=== PATIENT | female | born 1925 | race Caucasian/White ===

== ENCOUNTER 2017-09-30 12:01 | Emergency (ER) | payer MEDICARE, OTHER ==
[~2017-09-30] VITALS: Ht 162.6 cm; Wt 63.5 kg
[2017-09-30 12:05] VITALS: BP 175/97
--- OUTSIDE RECORDS SUMMARY | 2017-09-30 12:13 | XMS REPORT | CCD ---
Author Author SCHUYLER JHA Unknown Address [address] [address] [place], [place] [id number] Care Team Providers Care Pediatric Acute Care Unit Nurse Name Role Phone [facility] Attphys SARAI CARDENAS MD Prisurg W., EVANGELINA Patrick NASST W., LOS NASST S., GERDA NASST F., ROBER NASST K., LORIN NASST R., VERA Martines NASST Vital Signs Vital Sign Value Unit Date/Time Recent/Initial? Weight Measured 157.06 lbs 02/06/2015 17:45 Initial VS Height 65 in 02/06/2015 17:45 Initial VS BMI (Body Mass Index) 26.14 kg/m^2 02/06/2015 17:45 Initial VS BSA (Body Surface Area) 1.81 m^2 02/06/2015 17:45 Initial VS BP Systolic 141 mmHg 02/06/2015 17:45 Initial VS BP Diastolic 64 mmHg 02/06/2015 17:45 Initial VS Respiratory Rate 20 bpm 02/06/2015 17:45 Initial VS Heart Rate 81 bpm 02/06/2015 17:45 Initial VS O2 % BldC Oximetry 93 % 02/06/2015 17:45 Initial VS Body Temperature 97.5 degrees 02/06/2015 17:45 Initial VS BP Systolic 110 mmHg 02/07/2015 11:44 Most Recent VS BP Diastolic 51 mmHg 02/07/2015 11:44 Most Recent VS Respiratory Rate 18 bpm 02/07/2015 11:44 Most Recent VS Heart Rate 83 bpm 02/07/2015 11:44 Most Recent VS O2 % BldC Oximetry 95 % 02/07/2015 11:44 Most Recent VS Body Temperature 97.8 degrees 02/07/2015 11:44 Most Recent VS Allergies Allergy Code Allergy Type Reaction Status No Known Drug Allergies 0 No known drug allergies Active Procedures Procedure Code Procedure Type Date PT EVALUATION 227068425 SNOMED CT 02/07/2015 CX CHEST [address] 02/06/2015 ^CBC W/ MANUAL DIFF 98011338 SNOMED CT 02/07/[address] 02/07/[address] 02/07/[address] 02/07/[address] 02/07/2015 COMPREHENSIVE METABOLIC PANEL 842373301 SNOMED CT [address] 02/06/[address] 02/06/2015 ^UA WITH MICRO 821304591 SNOMED CT 02/06/2015 CULTURE URINE 625387603 SNOMED [address] 02/06/[address] 02/06/2015 UA ROUTINE C&S IF IND 296015348 SNOMED CT 02/06/2015 CREATININE UR RANDOM 933581742 SNOMED CT 02/06/2015 SODIUM UR RANDOM 022388773 SNOMED CT 02/06/2015 CULTURE BLOOD 64019290 SNOMED [address] 02/06/[address] 02/07/[address] 02/07/2015 CBC W/ AUTO DIFF (RFLX MAN DIFF IF IND) 0933101 SNOMED CT 02/07/2015 ^CBC W/ MANUAL DIFF 28077486 SNOMED CT 02/06/2015 COMPREHENSIVE METABOLIC PANEL 932647831 SNOMED CT 2014 CBC W/ AUTO DIFF (RFLX MAN DIFF IF IND) 6963858 SNOMED CT 02/06/2015 History of Immunizations Unknown or Not Available. Problems Problem Code Start Date Resolved Date Status Acute renal failure 23849721 Active Results COMPREHENSIVE METABOLIC PANEL - Collect Date/Time: 02/07/2015 07:05 Test Name Code Test Result Test Units Test Ref Range GLUCOSE 2345-7 108 MG/DL L=70 H=100 SODIUM 2951-2 137 MEQ/L L=135 H=148 POTASSIUM 2823-3 4.6 MEQ/L L=3.5 H=5.3 CHLORIDE 2075-0 107 MEQ/L L=96 H=110 CO2 2028-9 21 MEQ/L L=22 H=29 BUN 3094-0 41 MG/DL L=8 H=22 CREATININE 2160-0 4.1 MG/DL L=0.6 H=1.6 SGOT/AST 1920-8 190 IU/L L=10 H=40 SGPT/ALT 1742-6 87 IU/L L=8 H=54 ALK PHOS 6768-6 70 IU/L L=35 H=115 TOTAL PROTEIN 2885-2 5.5 G/DL L=5.5 H=8.5 ALBUMIN 1751-7 3.1 G/DL L=3.1 H=5.4 TOTAL BILI 1975-2 0.4 MG/DL L=0.0 H=1.5 CALCIUM 73856-4 7.5 MG/DL L=8.2 H=10.6 AGE 89 yrs GFR NonAA 10 GFR AA 12 eGFR 10 mL/min/1.7 eGFR AA* 12 mL/min/1.7 COMPREHENSIVE METABOLIC PANEL - Collect Date/Time: 02/06/2015 16:35 Test Name Code Test Result Test Units Test Ref Range GLUCOSE 2345-7 102 MG/DL L=70 H=100 SODIUM 2951-2 133 MEQ/L L=135 H=148 POTASSIUM 2823-3 4.2 MEQ/L L=3.5 H=5.3 CHLORIDE 2075-0 97 MEQ/L L=96 H=110 CO2 2028-9 22 MEQ/L L=22 H=29 BUN 3094-0 33 MG/DL L=8 H=22 CREATININE 2160-0 3.6 MG/DL L=0.6 H=1.6 SGOT/AST 1920-8 219 IU/L L=10 H=40 SGPT/ALT 1742-6 97 IU/L L=8 H=54 ALK PHOS 6768-6 89 IU/L L=35 H=115 TOTAL PROTEIN 2885-2 7.3 G/DL L=5.5 H=8.5 ALBUMIN 1751-7 4.2 G/DL L=3.1 H=5.4 TOTAL BILI 1975-2 0.5 MG/DL L=0.0 H=1.5 CALCIUM 80998-6 9.1 MG/DL L=8.2 H=10.6 AGE 89 yrs GFR NonAA 12 GFR AA 15 eGFR 12 mL/min/1.7 eGFR AA* 15 mL/min/1.7 CPK - Collect Date/Time: 02/07/2015 07:05 Test Name Code Test Result Test Units Test Ref Range CPK 2157-6 8031 IU/L L=0 H=235 CPK - Collect Date/Time: 02/06/2015 16:35 Test Name Code Test Result Test Units Test Ref Range CPK 2157-6 89504 IU/L L=0 H=235 CREATININE UR RANDOM - Collect Date/Time: 02/06/2015 20:35 Test Name Code Test Result Test Units Test Ref Range CREAT UR RAND 2161-8 82.3 MG/DL SODIUM UR RANDOM - Collect Date/Time: 02/06/2015 20:35 Test Name Code Test Result Test Units Test Ref Range NA UR RANDOM 2955-3 46 MEQ/L ACETAMINOPHEN - Collect Date/Time: 02/07/2015 02:20 Test Name Code Test Result Test Units Test Ref Range ACETAMINOPHEN 3298-7 <0.60 UG/ML ACETAMINOPHEN - Collect Date/Time: 02/06/2015 22:05 Test Name Code Test Result Test Units Test Ref Range ACETAMINOPHEN 3298-7 1.28 UG/ML CBC W/ AUTO DIFF (RFLX MAN DIFF IF IND) - Collect Date/Time: 02/07/2015 07:05 Test Name Code Test Result Test Units Test Ref Range WBC 93560-8 20.5 TH/CMM L=4.5 H=10.8 RBC 789-8 3.38 ML/CMM L=4.20 H=5.40 HGB 718-7 10.2 G/DL L=12.0 H=16.0 HCT 4544-3 32.6 % L=37.0 H=47.0 MCV 96 FL L=81 H=99 MCH 30.2 PG L=27.0 H=33.0 MCHC 31.3 G/DL L=31.0 H=36.0 RDW SD 52 FL L=36 H=50 RDW CV 14.7 % L=0.0 H=14.8 MPV 11.4 FL L=9.3 H=12.5 PLT 777-3 176 TH/CMM L=130 H=440 NRBC# 0.00 TH/CMM L=0.00 H=0.00 NRBC% 0.0 /100WBC L=0.0 H=2.0 %NEUT 74.3 % %LYMP 8.8 % %MONO 16.8 % %EOS 0.0 % %BASO 0.1 % #NEUT 15.23 TH/CMM L=2.10 H=8.20 #LYMP 1.81 TH/CMM L=0.90 H=5.20 #MONO 3.45 TH/CMM L=0.16 H=1.00 #EOS 0.01 TH/CMM L=0.00 H=0.80 #BASO 0.02 TH/CMM L=0.00 H=0.20 SEGS 81 % BANDS 8 % LYMPHS 11 % MANUAL DIFF SEE BELOW N/A MICRO 1+ N/A MACRO 1+ N/A ANISO 2+ N/A CBC W/ AUTO DIFF (RFLX MAN DIFF IF IND) - Collect Date/Time: 02/06/2015 16:35 Test Name Code Test Result Test Units Test Ref Range WBC 90896-4 16.2 TH/CMM L=4.5 H=10.8 RBC 789-8 3.92 ML/CMM L=4.20 H=5.40 HGB 718-7 12.0 G/DL L=12.0 H=16.0 HCT 4544-3 38.0 % L=37.0 H=47.0 MCV 97 FL L=81 H=99 MCH 30.6 PG L=27.0 H=33.0 MCHC 31.6 G/DL L=31.0 H=36.0 RDW SD 52 FL L=36 H=50 RDW CV 14.7 % L=0.0 H=14.8 MPV 11.7 FL L=9.3 H=12.5 PLT 777-3 196 TH/CMM L=130 H=440 NRBC# 0.00 TH/CMM L=0.00 H=0.00 NRBC% 0.0 /100WBC L=0.0 H=2.0 %NEUT 77.9 % %LYMP 10.0 % %MONO 11.8 % %EOS 0.2 % %BASO 0.1 % #NEUT 12.61 TH/CMM L=2.10 H=8.20 #LYMP 1.62 TH/CMM L=0.90 H=5.20 #MONO 1.91 TH/CMM L=0.16 H=1.00 #EOS 0.03 TH/CMM L=0.00 H=0.80 #BASO 0.01 TH/CMM L=0.00 H=0.20 SEGS 86 % BANDS 3 % LYMPHS 9 % MONOS 2 % MANUAL DIFF SEE BELOW N/A ANISO 1+ N/A PROTIME - Collect Date/Time: 02/07/2015 07:05 Test Name Code Test Result Test Units Test Ref Range PROTIME 75558-1 37.3 SEC L=9.9 H=11.9 INR 3.6 PROTIME - Collect Date/Time: 02/06/2015 16:35 Test Name Code Test Result Test Units Test Ref Range PROTIME 33518-5 28.6 SEC L=9.9 H=11.9 INR 2.8 UA ROUTINE C&S IF IND - Collect Date/Time: 02/06/2015 20:35 Test Name Code Test Result Test Units Test Ref Range COLOR YELLOW N/A NL: YELLOW APPEARANCE CLOUDY N/A NL: CLEAR SPEC GRAV 1.020 N/A NL: 1.002 - 1.022 pH 5.5 N/A NL: 5 - 9 PROTEIN 100 N/A NL: NEGATIVE mg/dl GLUCOSE NEGATIVE N/A NL: NEGATIVE mg/dl KETONE TRACE N/A NL: NEGATIVE mg/dl BILIRUBIN NEGATIVE N/A NL: NEGATIVE BLOOD LARGE N/A NL: NEGATIVE NITRITE NEGATIVE N/A NL: NEGATIVE LEUK SCREEN NEGATIVE N/A NL: NEGATIVE MICRO INDICATED? SEE BELOW N/A WBC/HPF 5-10 N/A NL: NEGATIVE RBC/HPF 5-10 N/A NL: NEGATIVE CASTS/LPF FEW HYALINE N/A NL: NEGATIVE CRYSTALS 1+ AMORPHOUS N/A NL: NEGATIVE MUCOUS THRDS NEGATIVE N/A NL: NEGATIVE BACTERIA 2++ N/A NL: NEGATIVE EPITH CELLS FEW SQUAMOUS N/A NL: NEGATIVE TRICHOMONAS NEGATIVE N/A NL: NEGATIVE YEAST NEGATIVE N/A NL: NEGATIVE CULT SET UP? YES N/A TSH - Collect Date/Time: 02/07/2015 07:05 Test Name Code Test Result Test Units Test Ref Range TSH 30965-0 2.02 mIU/L L=0.35 H=4.94 MAGNESIUM - Collect Date/Time: 02/07/2015 07:05 Test Name Code Test Result Test Units Test Ref Range MAGNESIUM 55356-0 2.2 MG/DL L=1.7 H=2.8 PHOSPHORUS - Collect Date/Time: 02/07/2015 07:05 Test Name Code Test Result Test Units Test Ref Range PHOSPHORUS 2777-1 4.3 MG/DL L=2.5 H=4.5 Active Medications Medication Code Dose Units Frequency Route Modification Start Date/Time NS 1000 ML IV [PREDEFINED] (7983) 999483 CONT IV IV 02/07/2015 02:32 ~~ NACL 0.9% (7983) 1000ML IV BAG 081847 4243 ML LEVOTHYROXINE (SYNTHROID)75 MCG 820682 75 MCG DAILY PO 02/06/2015 21:41 ZITHROMAX 500MG ADV IV [PREDEFINED] 571761 Q24H IVPB 02/06/2015 21:00 ~~ AZITHROMYCIN [ZITHROMAX]ADV VIAL : 500MG 035408 500 MG ~~ NACL 0.9% ADD-VANTAGE: 250 ML BAG 322578 250 ML ROCEPHIN IV [PREDEFINED]: 1GM IV Q 24 HR 021911 Q24H IVPB 02/06/2015 18:00 ~~ cefTRIAXone [ROCEPHIN] 1 GM ADV VIAL 714940 1 GM ~~ NACL 0.9% ADD-VANTAGE: 100 ML BAG 218986 100 ML ONDANSETRON [ZOFRAN] INJ 4 MG/2 ML VIAL 859131 4 MG PRN SIVP 02/06/2015 17:20 CHARISSA-COLACE (NEW FORMULATION) TABLET 324770 2 EA BID PO 02/06/2015 17:20 NACL 0.9% 500 ML IV BAG (7983-03) 177258 X1 IV 02/04/2015 01:30 ~~ NACL 0.9% 500 ML IV BAG (7983-03) 529448 500 ML Medications Administered During Visit Medication Dose Units Frequency Route Date/ Time of Last Dose ROCEPHIN IV [PREDEFINED]: 1GM IV Q 24 HR Q24H IVPB 02/06/2015 23:33 CHARISSA-COLACE (NEW FORMULATION) TABLET 2 TAB BID PO 02/07/2015 08:14 HEPARIN: 5000 UNITS/1ML VIAL 5000 UNIT(S) Q8H SQ 02/06/2015 19:57 NACL 0.9% 500 ML IV BAG (7983-03) X1 IV 02/06/2015 20:03 ZITHROMAX 500MG ADV IV [PREDEFINED] Q24H IVPB 02/06/2015 21:22 LEVOTHYROXINE (SYNTHROID)75 MCG 75 MCG DAILY PO 02/07/2015 06:55 NACL 0.9% 500 ML IV BAG (7983-03) X1 IV 02/06/2015 23:34 NACL 0.9% 500 ML IV BAG (7983-03) X1 IV 02/07/2015 01:25 NS 1000 ML IV [PREDEFINED] (7983) CONT IV IV 02/07/2015 02:56 Encounters Encounter Diagnosis Diagnosis Code Start Date ACUTE KIDNEY FAILURE UNSPECIFIED 5849 02/06/2015 Social History Smoking Status Code Start Date End Date Former smoker [id number] Patient Decision Aids Patient Decision Aid PATIENT PORTAL ACCESS Discharge Instructions You were admitted to [facility] on 02/06/2015 with a principal diagnosis of ACUTE KIDNEY FAILURE UNSPECIFIED. You were discharged from [facility] on 02/07/2015. Should you have any questions prior to discharge, please contact a member of your healthcare team. If you have left the hospital and have any questions, please contact your primary care physician. PATIENT PORTAL/ OTHER INSTRUCTIONS: Assisted on to Patient Portal. CHIEF COMPLAINT: patient presents to ER wiht c/o increasing weakness and falling 3 days. patient had recently seen her PCP. Chief Complaint and Reason For Visit Chief Complaint Date of Onset DELIRIUM UTI Function Status Unknown or Not Available. Plan of Care Unknown or Not Available. Referral/Transition of Care Unknown or Not Available.
--- OUTSIDE RECORDS SUMMARY | 2017-09-30 12:15 | XMS REPORT ---
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 Crop Research Scientist Name Role Phone PCP Unavailable Allergies and Adverse Reactions Name Reaction Notes doxycycline hyclate hives/ vomiting Plan of Treatment Planned Activity Comments Planned Date Planned Time Plan/Goal ASSAY THYROID STIM HORMONE 10/16/2012 12:00 AM PROTHROMBIN TIME 10/04/2014 12:00 AM Medications Active Name Start Date Estimated Completion Date SIG Comments flecainide oral tablet 100 mg take 1 tablet (100 mg) by oral route every 12 hours pravastatin oral tablet 40 mg 01/11/2014 01/06/2015 TAKE 1 TABLET BY MOUTH EVERY DAY amlodipine oral tablet 5 mg take 1 tablet (5 mg) by oral route once daily levothyroxine Oral tablet 75 mcg 05/07/2014 11/03/2014 TAKE 1 TABLET BY MOUTH DAILY for 30 days levothyroxine oral tablet 75 mcg 05/08/2014 TAKE ONE TABLET BY MOUTH DAILY levothyroxine oral tablet 75 mcg 05/08/2014 TAKE ONE TABLET BY MOUTH DAILY Lyrica oral capsule 75 mg 06/03/2014 11/30/2014 take 1 capsule (75 mg) by oral route 2 times per day for 30 days Pradaxa oral capsule 150 mg 07/17/2014 01/13/2015 take 1 capsule (150 mg) by oral route 2 times per day for 30 days prednisone oral tablet 1 mg 07/17/2014 01/08/2016 take 1tab by oral route once daily prednisone oral tablet 5 mg 07/17/2014 07/12/2015 take 1 tablet (5 mg) by oral route once daily for 90 days alprazolam oral tablet 0.25 mg 08/23/2014 11/21/2014 take 1 tablet by oral route 2 times a day for 90 days warfarin oral tablet 5 mg 10/04/2014 11/03/2014 take 1 tablet (5 mg) by oral route once daily for 30 days Name Start Date Expiration Date SIG Comments Neurontin Oral Capsule 300 mg 07/29/2010 01/25/2011 take 1 capsule (300 mg) by oral route 3 times per day for 30 days prednisone Oral Tablet 1 mg 09/30/2011 09/30/2011 take 3 tabs by mouth daily prednisone Oral Tablet 5 mg 12/16/2011 01/15/2012 TAKE 3 TABLETS BY MOUTH EVERY DAY levothyroxine Oral tablet 75 mcg 06/14/2012 09/12/2012 TAKE 1 TABLET BY MOUTH DAILY prednisone Oral tablet 1 mg 09/06/2012 10/06/2012 TAKE 3 TABLETS BY MOUTH DAILY hydrocodone-acetaminophen Oral tablet 5-500 mg 10/16/2012 01/14/2013 take 1 tablet by oral route 2 times a day as needed for 30 days gabapentin Oral capsule 300 mg 03/27/2013 06/25/2013 TAKE 1 CAPSULE BY MOUTH THREE TIMES DAILY losartan oral tablet 25 mg 04/15/2014 08/13/2014 take 1 tablet (25 mg) by oral route once daily for 30 days Lasix oral tablet 40 mg 04/15/2014 07/14/2014 take 1 tablet (40 mg) by oral route once daily for 30 days potassium chloride oral capsule, extended release 10 mEq 04/15/2014 07/14/2014 take 1 capsule (10 meq) by oral route once daily for 30 days Discontinued Name Start Date Discontinued Date SIG Comments Warfarin Oral Tablet 5 mg 07/17/2014 1/2 tablet on mon and th and 1 tablet all other days Metoprolol Succinate Oral Tablet Sustained Release 24 hr 25 mg 03/07/2014 take 1/2 tablet BID Metanx Oral Tablet 2.8-2-25 mg 09/18/2013 take 1 tablet by oral route 2 times a day Loratadine Oral Tablet 10 mg 09/17/2009 03/07/2014 take 1 tablet (10 mg) by oral route once daily Spiriva with HandiHaler Inhalation Capsule, w/Inhalation Device 18 mcg 200904/13/2011 inhale 1 capsule (18 mcg) by inhalation route once daily Triamcinolone Acetonide Topical Cream 0.1 % 08/21/2010 04/13/2011 apply a thin film to the affected skin areas by topical route 2 times per day Tramadol Oral Tablet 50 mg 09/30/2010 04/13/2011 take 1 tablet by oral route 3 times a day as needed Fosamax Oral Tablet 70 mg 09/18/2013 take 1 tablet by oral route doxycycline hyclate Oral Tablet 100 mg 12/01/2010 12/02/2010 take 1 tablet ( 100 mg) by oral route 2 times per day for 10 days Bactrim DS Oral Tablet 800-160 mg 12/02/2010 take 1 tablet by oral route 2 times per day for 7 days Bactrim DS Oral Tablet 800-160 mg 01/15/2011 take 1 tablet by oral route 2 times per day for 10 days Macrobid Oral Capsule 100 mg 01/15/2011 04/13/2011 take 1 capsule (100 mg) by oral route every 12 hours with food prednisone Oral Tablet 5 mg 01/18/2011 07/08/2011 take 1 mg/kg by oral route once daily terbinafine Oral Tablet 250 mg 01/21/2011 04/13/2011 take 1 tablet (250 mg) by oral route once daily for 12 weeks albuterol sulfate Inhalation HFA Aerosol Inhaler 90 mcg/Actuation 08/16/2011 inhale 1 - 2 puffs by inhalation route every 4 hours as needed promethazine-codeine Oral Syrup 6.25-10 mg/5 mL 08/16/2011 10/16/2012 take 5 milliliters by oral route every 6 hours as needed, not to exceed 30 mL in 24 hours tramadol Oral Tablet 50 mg 09/21/2011 09/18/2013 take 1 tablet (50 mg) by oral route every 6 hours as needed gabapentin Oral capsule 300 mg 02/16/2012 05/10/2012 TAKE 1 CAPSULE BY MOUTH THREE TIMES DAILY tramadol oral tablet 50 mg 03/07/2014 take 1 tablet (50 mg) by oral route every 6 hours as needed prednisone oral tablet 5 mg 02/14/2014 03/07/2014 TAKE 3 TABLETS BY ORAL ROUTE DAILY FOR 30 DAYS prednisone oral tablet 1 mg 02/14/2014 03/07/2014 take 1 tablets by oral route 3 times a day for 30 days warfarin oral tablet 5 mg 10/04/2014 Problem List Description Status Onset Anxiety Active Atrial Fibrillation Active Chronic Obstructive Pulmonary Disease Active Hyperlipidemia Active Hypertension Active hypothyroid Active Osteopenia Active Polymyalgia Rheumatica Active 07/03/2013 Numbness and Tingling Active bilateral LE Dysphagia Active 04/15/2014 Carpal tunnel syndrome Active 04/15/2014 Vitamin deficiency Active 04/15/2014 Vital Signs Date Time BP-Sys(mm[Hg] BP-Andree(mm[Hg]) HR(bpm) RR(rpm) Temp WT HT HC BMI BSA BMI Percentile O2 Sat(%) 09/24/2014 1:47:00 PM 133 mmHg 65 mmHg 09/24/2014 1:47:00 PM 100 mmHg 68 mmHg 09/24/2014 1:47:00 PM 108 mmHg 62 mmHg 09/24/2014 1:16:00 PM 136 mmHg 76 mmHg 86 bpm 18 rpm 97.6 F 171.125 lbs 95 % 07/17/2014 3:37:00 PM 122 mmHg 65 mmHg 95 bpm 18 rpm 97.1 F 172 lbs 63 in 30.4681 kg/m 1.8622 m 95 % 04/15/2014 3:43:00 PM 138 mmHg 68 mmHg 86 bpm 16 rpm 97.9 F 173 lbs 63 in 30.65 kg/m2 1.87 m2 96 % 03/07/2014 1:13:00 PM 134 mmHg 70 mmHg 62 bpm 16 rpm 97.6 F 173.375 lbs 64 in 29.7594 kg/m 1.8844 m 01/17/2014 11:30:00 AM 160 mmHg 72 mmHg 72 bpm 20 rpm 97.4 F 168.8 lbs 65 in 28.09 kg/m2 1.87 m2 96 % 09/18/2013 9:56:00 AM 155 mmHg 78 mmHg 76 bpm 18 rpm 97.2 F 177 lbs 65 in 29.454 kg/m 1.9189 m 93 % 06/29/2013 11:31:00 AM 130 mmHg 70 mmHg 65 bpm 18 rpm 98.3 F 174 lbs 96 % 05/07/2013 1:03:00 PM 138 mmHg 72 mmHg 74 bpm 16 rpm 96.5 F 170 lbs 93 % 01/23/2013 2:39:00 PM 150 mmHg 78 mmHg 73 bpm 20 rpm 97.8 F 166.4 lbs 65 in 27.69 kg/m2 1.86 m2 96 % 11/27/2012 11:26:00 AM 152 mmHg 68 mmHg 70 bpm 20 rpm 97.5 F 171.6 lbs 65 in 28.5554 kg/m 1.8894 m 96 % 11/02/2012 3:24:00 PM 132 mmHg 68 mmHg 72 bpm 18 rpm 97 F 167.5 lbs 65 in 27.87 kg/m2 1.87 m2 10/16/2012 1:20:00 PM 130 mmHg 70 mmHg 75 bpm 16 rpm 97.5 F 170 lbs 95 % 06/27/2012 11:54:00 AM 110 mmHg 64 mmHg 72 bpm 16 rpm 96.4 F 165 lbs 65 in 27.46 kg/m2 1.85 m2 05/10/2012 2:39:00 PM 134 mmHg 64 mmHg 72 bpm 16 rpm 97.6 F 160 lbs 65 in 26.6251 kg/m 1.8244 m 04/19/2012 1:57:00 PM 112 mmHg 58 mmHg 88 bpm 18 rpm 97.4 F 165 lbs 65 in 27.46 kg/m2 1.85 m2 02/17/2012 4:11:00 PM 138 mmHg 68 mmHg 73 bpm 16 rpm 98.3 F 158.5 lbs 97 % 12/16/2011 1:06:00 PM 124 mmHg 70 mmHg 77 bpm 16 rpm 97.7 F 158.25 lbs 95 % 09/29/2011 3:53:00 PM 130 mmHg 70 mmHg 81 bpm 16 rpm 97.6 F 168.5 lbs 97 % 09/21/2011 3:47:00 PM 180 mmHg 100 mmHg 75 bpm 16 rpm 97.6 F 172.5 lbs 95 % 09/08/2011 1:48:00 PM 152 mmHg 70 mmHg 78 bpm 16 rpm 97.4 F 171.375 lbs 94 % 08/16/2011 11:07:00 AM 124 mmHg 70 mmHg 98 bpm 16 rpm 97 F 174 lbs 95 % 08/11/2011 10:29:00 AM 130 mmHg 62 mmHg 97 bpm 20 rpm 99.1 F 171.25 lbs 65 in 28.4972 kg/m 1.8874 m 91 % 07/08/2011 1:32:00 PM 138 mmHg 74 mmHg 68 bpm 18 rpm 96.6 F 176.5 lbs 65 in 29.37 kg/m2 1.92 m2 04/13/2011 10:01:00 AM 138 mmHg 70 mmHg 73 bpm 16 rpm 96.2 F 172.125 lbs 95 % 01/21/2011 2:04:00 PM 162 mmHg 80 mmHg 80 bpm 16 rpm 98.1 F 171.5 lbs 94 % 12/01/2010 9:12:00 AM 122 mmHg 78 mmHg 71 bpm 20 rpm 97.1 F 170.5 lbs 98 % 11/16/2010 2:58:00 PM 160 mmHg 72 mmHg 79 bpm 16 rpm 96.8 F 172.375 lbs 95 % 10/19/2010 2:12:00 PM 136 mmHg 70 mmHg 78 bpm 16 rpm 98.8 F 172.375 lbs 94 % 10/05/2010 2:07:00 PM 134 mmHg 70 mmHg 86 bpm 18 rpm 97.1 F 172 lbs 95 % 09/30/2010 10:06:00 AM 148 mmHg 78 mmHg 74 bpm 20 rpm 97 F 178.5 lbs 98 % 09/07/2010 4:03:00 PM 170 mmHg 90 mmHg 73 bpm 16 rpm 96.8 F 164 lbs 97 % 08/21/2010 9:20:00 AM 126 mmHg 70 mmHg 79 bpm 16 rpm 96.4 F 172.5 lbs 96 % 05/20/2010 1:09:00 PM 110 mmHg 66 mmHg 73 bpm 16 rpm 96.9 F 168 lbs 99 % 04/20/2010 10:46:00 AM 142 mmHg 82 mmHg 70 bpm 16 rpm 97 F 166.25 lbs 09/17/2009 11:09:00 AM 150 mmHg 80 mmHg 80 bpm 18 rpm 96.3 F 169 lbs 65 in 28.12 kg/m2 1.87 m2 Social History Name Description Comments Tobacco Never smoker History of Procedures Date Ordered Description Order Status 04/13/2011 12:00 AM COMPREHEN METABOLIC PANEL Reviewed 04/13/2011 12:00 AM LIPID PANEL Reviewed 04/13/2011 12:00 AM ASSAY THYROID STIM HORMONE Reviewed 04/13/2011 12:00 AM COMPLETE CBC W/AUTO DIFF WBC Reviewed 04/13/2011 12:00 AM RBC SED RATE AUTOMATED Reviewed 08/11/2011 12:00 AM CHEST X-RAY 2VW FRONTAL&LATL Returned 08/11/2011 12:00 AM THER/PROPH/DIAG INJ SC/IM Reviewed 08/12/2011 12:00 AM THER/PROPH/DIAG INJ SC/IM Reviewed 08/13/2011 12:00 AM THER/PROPH/DIAG INJ SC/IM Reviewed 08/16/2011 12:00 AM CHEST X-RAY 2VW FRONTAL&LATL Returned 12/16/2011 12:00 AM COMPREHEN METABOLIC PANEL Returned 12/16/2011 12:00 AM ASSAY THYROID STIM HORMONE Returned 12/16/2011 12:00 AM COMPLETE CBC W/AUTO DIFF WBC Reviewed 12/16/2011 12:00 AM VITAMIN B-12 Returned 12/16/2011 12:00 AM ASSAY OF MAGNESIUM Returned 12/16/2011 12:00 AM ASSAY OF VITAMIN B-6 Returned 02/03/2012 12:00 AM ASSAY THYROID STIM HORMONE Returned 10/16/2012 12:00 AM COMPREHEN METABOLIC PANEL Returned 10/16/2012 12:00 AM LIPID PANEL Returned 10/16/2012 12:00 AM COMPLETE CBC W/AUTO DIFF WBC Returned 11/27/2012 12:00 AM X-RAY EXAM OF WRIST Returned 11/27/2012 12:00 AM X-RAY EXAM OF HAND Returned 01/23/2013 12:00 AM MAMMOGRAM SCREENING Returned 05/07/2013 12:00 AM COMPREHEN METABOLIC PANEL Returned 05/07/2013 12:00 AM ASSAY THYROID STIM HORMONE Returned 05/07/2013 12:00 AM COMPLETE CBC W/AUTO DIFF WBC Returned 09/18/2013 12:00 AM COMPLETE CBC W/AUTO DIFF WBC Returned 09/18/2013 12:00 AM COMPREHEN METABOLIC PANEL Returned 09/18/2013 12:00 AM LIPID PANEL Returned 02/25/2010 12:00 AM COMPLETE CBC W/AUTO DIFF WBC Reviewed 02/25/2010 12:00 AM LIPID PANEL Reviewed 02/25/2010 12:00 AM COMPREHEN METABOLIC PANEL Reviewed 02/25/2010 12:00 AM ASSAY THYROID STIM HORMONE Reviewed 02/25/2010 12:00 AM PROTHROMBIN TIME Reviewed 01/17/2014 12:00 AM MRI LUMBAR SPINE W/O DYE Returned 04/15/2014 12:00 AM COMPLETE CBC W/AUTO DIFF WBC Returned 04/15/2014 12:00 AM COMPREHEN METABOLIC PANEL Returned 04/15/2014 12:00 AM LIPID PANEL Returned 04/15/2014 12:00 AM VITAMIN B-12 Returned 04/15/2014 12:00 AM ASSAY THYROID STIM HORMONE Returned 04/15/2014 12:00 AM ASSAY OF FOLIC ACID SERUM Returned 04/15/2014 12:00 AM VIT D 1 25-DIHYDROXY Returned 09/30/2010 12:00 AM ASSAY OF CK (CPK) Reviewed 09/30/2010 12:00 AM ASSAY OF BLOOD/URIC ACID Reviewed 09/30/2010 12:00 AM LYME DISEASE ANTIBODY Reviewed 09/30/2010 12:00 AM LYME DISEASE ANTIBODY Reviewed 09/30/2010 12:00 AM SYPHILIS TEST NON-TREP QUAL Reviewed 09/30/2010 12:00 AM RHEUMATOID FACTOR QUANT Reviewed 09/30/2010 12:00 AM COMPLETE CBC W/AUTO DIFF WBC Reviewed 09/30/2010 12:00 AM X-RAY EXAM L-S SPINE BENDING Reviewed 09/30/2010 12:00 AM X-RAY EXAM OF HIPS Reviewed 01/15/2011 12:00 AM URINALYSIS AUTO W/SCOPE Reviewed Results Summary Data and Description Results 09/17/2009 11:09 AM Colonoscopy-Women and Men over 50 Normal Mammogram -Women over 40 Normal Pap Smear Declined 02/25/2010 10:05 AM TRIGLYCERIDES 188.0 mg/dLCHOLESTEROL 162.0 mg/dLHDL 48.0 mg /dLLDL (CALC) 76.0 mg/dLPROTIME 18.10 secsINR 1.7 TSH 0.610 uIU/mLWBC 7.1 RBC 4.48 HGB 13.80 g/dLHCT 41.70 %MCV 93.0 fLMCH 30.80 pgMCHC 33.10 g/dLRDW CV 14.10 %MPV 10.90 fLPLT 197 %NEUT 53.90 %%LYMP 33.30 %%MONO 8.0 %%EOS 4.10 %% BASO 0.70 %#NEUT 3.83 #LYMP 2.37 #MONO 0.57 #EOS 0.29 #BASO 0.05 GLUCOSE 107.0 mg/dLSODIUM 141.0 mmol/LPOTASSIUM 4.10 mmol/LCHLORIDE 104.0 mmol/LCO2 26.0 mmol/ LBUN 24.0 mg/dLCREATININE 1.0 mg/dLSGOT/AST 23.0 IU/LSGPT/ALT 12.0 IU/LALK PHOS 79.0 IU/LTOTAL PROTEIN 7.30 g/dLALBUMIN 4.10 g/dLTOTAL BILI 0.60 mg/dLCALCIUM 9.50 mg/dLeGFR 53 09/09/2010 2:15 PM C DIFFICILE NEGATIVE -- C DIFF TOXIN NOT DETECTED 09/30/2010 10:45 AM URIC ACID 5.0 mg/dLCPK 84 IU/LSEDRATE 96.0 mm/hrWBC 9.1 RBC 3.99 HGB 11.80 g/dLHCT 37.10 %MCV 93.0 fLMCH 29.60 pgMCHC 31.80 g/dLRDW CV 14.30 %MPV 9.90 fLPLT 305 %NEUT 64.40 %%LYMP 20.50 %%MONO 10.80 %%EOS 3.60 %% BASO 0.70 %#NEUT 5.86 #LYMP 1.86 #MONO 0.98 #EOS 0.33 #BASO 0.06 01/15/2011 11:10 AM COLOR YELLOW APPEARANCE CLOUDY SPEC GRAV >=1.030 pH 6.0 PROTEIN 30 GLUCOSE NEGATIVE KETONE NEGATIVE BILIRUBIN NEGATIVE BLOOD LARGE NITRITE POSITIVE LEUK SCREEN LARGE CASTS/LPF NEGATIVE CRYSTALS NEGATIVE MUCOUS THRDS NEGATIVE BACTERIA 2++ EPITH CELLS 1+ SQUAMOUS TRICHOMONAS NEGATIVE YEAST NEGATIVE 12/16/2011 1:50 PM WBC 8.1 RBC 4.07 HGB 12.20 g/dLHCT 38.60 %MCV 95.0 fLMCH 30.0 pgMCHC 31.60 g/dLRDW CV 13.60 %MPV 11.0 fLPLT 227 %NEUT 57.30 %%LYMP 28.50 %%MONO 9.0 %%EOS 4.30 %%BASO 0.90 %#NEUT 4.65 #LYMP 2.31 #MONO 0.73 #EOS 0.35 # BASO 0.07 GLUCOSE 100.0 mg/dLSODIUM 144.0 mmol/LPOTASSIUM 4.30 mmol/LCHLORIDE 107.0 mmol/LCO2 29.0 mmol/LBUN 20.0 mg/dLCREATININE 0.90 mg/dLSGOT/AST 18.0 IU/ LSGPT/ALT 7.0 IU/LALK PHOS 78.0 IU/LTOTAL PROTEIN 6.60 g/dLALBUMIN 4.20 g/ dLTOTAL BILI 0.30 mg/dLCALCIUM 9.10 mg/dLeGFR 60 TSH 0.070 uIU/mLMAGNESIUM 2.40 mg/dLVITAMIN B12 231.0 pg/mL 03/17/2012 3:52 PM TSH 2.150 uIU/mL 04/19/2012 3:25 PM VITAMIN B12 605.0 pg/mLFOLATE 9.30 ng/mL 10/16/2012 1:24 PM Colonoscopy-Women and Men over 50 Declined Mammogram -Women over 40 Declined Pap Smear Declined 10/18/2012 10:22 AM WBC 6.5 RBC 4.21 HGB 13.0 g/dLHCT 39.70 %MCV 94.0 fLMCH 30.90 pgMCHC 32.70 g/dLRDW CV 14.50 %MPV 10.70 fLPLT 214 %NEUT 53.40 %%LYMP 33.10 %%MONO 9.40 %%EOS 3.20 %%BASO 0.90 %#NEUT 3.47 #LYMP 2.15 #MONO 0.61 #EOS 0.21 #BASO 0.06 GLUCOSE 101.0 mg/dLSODIUM 142.0 mmol/LPOTASSIUM 3.80 mmol/ LCHLORIDE 106.0 mmol/LCO2 25.0 mmol/LBUN 24.0 mg/dLCREATININE 1.0 mg/dLSGOT/AST 21.0 IU/LSGPT/ALT 9.0 IU/LALK PHOS 111.0 IU/LTOTAL PROTEIN 7.20 g/dLALBUMIN 4.10 g/dLTOTAL BILI 0.50 mg/dLCALCIUM 9.60 mg/dLeGFR 53 TRIGLYCERIDES 168.0 mg/ dLCHOLESTEROL 156.0 mg/dLHDL 45.0 mg/dLLDL (CALC) 77.0 mg/dLTSH 3.580 uIU/mL 11/27/2012 12:38 PM PROTIME POCT 43.40 secsINR POCT 3.6 PROTIME POCT 43.40 secsINR POCT 3.6 05/07/2013 2:08 PM WBC 10.1 RBC 4.32 HGB 13.40 g/dLHCT 41.40 %MCV 96.0 fLMCH 31.0 pgMCHC 32.40 g/dLRDW CV 15.20 %MPV 11.10 fLPLT 227 %NEUT 82.60 %%LYMP 14.50 %%MONO 2.70 %%EOS 0.10 %%BASO 0.10 %#NEUT 8.30 #LYMP 1.46 #MONO 0.27 #EOS 0.01 #BASO 0.01 GLUCOSE 123.0 mg/dLSODIUM 140.0 mmol/LPOTASSIUM 4.10 mmol/ LCHLORIDE 103.0 mmol/LCO2 27.0 mmol/LBUN 26.0 mg/dLCREATININE 1.0 mg/dLSGOT/AST 29.0 IU/LSGPT/ALT 23.0 IU/LALK PHOS 81.0 IU/LTOTAL PROTEIN 7.30 g/dLALBUMIN 4.50 g/dLTOTAL BILI 0.40 mg/dLCALCIUM 10.10 mg/dLeGFR 53 TSH 1.490 uIU/mL 04/17/2014 10:40 AM GLUCOSE 107.0 mg/dLSODIUM 142.0 mmol/LPOTASSIUM 3.80 mmol/ LCHLORIDE 105.0 mmol/LCO2 26.0 mmol/LBUN 22.0 mg/dLCREATININE 1.10 mg/dLSGOT/ AST 28.0 IU/LSGPT/ALT 17.0 IU/LALK PHOS 74.0 IU/LTOTAL PROTEIN 7.80 g/dLALBUMIN 4.60 g/dLTOTAL BILI 0.80 mg/dLCALCIUM 10.0 mg/dLeGFR 47 TRIGLYCERIDES 163.0 mg/ dLCHOLESTEROL 177.0 mg/dLHDL 66.0 mg/dLLDL (CALC) 78.0 mg/dLWBC 7.8 RBC 4.18 HGB 13.30 g/dLHCT 39.80 %MCV 95.0 fLMCH 31.80 pgMCHC 33.40 g/dLMPV 10.90 fLPLT 205 %NEUT 78.10 %%LYMP 16.80 %#NEUT 6.10 #LYMP 1.30 VITAMIN D 18.30 ng/mLTSH 1.720 uIU/mLVITAMIN B12 321.0 pg/mLFOLATE 17.40 ng/mL History Of Immunizations Name Date Admin Mfg Name Mfg Code Trade Name Lot# Route Inj Vis Given Vis Pub CVX Influenza 04/01/2011 Not Entered NE Not Entered Not Entered Not Entered 04/01/2011 06/13/2015 141 History of Past Illness Name Date of Onset Comments Hypertension Anxiety hypothyroid Hyperlipidemia Atrial Fibrillation Chronic Obstructive Pulmonary Disease Rhinitis, Allergic Sep 17 2009 11:11AM Chronic Obstructive Pulmonary Disease Sep 17 2009 11:11AM Skin lesion, non-healing:face, trunk, extremities Sep 17 2009 11:11AM Osteopenia spinal stenosis polymyalgia rheumatica Pneumonia Polymyalgia Rheumatica 07/03/2013 Hypertension Feb 25 2010 9:42AM Hyperlipidemia, Unspecified Feb 25 2010 9:42AM Hypothyroidism, Acquired Feb 25 2010 9:42AM Numbness and Tingling bilateral LE Sawyer thyroiditis Dysphagia 04/15/2014 Carpal tunnel syndrome 04/15/2014 Vitamin deficiency 04/15/2014 Essential Hypertension Apr 20 2010 10:48AM Hyperlipidemia Apr 20 2010 10:48AM Atrial Fibrillation Apr 20 2010 10:48AM 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 Apr 20 2010 10:48AM Hypothyroidism, Acquired Apr 20 2010 10:48AM Anxiety Disorder Apr 20 2010 10:48AM Chronic Obstructive Pulmonary Disease Apr 20 2010 10:48AM Essential Hypertension May 20 2010 1:10PM Hyperlipidemia May 20 2010 1:10PM Atrial Fibrillation May 20 2010 1:10PM 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 May 20 2010 1:10PM Hypothyroidism, Acquired May 20 2010 1:10PM Anxiety Disorder May 20 2010 1:10PM Chronic Obstructive Pulmonary Disease May 20 2010 1:10PM Neuropathy May 20 2010 1:10PM Essential Hypertension Aug 21 2010 9:25AM Hyperlipidemia Aug 21 2010 9:25AM Atrial Fibrillation Aug 21 2010 9:25AM [facility] (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 Aug 21 2010 9:25AM Hypothyroidism, Acquired Aug 21 2010 9:25AM Neuropathy Aug 21 2010 9:25AM Anxiety Disorder Aug 21 2010 9:25AM Chronic Obstructive Pulmonary Disease Aug 21 2010 9:25AM Essential Hypertension Sep 07 2010 4:10PM Hyperlipidemia Sep 07 2010 4:10PM Atrial Fibrillation Sep 07 2010 4:10PM 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 Sep 07 2010 4:10PM Hypothyroidism, Acquired Sep 07 2010 4:10PM Neuropathy Sep 07 2010 4:10PM Anxiety Disorder Sep 07 2010 4:10PM Chronic Obstructive Pulmonary Disease Sep 07 2010 4:10PM Diarrhea Sep 07 2010 4:10PM Essential Hypertension Sep 30 2010 10:07AM Hyperlipidemia Sep 30 2010 10:07AM Atrial Fibrillation Sep 30 2010 10:07AM 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 Sep 30 2010 10:07AM Hypothyroidism, Acquired Sep 30 2010 10:07AM Low Back Pain Sep 30 2010 10:07AM Myalgia Sep 30 2010 10:07AM Osteoporosis Sep 30 2010 10:07AM Neuropathy Sep 30 2010 10:07AM Anxiety Disorder Sep 30 2010 10:07AM Chronic Obstructive Pulmonary Disease Sep 30 2010 10:07AM Pain in joint; Hip Sep 30 2010 10:07AM Essential Hypertension Oct 05 2010 2:08PM Hyperlipidemia Oct 05 2010 2:08PM Atrial Fibrillation Oct 05 2010 2:08PM 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 Oct 05 2010 2:08PM Hypothyroidism, Acquired Oct 05 2010 2:08PM Low Back Pain Oct 05 2010 2:08PM Myalgia Oct 05 2010 2:08PM Osteoporosis Oct 05 2010 2:08PM Neuropathy Oct 05 2010 2:08PM Anxiety Disorder Oct 05 2010 2:08PM Chronic Obstructive Pulmonary Disease Oct 05 2010 2:08PM Pain in joint; Hip Oct 05 2010 2:08PM Polymyalgia Rheumatica Oct 05 2010 2:08PM Essential Hypertension Oct 19 2010 2:12PM Hyperlipidemia Oct 19 2010 2:12PM Atrial Fibrillation Oct 19 2010 2:12PM [facility] (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 Oct 19 2010 2:12PM Hypothyroidism, Acquired Oct 19 2010 2:12PM Low Back Pain Oct 19 2010 2:12PM Myalgia Oct 19 2010 2:12PM Osteoporosis Oct 19 2010 2:12PM Neuropathy Oct 19 2010 2:12PM Anxiety Disorder Oct 19 2010 2:12PM Chronic Obstructive Pulmonary Disease Oct 19 2010 2:12PM Polymyalgia Rheumatica Oct 19 2010 2:12PM Essential Hypertension Nov 16 2010 2:58PM Hyperlipidemia Nov 16 2010 2:58PM Atrial Fibrillation Nov 16 2010 2:58PM [facility] (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 Nov 16 2010 2:58PM Hypothyroidism, Acquired Nov 16 2010 2:58PM Low Back Pain Nov 16 2010 2:58PM Myalgia Nov 16 2010 2:58PM Osteoporosis Nov 16 2010 2:58PM Neuropathy Nov 16 2010 2:58PM Anxiety Disorder Nov 16 2010 2:58PM Chronic Obstructive Pulmonary Disease Nov 16 2010 2:58PM Polymyalgia Rheumatica Nov 16 2010 2:58PM Cat Bite Dec 01 2010 9:12AM Dysuria Jan 15 2011 9:23AM Essential Hypertension Jan 21 2011 2:04PM Hyperlipidemia Jan 21 2011 2:04PM Atrial Fibrillation Jan 21 2011 2:04PM [facility] (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 Jan 21 2011 2:04PM Hypothyroidism, Acquired Jan 21 2011 2:04PM Low Back Pain Jan 21 2011 2:04PM Myalgia Jan 21 2011 2:04PM Osteoporosis Jan 21 2011 2:04PM Neuropathy Jan 21 2011 2:04PM Anxiety Disorder Jan 21 2011 2:04PM Chronic Obstructive Pulmonary Disease Jan 21 2011 2:04PM Polymyalgia Rheumatica Jan 21 2011 2:04PM Onychomycosis Of Toenail Jan 21 2011 2:04PM Essential Hypertension Apr 13 2011 10:00AM Hyperlipidemia Apr 13 2011 10:00AM Atrial Fibrillation Apr 13 2011 10:00AM 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 Apr 13 2011 10:00AM Hypothyroidism, Acquired Apr 13 2011 10:00AM Myalgia Apr 13 2011 10:00AM Osteoporosis Apr 13 2011 10:00AM Neuropathy Apr 13 2011 10:00AM Anxiety Disorder Apr 13 2011 10:00AM Chronic Obstructive Pulmonary Disease Apr 13 2011 10:00AM Polymyalgia Rheumatica Apr 13 2011 10:00AM Lumbar spinal stenosis Apr 13 2011 10:00AM Back Pain Jul 08 2011 1:35PM Joint Pain-left Hip Jul 08 2011 1:35PM Essential Hypertension Aug 11 2011 10:33AM Hyperlipidemia Aug 11 2011 10:33AM Atrial Fibrillation Aug 11 2011 10:33AM [facility] (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 Aug 11 2011 10:33AM Hypothyroidism, Acquired Aug 11 2011 10:33AM Myalgia Aug 11 2011 10:33AM Osteoporosis Aug 11 2011 10:33AM Neuropathy Aug 11 2011 10:33AM Anxiety Disorder Aug 11 2011 10:33AM Chronic Obstructive Pulmonary Disease Aug 11 2011 10:33AM Cough Aug 11 2011 10:33AM Polymyalgia Rheumatica Aug 11 2011 10:33AM Lumbar spinal stenosis Aug 11 2011 10:33AM Pneumonia Aug 12 2011 11:51AM Pneumonia, Bacterial Aug 11 2011 10:33AM Pneumonia Aug 13 2011 10:03AM Essential Hypertension Aug 16 2011 11:10AM Hyperlipidemia Aug 16 2011 11:10AM Atrial Fibrillation Aug 16 2011 11:10AM 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 Aug 16 2011 11:10AM Hypothyroidism, Acquired Aug 16 2011 11:10AM Myalgia Aug 16 2011 11:10AM Osteoporosis Aug 16 2011 11:10AM Neuropathy Aug 16 2011 11:10AM Anxiety Disorder Aug 16 2011 11:10AM Chronic Obstructive Pulmonary Disease Aug 16 2011 11:10AM Cough Aug 16 2011 11:10AM Pneumonia, Bacterial Aug 16 2011 11:10AM Polymyalgia Rheumatica Aug 16 2011 11:10AM Lumbar spinal stenosis Aug 16 2011 11:10AM Essential Hypertension Sep 08 2011 1:51PM Hyperlipidemia Sep 08 2011 1:51PM Atrial Fibrillation Sep 08 2011 1:51PM 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 Sep 08 2011 1:51PM Hypothyroidism, Acquired Sep 08 2011 1:51PM Myalgia Sep 08 2011 1:51PM Osteoporosis Sep 08 2011 1:51PM Neuropathy Sep 08 2011 1:51PM Anxiety Disorder Sep 08 2011 1:51PM Chronic Obstructive Pulmonary Disease Sep 08 2011 1:51PM Cough Sep 08 2011 1:51PM Pneumonia, Bacterial Sep 08 2011 1:51PM Polymyalgia Rheumatica Sep 08 2011 1:51PM Lumbar spinal stenosis Sep 08 2011 1:51PM Essential Hypertension Sep 21 2011 3:51PM Hyperlipidemia Sep 21 2011 3:51PM Atrial Fibrillation Sep 21 2011 3:51PM 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 Sep 21 2011 3:51PM Hypothyroidism, Acquired Sep 21 2011 3:51PM Myalgia Sep 21 2011 3:51PM Osteoporosis Sep 21 2011 3:51PM Neuropathy Sep 21 2011 3:51PM Anxiety Disorder Sep 21 2011 3:51PM Chronic Obstructive Pulmonary Disease Sep 21 2011 3:51PM Pneumonia, Bacterial Sep 21 2011 3:51PM Polymyalgia Rheumatica Sep 21 2011 3:51PM Lumbar spinal stenosis Sep 21 2011 3:51PM Essential Hypertension Sep 29 2011 3:55PM Hyperlipidemia Sep 29 2011 3:55PM Atrial Fibrillation Sep 29 2011 3:55PM 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 Sep 29 2011 3:55PM Hypothyroidism, Acquired Sep 29 2011 3:55PM Myalgia Sep 29 2011 3:55PM Osteoporosis Sep 29 2011 3:55PM Neuropathy Sep 29 2011 3:55PM Anxiety Disorder Sep 29 2011 3:55PM Chronic Obstructive Pulmonary Disease Sep 29 2011 3:55PM Polymyalgia Rheumatica Sep 29 2011 3:55PM Lumbar spinal stenosis Sep 29 2011 3:55PM Essential Hypertension Dec 16 2011 1:08PM Hyperlipidemia Dec 16 2011 1:08PM Atrial Fibrillation Dec 16 2011 1:08PM 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 Dec 16 2011 1:08PM Hypothyroidism, Acquired Dec 16 2011 1:08PM Myalgia Dec 16 2011 1:08PM Osteoporosis Dec 16 2011 1:08PM Neuropathy Dec 16 2011 1:08PM Anxiety Disorder Dec 16 2011 1:08PM Chronic Obstructive Pulmonary Disease Dec 16 2011 1:08PM Fatigue Dec 16 2011 1:08PM Polymyalgia Rheumatica Dec 16 2011 1:08PM Lumbar spinal stenosis Dec 16 2011 1:08PM Hypothyroidism, Acquired Feb 03 2012 5:01PM Essential Hypertension Feb 17 2012 4:15PM Hyperlipidemia Feb 17 2012 4:15PM Atrial Fibrillation Feb 17 2012 4:15PM 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 Feb 17 2012 4:15PM Hypothyroidism, Acquired Feb 17 2012 4:15PM Myalgia Feb 17 2012 4:15PM Osteoporosis Feb 17 2012 4:15PM Neuropathy Sep 6 2011 4:15PM Anxiety Disorder Sep 6 2011 4:15PM Chronic Obstructive Pulmonary Disease Sep 6 2011 4:15PM Fatigue Sep 6 2011 4:15PM Polymyalgia Rheumatica Sep 6 2011 4:15PM Lumbar spinal stenosis Sep 6 2011 4:15PM Spondylolisthesis , lumbar Apr 19 2012 2:13PM Spinal stenosis, lumbar region Apr 19 2012 2:13PM Polymyalgia Rheumatica Apr 19 2012 2:13PM Polyneuropathy Apr 19 2012 2:13PM Spondylolisthesis , lumbar May 10 2012 2:42PM Spinal stenosis, lumbar region May 10 2012 2:42PM Polymyalgia Rheumatica May 10 2012 2:42PM Polyneuropathy May 10 2012 2:42PM Spondylolisthesis , lumbar Jun 27 2012 11:56AM Spinal stenosis, lumbar region Jun 27 2012 11:56AM Polymyalgia Rheumatica Jun 27 2012 11:56AM Polyneuropathy Jun 27 2012 11:56AM Essential Hypertension Oct 16 2012 1:24PM Hyperlipidemia Oct 16 2012 1:24PM Atrial Fibrillation Oct 16 2012 1:24PM [facility] (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 Oct 16 2012 1:24PM Hypothyroidism, Acquired Oct 16 2012 1:24PM Myalgia Oct 16 2012 1:24PM Osteoporosis Oct 16 2012 1:24PM Neuropathy Oct 16 2012 1:24PM Anxiety Disorder Oct 16 2012 1:24PM Chronic Obstructive Pulmonary Disease Oct 16 2012 1:24PM Fatigue Oct 16 2012 1:24PM Polymyalgia Rheumatica Oct 16 2012 1:24PM Lumbar spinal stenosis Oct 16 2012 1:24PM Actinic Keratosis Nov 02 2012 3:27PM Rash of Skin Nov 02 2012 3:27PM Wrist pain-right Nov 27 2012 11:37AM Fall on same level from slipping, tripping, or stumbling; fall from other slipping, tripping, or stumbling Nov 27 2012 11:37AM Screening Examination for Breast Cancer Jan 23 2013 2:44PM Essential Hypertension May 07 2013 1:08PM Hyperlipidemia May 07 2013 1:08PM Atrial Fibrillation May 07 2013 1:08PM 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 May 07 2013 1:08PM Hypothyroidism, Acquired May 07 2013 1:08PM Osteoporosis May 07 2013 1:08PM Neuropathy May 07 2013 1:08PM Anxiety Disorder May 07 2013 1:08PM Chronic Obstructive Pulmonary Disease May 07 2013 1:08PM Polymyalgia Rheumatica May 07 2013 1:08PM Lumbar spinal stenosis May 07 2013 1:08PM Actinic Keratosis May 08 2013 1:34PM Pain in foot, Bilateral Jun 29 2013 11:33AM Atrial Fibrillation Jun 29 2013 11:33AM Chronic Obstructive Pulmonary Disease Jun 29 2013 11:33AM Hyperlipidemia Jun 29 2013 11:33AM Hypertension Jun 29 2013 11:33AM Osteopenia Jun 29 2013 11:33AM Polymyalgia Rheumatica Jun 29 2013 11:33AM Polymyalgia Rheumatica Sep 18 2013 10:09AM Atrial Fibrillation Sep 18 2013 10:09AM Chronic Obstructive Pulmonary Disease Sep 18 2013 10:09AM Hyperlipidemia Sep 18 2013 10:09AM Osteopenia Sep 18 2013 10:09AM Lumbar Central Spinal Stenosis Sep 18 2013 10:09AM Lower extremity weakness Jan 17 2014 11:33AM Unsteady gait Jan 17 2014 11:33AM Neuropathy Jan 17 2014 11:33AM History of Lumbar spinal stenosis Jan 17 2014 11:33AM Idiopathic peripheral neuropathy Mar 07 2014 1:36PM 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 1:36PM Vitamin B12 deficiency Mar 07 2014 1:36PM Balance disorder Mar 07 2014 1:36PM Sensation Disturbance Mar 07 2014 1:36PM Dysphagia Apr 15 2014 3:49PM Carpal tunnel syndrome Apr 15 2014 3:49PM Polymyalgia Rheumatica Apr 15 2014 3:49PM Atrial Fibrillation Apr 15 2014 3:49PM Hyperlipidemia Apr 15 2014 3:49PM hypothyroid Apr 15 2014 3:49PM Osteopenia Apr 15 2014 3:49PM Vitamin deficiency Apr 15 2014 3:49PM Hypertension Apr 15 2014 3:49PM Carpal tunnel syndrome Feb 2014 3:49PM Dysphagia b 2014 3:49PM Polymyalgia Rheumatica Jul 17 2014 3:49PM Vitamin deficiency Jul 17 2014 3:49PM Anxiety b 2014 3:49PM Atrial Fibrillation Jul 17 2014 3:49PM Chronic Obstructive Pulmonary Disease Jul 17 2014 3:49PM Hyperlipidemia b 2014 3:49PM hypothyroid Feb 2014 3:49PM Osteopenia Jul 17 2014 3:49PM Numbness and Tingling Jul 17 2014 3:49PM Orthostatic hypotension Sep 24 2014 1:21PM Anticoagulant long-term use Oct 04 2014 11:22AM Payers Insurance Name Company Name Plan Name Plan Number Policy Number Policy Group Number Start Date Medicare Part A Medicare Part A [id number] N/A [facility] [id number] N/A [employer] Supplement [id number] Thursday, 2013 [employer] [id number] Thursday, 2013 Medicare Part B Medicare [facility] [place] [id number] Wednesday, [id number] Wednesday, 2008 History of Encounters Visit Date Visit Type Provider 09/24/2014 Office visit Virginia Pollock VACATION PLANNER 07/17/2014 Office visit Collette Gonzales MD 04/15/2014 Office visit Collette Gonzales MD 03/07/2014 Office visit Mariano Fonseca MD 01/17/2014 Office visit Virginia Pollock VACATION PLANNER 09/18/2013 Office visit Collette Gonzales MD 06/29/2013 Office visit Jose Roberto Troy VACATION PLANNER 05/07/2013 Office visit Verónica eSay MD 03/13/2013 [facility] Monterroso MD 01/23/2013 Office visit Virginia Pollock VACATION PLANNER 11/27/2012 Office visit Virginia Pollock VACATION PLANNER 11/02/2012 Office visit Verónica Seay MD 10/16/2012 Office visit Verónica Seay MD 06/27/2012 Office visit Lai Sharp MD 05/10/2012 Office visit Lai Sharp MD 04/19/2012 Office visit Lai Sharp MD 02/17/2012 Office visit Verónica Seay MD 12/16/2011 Office visit Verónica Seay MD 11/05/2011 Hospital [facility] Monterroso MD 09/29/2011 Office visit Verónica Seay MD 09/21/2011 Office visit Verónica Seay MD 09/08/2011 Office visit Verónica Seay MD 08/16/2011 Office visit Verónica Seay MD 08/13/2011 Nurse visit Verónica Seay MD 08/12/2011 Nurse visit Verónica Seay MD 08/11/2011 Office visit Verónica Seay MD 07/08/2011 Office visit Tanya Rodriguez VACATION PLANNER 04/13/2011 Office visit Verónica Seay MD 01/21/2011 Office visit Verónica Seay MD 12/01/2010 Office visit Betty FREEMAN 11/16/2010 Office visit Verónica Seay MD 10/19/2010 Office visit Verónica Seay MD 10/05/2010 Office visit Verónica Seay MD 09/30/2010 Office visit Verónica Seay MD 09/07/2010 Office visit Verónica Seay MD 08/21/2010 Office visit Verónica Seay MD 05/20/2010 Office visit Verónica Seay MD 04/20/2010 Office visit Verónica Seay MD 09/17/2009 Office visit Verónica Seay MD 03/19/2009 Office visit Verónica Seay MD 03/04/2009 Office visit Verónica Seay MD
--- OUTSIDE RECORDS SUMMARY | 2017-09-30 12:17 | XMS REPORT ---
Author Author Eliseo Malave [facility] Address [address] [place], [place] [id number] Care Team Providers Care Anthropology Faculty Member Name Role Phone Eliseo Malave PCP Allergies and Adverse Reactions Name Reaction Notes doxycycline hyclate hives/ vomiting Plan of Treatment Planned Activity Comments Planned Date Planned Time Plan/Goal ASSAY THYROID STIM HORMONE 10/16/2012 12:00 AM SELF-MGMT EDUC & TRAIN 1 PT 10/04/2014 12:00 AM COMPLETE CBC W/AUTO DIFF WBC 11/18/2014 12:00 AM COMPREHEN METABOLIC PANEL 11/18/2014 12:00 AM ASSAY OF TROPONIN QUANT 11/18/2014 12:00 AM ELECTROCARDIOGRAM COMPLETE 11/18/2014 12:00 AM ASSAY OF MAGNESIUM 11/18/2014 12:00 AM CHEST X-RAY 4/> VIEWS 11/18/2014 12:00 AM COMPLETE CBC W/AUTO DIFF WBC 11/18/2014 12:00 AM COMPREHEN METABOLIC PANEL 11/18/2014 12:00 AM CHEST X-RAY 2VW FRONTAL&LATL 11/18/2014 12:00 AM ELECTROCARDIOGRAM COMPLETE 11/18/2014 12:00 AM ELECTROCARDIOGRAM COMPLETE 11/21/2014 12:00 AM Medications Active Name Start Date Estimated Completion Date SIG Comments levothyroxine 75 mcg oral tablet 05/08/2014 TAKE ONE TABLET BY MOUTH DAILY levothyroxine 75 mcg oral tablet 05/08/2014 TAKE ONE TABLET BY MOUTH DAILY pravastatin 40 mg oral tablet 01/23/2015 01/18/2016 TAKE 1 TABLET BY MOUTH EVERY DAY pravastatin 40 mg oral tablet 01/24/2015 TAKE ONE TABLET BY MOUTH ONCE DAILY levothyroxine 75 mcg oral tablet 02/05/2015 TAKE ONE TABLET BY MOUTH ONCE DAILY metoprolol tartrate 25 mg oral tablet take 1 tablet (25 mg) by oral route once daily Stool Softener oral aspirin 325 mg oral tablet take 1 tablet (325 mg) by oral route once daily Tylenol 325 mg oral tablet take 2 tablets (650 mg) by oral route every 6 hours as needed Lyrica 50 mg oral capsule 11/24/2015 02/22/2016 take 1 capsule by oral route 2 times a day for 30 days cetirizine 10 mg oral tablet 01/15/2016 04/14/2016 take 1 tablet by oral route 2 times a day for 30 days Taclonex 0.005-0.064 % topical ointment 01/15/2016 02/14/2016 apply to the affected area(s) by topical route once daily for up to 4 weeks for 30 days Name Start Date Expiration Date SIG Comments Neurontin 300 mg oral capsule 07/29/2010 01/25/2011 take 1 capsule (300 mg) by oral route 3 times per day for 30 days prednisone 1 mg oral tablet 09/30/2011 09/30/2011 take 3 tabs by mouth daily prednisone 5 mg oral tablet 12/16/2011 01/15/2012 TAKE 3 TABLETS BY MOUTH EVERY DAY levothyroxine 75 mcg oral tablet 06/14/2012 09/12/2012 TAKE 1 TABLET BY MOUTH DAILY prednisone 1 mg oral tablet 09/06/2012 10/06/2012 TAKE 3 TABLETS BY MOUTH DAILY hydrocodone-acetaminophen 5-500 mg oral tablet 10/16/2012 01/14/2013 take 1 tablet by oral route 2 times a day as needed for 30 days gabapentin 300 mg oral capsule 03/27/2013 06/25/2013 TAKE 1 CAPSULE BY MOUTH THREE TIMES DAILY amlodipine 5 mg oral tablet take 1 tablet (5 mg) by oral route once daily losartan 25 mg oral tablet 04/15/2014 08/13/2014 take 1 tablet (25 mg) by oral route once daily for 30 days Lasix 40 mg oral tablet 04/15/2014 07/14/2014 take 1 tablet (40 mg) by oral route once daily for 30 days potassium chloride 10 mEq oral capsule, extended release 04/15/2014 07/14/2014 take 1 capsule (10 meq) by oral route once daily for 30 days levothyroxine 75 mcg oral tablet 05/07/2014 11/03/2014 TAKE 1 TABLET BY MOUTH DAILY for 30 days prednisone 1 mg oral tablet 07/17/2014 01/08/2016 take 1tab by oral route once daily prednisone 5 mg oral tablet 07/17/2014 07/12/2015 take 1 tablet (5 mg) by oral route once daily for 90 days warfarin 1 mg oral tablet 10/11/2014 11/10/2014 take 1 tablet by oral route three x per week warfarin 5 mg oral tablet 11/05/2014 12/05/2014 take 1 tablet (5 mg) by oral route once daily for 30 days Zofran (as hydrochloride) 4 mg oral tablet 11/21/2014 12/05/2014 take 1 tab PO PRN q6 hrs. flecainide 100 mg oral tablet 11/21/2014 11/16/2015 take 1 tablet (100 mg) by oral route every 12 hours for 90 days Augmentin 500-125 mg oral tablet 11/26/2014 12/01/2014 take 1 tablet by oral route 2 times a day for 5 days hydrocodone-acetaminophen 5-325 mg oral tablet 12/16/2014 01/15/2015 take 1 tablet by oral route every 6 hours as needed for pain for 30 days Lyrica 75 mg oral capsule 12/19/2014 06/17/2015 take 1 capsule (75 mg) by oral route 2 times per day for 30 days vitamin K oral 2.5 mg oral tablet 12/27/2014 12/28/2014 take 1 tablet by oral route QD for 1 day alprazolam 0.25 mg oral tablet 12/30/2014 03/30/2015 take 1 tablet by oral route 2 times a day for 90 days warfarin 5 mg oral tablet 01/08/2015 take 1 tablet (5 mg) by oral route once daily for 30 days Ultram 50 mg oral tablet 02/04/2015 02/24/2015 take 1 tablet (50 mg) by oral route every 4 hours as needed for 20 days Called this into , spoke with Ant. Cipro 500 mg oral tablet 08/25/2015 09/01/2015 take 1 tablet (500 mg) by oral route every 12 hours for 7 days alprazolam 0.25 mg oral tablet 11/24/2015 12/24/2015 take 1 tablet by oral route 2 times a for 30 days Discontinued Name Start Date Discontinued Date SIG Comments warfarin 5 mg oral tablet 07/17/2014 1/2 tablet on mon and thurs and 1 tablet all other days metoprolol succinate 25 mg oral tablet extended release 24 hr 03/07/2014 take 1/2 tablet BID Replaced/Retired Drug 2.8-2-25 mg oral tablet 09/18/2013 take 1 tablet by oral route 2 times a day loratadine 10 mg oral tablet 09/17/2009 03/07/2014 take 1 tablet (10 mg) by oral route once daily Spiriva with HandiHaler 18 mcg inhalation capsule, w/inhalation device 200904/13/2011 inhale 1 capsule (18 mcg) by inhalation route once daily triamcinolone acetonide 0.1 % topical cream 08/21/2010 04/13/2011 apply a thin film to the affected skin areas by topical route 2 times per day tramadol 50 mg oral tablet 09/30/2010 04/13/2011 take 1 tablet by oral route 3 times a day as needed Fosamax 70 mg oral tablet 09/18/2013 take 1 tablet by oral route doxycycline hyclate 100 mg oral tablet 12/01/2010 12/02/2010 take 1 tablet ( 100 mg) by oral route 2 times per day for 10 days Bactrim DS 800-160 mg oral tablet 12/02/2010 take 1 tablet by oral route 2 times per day for 7 days Bactrim DS 800-160 mg oral tablet 01/15/2011 take 1 tablet by oral route 2 times per day for 10 days Macrobid 100 mg oral capsule 01/15/2011 04/13/2011 take 1 capsule (100 mg) by oral route every 12 hours with food prednisone 5 mg oral tablet 01/18/2011 07/08/2011 take 1 mg/kg by oral route once daily terbinafine HCl 250 mg oral tablet 01/21/2011 04/13/2011 take 1 tablet (250 mg ) by oral route once daily for 12 weeks albuterol sulfate 90 mcg/actuation inhalation HFA aerosol inhaler 08/16/2011 inhale 1 - 2 puffs by inhalation route every 4 hours as needed promethazine-codeine 6.25-10 mg/5 mL oral syrup 08/16/2011 10/16/2012 take 5 milliliters by oral route every 6 hours as needed, not to exceed 30 mL in 24 hours tramadol 50 mg oral tablet 09/21/2011 09/18/2013 take 1 tablet (50 mg) by oral route every 6 hours as needed gabapentin 300 mg oral capsule 02/16/2012 05/10/2012 TAKE 1 CAPSULE BY MOUTH THREE TIMES DAILY tramadol 50 mg oral tablet 03/07/2014 take 1 tablet (50 mg) by oral route every 6 hours as needed prednisone 5 mg oral tablet 02/14/2014 03/07/2014 TAKE 3 TABLETS BY ORAL ROUTE DAILY FOR 30 DAYS prednisone 1 mg oral tablet 02/14/2014 03/07/2014 take 1 tablets by oral route 3 times a day for 30 days Pradaxa 150 mg oral capsule 07/17/2014 11/18/2014 take 1 capsule (150 mg) by oral route 2 times per day for 30 days warfarin 5 mg oral tablet 10/04/2014 Vitamin D2 50,000 unit oral capsule 11/26/2014 10/03/2015 take 1 capsule (50, 000 unit) by oral route once weekly x 12 weeks Probiotic oral 10/03/2015 Prilosec 20 mg oral capsule,delayed release(DR/EC) 10/03/2015 take 1 capsule (20 mg) by oral route once daily before a meal Benadryl 25 mg oral capsule 10/03/2015 take 2 capsules (50 mg) by oral route every 4-6 hours as needed melatonin 10 mg sublingual tablet, sublingual 10/03/2015 place 1 tablet under tongue by translingual route once a day (at bedtime) Vitamin B-12 2,000 mcg oral tablet extended release 10/03/2015 take 1 tablet by oral route daily Vitamin B-1 oral 10/03/2015 Problem List Description Status Onset Anxiety Active Atrial Fibrillation Active Chronic Obstructive Pulmonary Disease Active Hyperlipidemia Active Hypertension Active hypothyroid Active Osteopenia Active Polymyalgia Rheumatica Active 07/03/2013 Numbness and Tingling Active bilateral LE Dysphagia Active 04/15/2014 Carpal Tunnel Syndrome Active 04/15/2014 Vitamin deficiency Active 04/15/2014 Psoriasis Active 01/15/2016 Vital Signs Date Time BP-Sys(mm[Hg] BP-Andree(mm[Hg]) HR(bpm) RR(rpm) Temp WT HT HC BMI BSA BMI Percentile O2 Sat(%) 01/15/2016 4:10:00 PM 132 mmHg 68 mmHg 84 bpm 97.9 F 132 lbs 65 in 21.97 kg/m2 1.66 m2 98 % 11/24/2015 4:21:00 PM 140 mmHg 72 mmHg 79 bpm 16 rpm 97.9 F 129 lbs 65 in 21.4665 kg/m 1.6381 m 100 % 10/03/2015 1:29:00 PM 128 mmHg 80 mmHg 76 bpm 16 rpm 96.6 F 128 lbs 65 in 21.30 kg/m2 1.63 m2 100 % 09/17/2015 11:07:00 AM 130 mmHg 80 mmHg 81 bpm 18 rpm 97.3 F 127 lbs 65 in 21.1337 kg/m 1.6254 m 98 % 02/06/2015 5:21:00 PM 110 mmHg 50 mmHg 64 bpm 20 rpm 96.2 F 160 lbs 65 in 26.63 kg/m2 1.82 m2 96 % 12/30/2014 1:44:00 PM 135 mmHg 60 mmHg 86 bpm 18 rpm 96.7 F 164 lbs 63 in 29.051 kg/m 1.8184 m 95 % 12/26/2014 9:03:00 AM 160 mmHg 80 mmHg 81 bpm 16 rpm 97.8 F 164 lbs 63 in 29.05 kg/m2 1.82 m2 96 % 11/21/2014 11:29:00 AM 134 mmHg 64 mmHg 79 bpm 98.4 F 167.5 lbs 63 in 29.671 kg/m 1.8377 m 96 % 11/18/2014 1:26:00 PM 134 mmHg 64 mmHg 76 bpm 20 rpm 97.5 F 169 lbs 63 in 29.94 kg/m2 1.85 m2 96 % 10/08/2014 4:16:00 PM 140 mmHg 70 mmHg 09/24/2014 1:47:00 PM 133 mmHg 65 mmHg [...] 12:00 AM RBC SED RATE AUTOMATED Reviewed 08/25/2015 12:00 AM URNLS DIP STICK/TABLET RGNT AUTO W/O MICROSCOPY Returned 09/17/2015 12:00 AM COMPLETE CBC W/AUTO DIFF WBC Returned 09/17/2015 12:00 AM COMPREHEN METABOLIC PANEL Returned 09/17/2015 12:00 AM ASSAY OF TROPONIN QUANT Returned 09/17/2015 12:00 AM URNLS DIP STICK/TABLET RGNT AUTO W/O MICROSCOPY Returned 09/17/2015 12:00 AM ASSAY OF FREE THYROXINE Returned 09/17/2015 12:00 AM ASSAY THYROID STIM HORMONE Returned 11/25/2015 12:00 AM DESTRUCT PREMALG LESION Reviewed 08/11/2011 12:00 AM CHEST X-RAY 2VW FRONTAL&LATL Returned 08/11/2011 12:00 AM THER/PROPH/DIAG INJ SC/IM Reviewed 08/11/2011 12:00 AM Rocephin, Per 250MG - 1 Gram Vial Reviewed 08/11/2011 12:00 AM Solu-Medrol 125 Mg Reviewed 08/12/2011 12:00 AM THER/PROPH/DIAG INJ SC/IM Reviewed 08/12/2011 12:00 AM Rocephin, Per 250MG - 1 Gram Vial Reviewed 08/13/2011 12:00 AM THER/PROPH/DIAG INJ SC/IM Reviewed 08/13/2011 12:00 AM Rocephin, Per 250MG - 1 Gram Vial Reviewed 08/16/2011 12:00 AM CHEST X-RAY 2VW [...] 12:00 AM X-RAY EXAM OF HAND Returned 11/27/2012 12:00 AM Wrist Support Reviewed 01/23/2013 12:00 AM MAMMOGRAM SCREENING Returned 05/07/2013 [...] 12:00 AM X-RAY EXAM OF HIPS Reviewed 10/04/2014 12:00 AM PROTHROMBIN TIME Returned 10/08/2014 12:00 AM Blood Pressure Check-no charge Reviewed 10/18/2014 12:00 AM PROTHROMBIN TIME Returned 11/21/2014 12:00 AM COMPLETE CBC W/AUTO DIFF WBC Returned 11/21/2014 12:00 AM COMPREHEN METABOLIC PANEL Returned 11/21/2014 12:00 AM VITAMIN B-12 Returned 11/21/2014 12:00 AM URINALYSIS AUTO W/SCOPE Returned 11/21/2014 12:00 AM ASSAY THYROID STIM HORMONE Returned 11/21/2014 12:00 AM VIT D 1 25-DIHYDROXY Returned 11/21/2014 12:00 AM CHEST X-RAY 2VW FRONTAL&LATL Returned 11/26/2014 12:00 AM RADEX RIBS UNILATERAL 2 VIEWS Returned 11/26/2014 12:00 AM URINALYSIS AUTO W/SCOPE Returned 12/26/2014 12:00 AM COMPLETE CBC W/AUTO DIFF WBC Returned 12/26/2014 12:00 AM COMPREHEN METABOLIC PANEL Returned 12/26/2014 12:00 AM US EXAM ABDOM COMPLETE Returned 12/26/2014 12:00 AM ECHO EXAM OF ABDOMEN Returned 12/26/2014 12:00 AM X-RAY EXAM SERIES ABDOMEN Returned 01/15/2011 12:00 AM URINALYSIS AUTO W/SCOPE Reviewed [...] 1.720 uIU/mLVITAMIN B12 321.0 pg/mLFOLATE 17.40 ng/mL 10/08/2014 3:56 PM PROTIME POCT 17.80 secsINR POCT 1.5 10/16/2014 4:35 PM PROTIME POCT 70.50 secsINR POCT 5.9 10/19/2014 12:29 PM PROTIME 25.10 secsINR 2.4 10/25/2014 3:55 PM PROTIME 29.0 secsINR 2.8 11/18/2014 2:15 PM PROTIME POCT 62.80 secsINR POCT 5.2 11/21/2014 1:35 PM WBC 7.0 RBC 3.91 HGB 11.90 g/dLHCT 37.70 %MCV 96.0 fLMCH 30.40 pgMCHC 31.60 g/dLRDW CV 14.30 %MPV 11.10 fLPLT 212 %NEUT 74.40 %%LYMP 19.70 %%MONO 5.20 %%EOS 0.30 %%BASO 0.40 %#NEUT 5.17 #LYMP 1.37 #MONO 0.36 #EOS 0.02 #BASO 0.03 GLUCOSE 109.0 mg/dLSODIUM 142.0 mmol/LPOTASSIUM 4.0 mmol/ LCHLORIDE 105.0 mmol/LCO2 25.0 mmol/LBUN 24.0 mg/dLCREATININE 1.10 mg/dLSGOT/ AST 25.0 IU/LSGPT/ALT 14.0 IU/LALK PHOS 88.0 IU/LTOTAL PROTEIN 6.90 g/dLALBUMIN 4.10 g/dLTOTAL BILI 0.80 mg/dLCALCIUM 9.0 mg/dLeGFR 47 TSH 0.940 uIU/mLVITAMIN B12 264.0 pg/mLVITAMIN D 15.30 ng/mL 11/21/2014 2:15 PM COLOR YELLOW APPEARANCE CLEAR SPEC GRAV 1.020 pH 7.0 PROTEIN NEGATIVE GLUCOSE NEGATIVE KETONE NEGATIVE BILIRUBIN NEGATIVE BLOOD NEGATIVE NITRITE NEGATIVE LEUK SCREEN TRACE CASTS/LPF NEGATIVE CRYSTALS NEGATIVE MUCOUS THRDS NEGATIVE BACTERIA 2++ EPITH CELLS FEW SQUAMOUS TRICHOMONAS NEGATIVE YEAST NEGATIVE 12/06/2014 11:05 AM COLOR YELLOW APPEARANCE CLEAR SPEC GRAV 1.025 pH 5.5 PROTEIN NEGATIVE GLUCOSE NEGATIVE KETONE NEGATIVE BILIRUBIN NEGATIVE BLOOD NEGATIVE NITRITE NEGATIVE LEUK SCREEN NEGATIVE 12/06/2014 11:10 AM PROTIME POCT 37.60 secsINR POCT 3.1 12/26/2014 9:52 AM PROTIME POCT 94.0 secsINR POCT 7.8 12/26/2014 10:36 AM WBC 7.1 RBC 4.24 HGB 12.90 g/dLHCT 40.40 %MCV 95.0 fLMCH 30.40 pgMCHC 31.90 g/dLRDW CV 14.40 %MPV 11.80 fLPLT 195 %NEUT 55.70 %%LYMP 29.70 %%MONO 10.50 %%EOS 2.80 %%BASO 1.30 %#NEUT 3.95 #LYMP 2.10 #MONO 0.74 # EOS 0.20 #BASO 0.09 GLUCOSE 109.0 mg/dLSODIUM 143.0 mmol/LPOTASSIUM 4.0 mmol/ LCHLORIDE 107.0 mmol/LCO2 26.0 mmol/LBUN 18.0 mg/dLCREATININE 1.0 mg/dLSGOT/AST 23.0 IU/LSGPT/ALT 9.0 IU/LALK PHOS 115.0 IU/LTOTAL PROTEIN 7.10 g/dLALBUMIN 4.20 g/dLTOTAL BILI 0.60 mg/dLCALCIUM 9.60 mg/dLeGFR 52 12/26/2014 11:15 AM WBC 7.3 RBC 4.02 HGB 12.40 g/dLHCT 38.70 %MCV 96.0 fLMCH 30.80 pgMCHC 32.0 g/dLRDW CV 14.40 %MPV 11.40 fLPLT 192 %NEUT 57.60 %%LYMP 28.40 %%MONO 10.30 %%EOS 2.90 %%BASO 0.80 %#NEUT 4.17 #LYMP 2.06 #MONO 0.75 # EOS 0.21 #BASO 0.06 GLUCOSE 107.0 mg/dLSODIUM 142.0 mmol/LPOTASSIUM 4.10 mmol/ LCHLORIDE 108.0 mmol/LCO2 23.0 mmol/LBUN 18.0 mg/dLCREATININE 0.90 mg/dLSGOT/ AST 23.0 IU/LSGPT/ALT 8.0 IU/LALK PHOS 110.0 IU/LTOTAL PROTEIN 6.90 g/dLALBUMIN 4.10 g/dLTOTAL BILI 0.70 mg/dLCALCIUM 9.50 mg/dLeGFR 59 12/30/2014 1:24 PM PROTIME POCT 18.10 secsINR POCT 1.5 08/25/2015 2:38 PM COLOR YELLOW APPEARANCE CLEAR SPEC GRAV >=1.030 pH 5.5 PROTEIN 30 GLUCOSE NEGATIVE mg/dLKETONE NEGATIVE BILIRUBIN NEGATIVE BLOOD NEGATIVE NITRITE NEGATIVE LEUK SCREEN SMALL CASTS/LPF 1+ HYALINE /LPFCRYSTALS NEGATIVE MUCOUS THRDS FEW BACTERIA FEW EPITH CELLS 1+ SQUAMOUS /HPFTRICHOMONAS NEGATIVE YEAST NEGATIVE 09/17/2015 11:55 AM WBC 6.5 RBC 3.77 HGB 11.50 g/dLHCT 36.50 %MCV 97.0 fLMCH 30.50 pgMCHC 31.50 g/dLRDW CV 13.70 %MPV 11.50 fLPLT 205 %NEUT 50.90 %%LYMP 33.80 %%MONO 10.10 %%EOS 2.80 %%BASO 1.60 %#NEUT 3.29 #LYMP 2.18 #MONO 0.65 # EOS 0.18 #BASO 0.10 COLOR YELLOW APPEARANCE HAZY SPEC GRAV >=1.030 pH 5.0 PROTEIN NEGATIVE GLUCOSE NEGATIVE mg/dLKETONE TRACE BILIRUBIN NEGATIVE BLOOD NEGATIVE NITRITE NEGATIVE LEUK SCREEN TRACE CASTS/LPF 1+ HYALINE /LPFCRYSTALS NEGATIVE MUCOUS THRDS NEGATIVE BACTERIA FEW EPITH CELLS 1+ SQUAMOUS / HPFTRICHOMONAS NEGATIVE YEAST NEGATIVE TSH 0.410 uIU/mLGLUCOSE 102.0 mg/ dLSODIUM 143.0 mmol/LPOTASSIUM 4.30 mmol/LCHLORIDE 107.0 mmol/LCO2 25.0 mmol/ LBUN 32.0 mg/dLCREATININE 1.40 mg/dLSGOT/AST 25.0 IU/LSGPT/ALT 10.0 IU/LALK PHOS 68.0 IU/LTOTAL PROTEIN 7.0 g/dLALBUMIN 4.40 g/dLTOTAL BILI 0.60 mg/ dLCALCIUM 10.0 mg/dLeGFR 36 TROPONIN-I AD <0.04 ng/mL History Of Immunizations Name Date Admin [...] bilateral LE Sawyer thyroiditis Dysphagia 04/15/2014 Carpal Tunnel Syndrome 04/15/2014 Vitamin deficiency 04/15/2014 Essential Hypertension Apr 20 2010 10:48AM Hyperlipidemia Apr 20 2010 10:48AM Atrial Fibrillation Apr 20 2010 10:48AM Nursing Home (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 Apr 20 2010 10:48AM Hypothyroidism, Acquired Apr 20 2010 10:48AM Anxiety Disorder Apr 20 2010 10:48AM Chronic Obstructive Pulmonary Disease Apr 20 2010 10:48AM Essential Hypertension May 20 2010 1:10PM Hyperlipidemia May 20 2010 1:10PM Atrial Fibrillation May 20 2010 1:10PM Plant 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 May 20 2010 1:10PM Hypothyroidism, Acquired May 20 2010 1:10PM Anxiety Disorder May 20 2010 1:10PM Chronic Obstructive Pulmonary Disease May 20 2010 1:10PM Neuropathy May 20 2010 1:10PM Essential Hypertension Aug 21 2010 9:25AM Hyperlipidemia Aug 21 2010 9:25AM Atrial Fibrillation Aug 21 2010 9:25AM Plant 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 Aug 21 2010 9:25AM Hypothyroidism, Acquired Aug 21 2010 9:25AM Neuropathy Aug 21 2010 9:25AM Anxiety Disorder Aug 21 2010 9:25AM Chronic Obstructive Pulmonary Disease Aug 21 2010 9:25AM Essential Hypertension Sep 07 2010 4:10PM Hyperlipidemia Sep 07 2010 4:10PM Atrial Fibrillation Sep 07 2010 4:10PM Nursing Home (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 Sep 07 2010 4:10PM Hypothyroidism, Acquired Sep 07 2010 4:10PM Neuropathy Sep 07 2010 4:10PM Anxiety Disorder Sep 07 2010 4:10PM Chronic Obstructive Pulmonary Disease Sep 07 2010 4:10PM Diarrhea Sep 07 2010 4:10PM Psoriasis 01/15/2016 Essential Hypertension Sep 30 2010 10:07AM Hyperlipidemia Sep 30 2010 10:07AM Atrial Fibrillation Sep 30 2010 10:07AM Plant 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 Sep 30 2010 [...] 2:08PM Atrial Fibrillation Oct 05 2010 2:08PM Nursing Home (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 Oct 05 2010 [...] 2:12PM Atrial Fibrillation Oct 19 2010 2:12PM Plant 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 Oct 19 2010 [...] 2:58PM Atrial Fibrillation Nov 16 2010 2:58PM Nursing Home (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 Nov 16 2010 [...] 2:04PM Atrial Fibrillation Jan 21 2011 2:04PM Plant 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 Jan 21 2011 [...] 10:00AM Atrial Fibrillation Apr 13 2011 10:00AM Nursing Home (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 Apr 13 2011 [...] 10:33AM Atrial Fibrillation Aug 11 2011 10:33AM Nursing Home (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 Aug 11 2011 [...] 11:10AM Atrial Fibrillation Aug 16 2011 11:10AM Plant 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 Aug 16 2011 [...] 1:51PM Atrial Fibrillation Sep 08 2011 1:51PM Nursing Home (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 Sep 08 2011 [...] 3:51PM Atrial Fibrillation Sep 21 2011 3:51PM Nursing Home (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 Sep 21 2011 [...] 3:55PM Atrial Fibrillation Sep 29 2011 3:55PM Nursing Home (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 Sep 29 2011 [...] 1:08PM Atrial Fibrillation Dec 16 2011 1:08PM Nursing Home (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 Dec 16 2011 [...] Acquired Feb 03 2012 5:01PM Essential Hypertension Sep 6 2011 4:15PM Hyperlipidemia Sep 6 2011 4:15PM Atrial Fibrillation Sep 6 2011 4:15PM Plant 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 Sep 6 2011 4:15PM Hypothyroidism, Acquired Sep 6 2011 4:15PM Myalgia Sep 6 2011 4:15PM Osteoporosis Sep 6 2011 4:15PM Neuropathy Sep 6 2011 4:15PM Anxiety [...] 1:24PM Atrial Fibrillation Oct 16 2012 1:24PM Nursing Home (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 Oct 16 2012 [...] 1:08PM Atrial Fibrillation May 07 2013 1:08PM Nursing Home (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 May 07 2013 [...] 3:49PM Dysphagia b 2014 3:49PM Polymyalgia Rheumatica Feb 2014 3:49PM Vitamin deficiency Feb 2014 3:49PM Anxiety Feb 2014 3:49PM Atrial Fibrillation Feb 2014 3:49PM Chronic Obstructive Pulmonary Disease Feb 4 2014 3:49PM Hyperlipidemia b 2014 3:49PM hypothyroid Feb 2014 3:49PM Osteopenia Feb 2014 3:49PM Numbness and Tingling Feb 2014 3:49PM Orthostatic hypotension Sep 24 2014 1:21PM Anticoagulant long-term use Oct 04 2014 11:22AM Hypertension, Benign Essential Oct 08 2014 4:16PM Anticoagulation monitoring, INR range 2-3 Oct 18 2014 8:31AM Chest pain Nov 18 2014 2:44PM Indigestion Nov 18 2014 2:44PM Pre-op examination Nov 18 2014 1:28PM Preop exam for internal medicine Nov 21 2014 11:33AM Fatigue Nov 21 2014 11:33AM Carpal tunnel syndrome Nov 21 2014 11:33AM Dysphagia Nov 21 2014 11:33AM Polymyalgia Rheumatica Nov 21 2014 11:33AM Vitamin deficiency Nov 21 2014 11:33AM Anxiety Nov 21 2014 11:33AM Atrial Fibrillation Nov 21 2014 11:33AM Chronic Obstructive Pulmonary Disease Nov 21 2014 11:33AM Hyperlipidemia Nov 21 2014 11:33AM Hypertension Nov 21 2014 11:33AM hypothyroid Nov 21 2014 11:33AM Osteopenia Nov 21 2014 11:33AM Numbness and Tingling Nov 21 2014 11:33AM Memory impairment of gradual onset Nov 21 2014 11:33AM Fall Nov 26 2014 10:57AM Rib pain on right side Nov 26 2014 10:57AM UTI (urinary tract infection) Nov 26 2014 11:23AM RUQ pain Dec 26 2014 9:05AM RUQ abdominal mass Dec 26 2014 10:23AM RUQ abdominal pain Dec 26 2014 10:28AM RUQ abdominal mass Dec 26 2014 10:28AM Elevated INR (international normalized ratio) Dec 26 2014 9:05AM Abdominal hematoma Dec 26 2014 9:05AM Hematoma of abdominal wall Dec 30 2014 1:46PM Polymyalgia Rheumatica Dec 30 2014 1:46PM Anxiety Dec 30 2014 1:46PM Carpal Tunnel Syndrome Feb 06 2015 5:34PM Dysphagia Feb 06 2015 5:34PM Vitamin deficiency Feb 06 2015 5:34PM Anxiety Feb 06 2015 5:34PM Atrial Fibrillation Feb 06 2015 5:34PM Chronic Obstructive Pulmonary Disease Feb 06 2015 5:34PM Hyperlipidemia Feb 06 2015 5:34PM Hypertension Feb 06 2015 5:34PM hypothyroid Feb 06 2015 5:34PM Osteopenia Feb 06 2015 5:34PM Lumbar canal stenosis Feb 06 2015 5:34PM UTI (urinary tract infection) Feb 06 2015 5:34PM Dysuria Aug 25 2015 11:41AM Dysuria Sep 17 2015 11:10AM Other chest pain Sep 17 2015 11:10AM Atrial Fibrillation Sep 17 2015 11:10AM Hypertension Sep 17 2015 11:10AM Essential hypertension Oct 03 2015 1:31PM Pure hypercholesterolemia Oct 03 2015 1:31PM Acquired hypothyroidism Oct 03 2015 1:31PM Slow transit constipation Oct 03 2015 1:31PM Idiopathic peripheral neuropathy Oct 03 2015 1:31PM Peripheral axonal neuropathy Nov 24 2015 4:23PM Anxiety Nov 24 2015 4:23PM Dry mouth Nov 24 2015 4:23PM Achrochordon Nov 24 2015 4:23PM Benign Neoplasm Of Skin Of Face Nov 25 2015 10:26PM Mild Chronic Psoriasis Jan 15 2016 4:13PM Chronic Urticaria Jan 15 2016 4:13PM Neuropathy Jan 15 2016 4:13PM Payers Insurance Name Company Name Plan Name Plan Number Policy Number Policy Group Number Start Date Medicare Part A Medicare C [id number] N/A [employer] [id number] Tuesday, 2015 Medicare Part A Medicare - Lab/Xray [id number] N/A Medicare Part B Medicare Of [place] [id number] Wednesday, November 11, 1992 [facility] [id number] Wednesday, September 03, 2008 Medicare Part A Medicare Part A [id number] N/A [employer] [id number] Thursday, June 13, 2013 [employer] [id number] Thursday, June 13, 2013 [facility] [id number] N/A History of Encounters Visit Date Visit Type Provider 01/15/[address] Eliseo Malave MD 11/24/[address] Eliseo Malave MD 10/03/[address] Eliseo Malave MD 09/17/2015 Office visit Jose Roberto Troy OUTREACH CLINICIAN 02/06/2015 Hospital Giana Mendes MD 02/06/2015 Office visit Collette Gonzales MD 12/30/2014 Office visit Jose Roberto Troy OUTREACH CLINICIAN 12/26/2014 Office visit Jose Roberto Troy OUTREACH CLINICIAN 11/21/2014 Hospital Shawanda Monterroso MD 11/21/2014 Office visit Collette Gonzales MD 11/18/2014 Office visit Virginia Pollock OUTREACH CLINICIAN 10/08/2014 Nurse visit Jose Roberto Troy OUTREACH CLINICIAN 09/24/2014 Office visit Virginia Pollock OUTREACH CLINICIAN 07/17/2014 Office visit Collette Gonzales MD 04/15/2014 Office visit Collette Gonzales MD 03/07/2014 Office visit Mariano Fonseca MD 01/17/2014 Office visit Virginia Pollock OUTREACH CLINICIAN 09/18/2013 Office visit Collette Gonzales MD 06/29/2013 Office visit Jose Roberto Troy OUTREACH CLINICIAN 05/07/2013 Office visit Verónica Seay MD 03/13/2013 [facility] Shawanda Monterroso MD 01/23/2013 Office visit Virginia Pollock OUTREACH CLINICIAN 11/27/2012 Office visit Virginia Pollock OUTREACH CLINICIAN 11/02/2012 Office visit Verónica Seay MD 10/16/2012 [...] Seay MD 07/08/2011 Office visit Tanya Rodriguez OUTREACH CLINICIAN 04/13/2011 Office visit Verónica Seay MD 01/21/2011 [...]
--- OUTSIDE RECORDS SUMMARY | 2017-09-30 12:19 | XMS REPORT ---
Author Author Kelvin Desouza Organization [facility] Address [address] [place], [place] [id number] Care Team Providers Care Farm Instructor Name Role Phone Kelvin Desouza PCP Eliseo Malave PreferredProvider Allergies and Adverse Reactions Name Reaction Notes doxycycline hyclate hives/ vomiting Plan of Treatment Planned Activity Comments Planned Date Planned Time Plan/Goal INR (international normalized ratio) monitoring education 10/04/2014 12:00 AM MRI LUMBAR SPINE W/O CONTRAST 08/23/2017 12:00 AM Wrist Complete Min 3Views - MOB 08/23/2017 12:00 AM Wrist Complete Min 3Views - MOB 08/23/2017 12:00 AM Thyroid stimulating hormone (TSH) 10/16/2012 12:00 AM CBC with Auto 11/18/2014 12:00 AM CMP (comprehensive metabolic panel) 11/18/2014 12:00 AM Troponin I blood 11/18/2014 12:00 AM EKG (12-lead electrocardiogram) 11/18/2014 12:00 AM Magnesium blood 11/18/2014 12:00 AM Chest x-ray, complete, four or more views 11/18/2014 12:00 AM CBC With Auto Differential 11/18/2014 12:00 AM CMP (comprehensive metabolic panel) 11/18/2014 12:00 AM CXR (PA/LAT) 11/18/2014 12:00 AM EKG (12-lead electrocardiogram) 11/18/2014 12:00 AM EKG 11/21/2014 12:00 AM Medications Active Name Start Date Estimated Completion Date SIG Comments levothyroxine 75 mcg oral tablet 05/08/2014 TAKE ONE TABLET BY MOUTH DAILY levothyroxine 75 mcg oral tablet 05/08/2014 TAKE ONE TABLET BY MOUTH DAILY levothyroxine 75 mcg oral tablet 02/05/2015 TAKE ONE TABLET BY MOUTH ONCE DAILY aspirin 325 mg oral tablet take 1 tablet (325 mg) by oral route once daily Tylenol 325 mg oral tablet take 2 tablets (650 mg) by oral route every 6 hours as needed Vitamin D3 2,000 unit oral capsule take 1 capsule by oral route daily metoprolol tartrate 25 mg oral tablet 09/14/2016 09/09/2017 take 1 tablet (25 mg) by oral route 2 times per day for 90 days levothyroxine 75 mcg oral tablet 09/14/2016 09/09/2017 TAKE 1 TABLET BY MOUTH DAILY for 90 days pravastatin 40 mg oral tablet 09/14/2016 TAKE ONE TABLET BY MOUTH ONCE DAILY meloxicam 7.5 mg oral tablet 05/11/2017 take 1 tablet (7.5 mg) by oral route once daily for 90 days Pennsaid 2 % topical solution in packet 05/31/2017 apply 1 packet (40 mg) to the affected knee(s) by topical route 2 times per day for 30 days Name Start Date Expiration [...] oral route once daily for 30 days prednisone 1 mg oral [...] oral route once daily for 30 days pravastatin 40 mg oral tablet 01/23/2015 01/18/2016 TAKE 1 TABLET BY MOUTH EVERY DAY Ultram 50 mg oral tablet 02/04/2015 02/24/2015 take 1 tablet (50 mg) by oral route every 4 hours as needed for 20 days Called this into , spoke with Ant. Cipro 500 mg oral tablet 08/25/2015 09/01/2015 take 1 tablet (500 mg) by oral route every 12 hours for 7 days Stool Softener oral Lyrica 50 mg oral capsule 11/24/2015 02/22/2016 [...] up to 4 weeks for 30 days alprazolam 0.25 mg oral tablet 04/07/2016 05/07/2016 take 1 tablet by oral route 2 times a for 30 days Nascimento Diaper Rash Cream 04/09/2016 (Nystatin/Zinc Oxide/Aquaphor/Antacid/ Cholestyramine) Apply to affected areas as directed vitamin F26-ljsth acid 500-400 mcg oral tablet take 1 tablet by oral route daily amoxicillin 500 mg oral capsule 06/09/2016 06/19/2016 take 2 capsules by oral route every 12 hours for 10 days triamcinolone acetonide 0.1 % topical ointment 12/10/2016 12/24/2016 apply a thin layer to the affected area(s) by topical route 2 times per day for 14 days nystatin 100,000 unit/gram topical ointment 01/11/2017 01/18/2017 apply to the affected area(s) by topical route 3 times per day for 7 days alprazolam 0.25 mg oral tablet 05/11/2017 08/09/2017 take 1 tablet by oral route 2 times a day as needed for 30 days Discontinued Name Start Date [...] Hypertension Active hypothyroid Active Osteopenia Active Polymyalgia rheumatica Active 07/03/2013 Numbness and Tingling Active bilateral LE Dysphagia Active 04/15/2014 Carpal Tunnel Syndrome Active 04/15/2014 Vitamin deficiency Active 04/15/2014 Psoriasis Active 01/15/2016 Actinic keratosis Active 05/03/2016 Comedone Active 05/03/2016 Actinic keratosis Active 05/04/2016 Vital Signs Date Time BP-Sys(mm[Hg] BP-Andree(mm[Hg]) HR(bpm) RR(rpm) Temp WT HT HC BMI BSA BMI Percentile O2 Sat(%) 08/23/2017 1:30:00 PM 168 mmHg 68 mmHg 76 bpm 18 rpm 97.2 F 143.25 lbs 63 in 25.38 kg/m2 1.70 m2 98 % 08/09/2017 11:36:00 AM 160 mmHg 71 mmHg 73 bpm 20 rpm 97.6 F 144.187 lbs 63 in 25.5414 kg/m 1.705 m 96 % 07/05/2017 11:09:00 AM 142 mmHg 62 mmHg 76 bpm 18 rpm 97.3 F 144.375 lbs 63 in 25.57 kg/m2 1.71 m2 96 % 01/11/2017 10:20:00 AM 132 mmHg 76 mmHg 77 bpm 18 rpm 96.3 F 146 lbs 63 in 25.8625 kg/m 1.7157 m 97 % 12/09/2016 1:33:00 PM 118 mmHg 70 mmHg 76 bpm 20 rpm 97.6 F 142.375 lbs 63 in 25.22 kg/m2 1.69 m2 95 % 06/09/2016 6:00:00 PM 132 mmHg 74 mmHg 72 bpm 18 rpm 97 F 141.375 lbs 63 in 25.0432 kg/m 1.6883 m 98 % 04/30/2016 1:51:00 PM 130 mmHg 64 mmHg 74 bpm 20 rpm 96.6 F 137 lbs 63 in 24.27 kg/m2 1.66 m2 04/09/2016 10:01:00 AM 140 mmHg 78 mmHg 77 bpm 20 rpm 97 F 136 lbs 65 in 22.6314 kg/m 1.682 m 98 % 01/15/2016 4:10:00 PM 132 mmHg 68 mmHg [...] rpm 97.1 F 172 lbs 63 in 30.47 kg/m2 1.86 m2 95 % 04/15/2014 3:43:00 PM 138 mmHg 68 mmHg 86 bpm 16 rpm 97.9 F 173 lbs 63 in 30.6453 kg/m 1.8676 m 96 % 03/07/2014 1:13:00 PM 134 mmHg 70 mmHg 62 bpm 16 rpm 97.6 F 173.375 lbs 64 in 29.76 kg/m2 1.88 m2 01/17/2014 11:30:00 AM 160 mmHg 72 mmHg 72 bpm 20 rpm 97.4 F 168.8 lbs 65 in 28.0895 kg/m 1.8739 m 96 % 09/18/2013 9:56:00 AM 155 mmHg 78 mmHg 76 bpm 18 rpm 97.2 F 177 lbs 65 in 29.45 kg/m2 1.92 m2 93 % 06/29/2013 11:31:00 AM 130 mmHg 70 mmHg 65 bpm 18 rpm 98.3 F 174 lbs 96 % 05/07/2013 1:03:00 PM 138 mmHg 72 mmHg 74 bpm 16 rpm 96.5 F 170 lbs 93 % 01/23/2013 2:39:00 PM 150 mmHg 78 mmHg 73 bpm 20 rpm 97.8 F 166.4 lbs 65 in 27.6901 kg/m 1.8605 m 96 % 11/27/2012 11:26:00 AM 152 mmHg 68 mmHg 70 bpm 20 rpm 97.5 F 171.6 lbs 65 in 28.56 kg/m2 1.89 m2 96 % 11/02/2012 3:24:00 PM 132 mmHg 68 mmHg 72 bpm 18 rpm 97 F 167.5 lbs 65 in 27.8732 kg/m 1.8667 m 10/16/2012 1:20:00 PM 130 mmHg 70 mmHg 75 bpm 16 rpm 97.5 F 170 lbs 95 % 06/27/2012 11:54:00 AM 110 mmHg 64 mmHg 72 bpm 16 rpm 96.4 F 165 lbs 65 in 27.4572 kg/m 1.8527 m 05/10/2012 2:39:00 PM 134 mmHg 64 mmHg 72 bpm 16 rpm 97.6 F 160 lbs 65 in 26.63 kg/m2 1.82 m2 04/19/2012 1:57:00 PM 112 mmHg 58 mmHg 88 bpm 18 rpm 97.4 F 165 lbs 65 in 27.4572 kg/m 1.8527 m 02/17/2012 4:11:00 PM 138 mmHg 68 mmHg [...] rpm 99.1 F 171.25 lbs 65 in 28.50 kg/m2 1.89 m2 91 % 07/08/2011 1:32:00 PM 138 mmHg 74 mmHg 68 bpm 18 rpm 96.6 F 176.5 lbs 65 in 29.3708 kg/m 1.9161 m 04/13/2011 10:01:00 AM 138 mmHg 70 mmHg [...] rpm 96.3 F 169 lbs 65 in 28.1228 kg/m 1.875 m Social History Name Description Comments Alcohol Current some day Tobacco Never smoker History of Procedures Date Ordered Description Order Status 04/13/2011 12:00 AM COMPREHEN METABOLIC PANEL Reviewed 04/13/2011 12:00 AM LIPID PANEL Reviewed 04/13/2011 12:00 AM ASSAY THYROID STIM HORMONE Reviewed 04/13/2011 12:00 AM COMPLETE CBC W/AUTO DIFF WBC Reviewed 04/13/2011 12:00 AM RBC SED RATE AUTOMATED Reviewed 08/25/2015 12:00 AM URNLS DIP STICK/TABLET RGNT AUTO W/O MICROSCOPY Reviewed 09/17/2015 12:00 AM COMPLETE CBC W/AUTO DIFF WBC Reviewed 09/17/2015 12:00 AM COMPREHEN METABOLIC PANEL Reviewed 09/17/2015 12:00 AM ASSAY OF TROPONIN QUANT Reviewed 09/17/2015 12:00 AM URNLS DIP STICK/TABLET RGNT AUTO W/O MICROSCOPY Reviewed 09/17/2015 12:00 AM ASSAY OF FREE THYROXINE Reviewed 09/17/2015 12:00 AM ASSAY THYROID STIM HORMONE Reviewed 11/25/2015 12:00 AM DESTRUCT PREMALG LESION Reviewed 08/11/2011 12:00 AM CHEST X-RAY 2VW FRONTAL&LATL Reviewed 08/11/2011 12:00 AM THER/PROPH/DIAG INJ SC/IM Reviewed [...] 08/16/2011 12:00 AM CHEST X-RAY 2VW FRONTAL&LATL Reviewed 05/03/2016 12:00 AM DESTRUCT PREMALG LESION Reviewed 05/03/2016 12:00 AM DESTRUCT PREMALG LES 2-14 Reviewed 10/04/2014 12:00 AM PROTHROMBIN TIME Reviewed 12/16/2011 12:00 AM COMPREHEN METABOLIC PANEL Reviewed 12/16/2011 12:00 AM ASSAY THYROID STIM HORMONE Reviewed 12/16/2011 12:00 AM COMPLETE CBC W/AUTO DIFF WBC Reviewed 12/16/2011 12:00 AM VITAMIN B-12 Reviewed 12/16/2011 12:00 AM ASSAY OF MAGNESIUM Reviewed 12/16/2011 12:00 AM ASSAY OF VITAMIN B-6 Reviewed 02/03/2012 12:00 AM ASSAY THYROID STIM HORMONE Reviewed 12/09/2016 12:00 AM ANTINUCLEAR ANTIBODIES ROBERTO CARLOS Reviewed 12/09/2016 12:00 AM RHEUMATOID FACTOR QUANT Reviewed 12/09/2016 12:00 AM RBC SED RATE AUTOMATED Reviewed 12/09/2016 12:00 AM CCP ANTIBODY Reviewed 12/09/2016 12:00 AM ASSAY THYROID STIM HORMONE Reviewed 12/09/2016 12:00 AM COMPREHEN METABOLIC PANEL Reviewed 10/16/2012 12:00 AM COMPREHEN METABOLIC PANEL Reviewed 10/16/2012 12:00 AM LIPID PANEL Reviewed 10/16/2012 12:00 AM COMPLETE CBC W/AUTO DIFF WBC Reviewed 11/27/2012 12:00 AM X-RAY EXAM OF WRIST Reviewed 11/27/2012 12:00 AM X-RAY EXAM OF HAND Reviewed 11/27/2012 12:00 AM Wrist Support Reviewed 01/23/2013 12:00 AM MAMMOGRAM SCREENING Reviewed 05/07/2013 12:00 AM COMPREHEN METABOLIC PANEL Reviewed 05/07/2013 12:00 AM ASSAY THYROID STIM HORMONE Reviewed 05/07/2013 12:00 AM COMPLETE CBC W/AUTO DIFF WBC Reviewed 09/18/2013 12:00 AM COMPLETE CBC W/AUTO DIFF WBC Reviewed 09/18/2013 12:00 AM COMPREHEN METABOLIC PANEL Reviewed 09/18/2013 12:00 AM LIPID PANEL Reviewed 02/25/2010 12:00 AM COMPLETE CBC W/AUTO DIFF WBC Reviewed 02/25/2010 12:00 AM LIPID PANEL Reviewed 02/25/2010 12:00 AM COMPREHEN METABOLIC PANEL Reviewed 02/25/2010 12:00 AM ASSAY THYROID STIM HORMONE Reviewed 02/25/2010 12:00 AM PROTHROMBIN TIME Reviewed 01/17/2014 12:00 AM MRI LUMBAR SPINE W/O DYE Reviewed 04/15/2014 12:00 AM COMPLETE CBC W/AUTO DIFF WBC Reviewed 04/15/2014 12:00 AM COMPREHEN METABOLIC PANEL Reviewed 04/15/2014 12:00 AM LIPID PANEL Reviewed 04/15/2014 12:00 AM VITAMIN B-12 Reviewed 04/15/2014 12:00 AM ASSAY THYROID STIM HORMONE Reviewed 04/15/2014 12:00 AM ASSAY OF FOLIC ACID SERUM Reviewed 04/15/2014 12:00 AM VIT D 1 25-DIHYDROXY Reviewed 09/30/2010 12:00 AM ASSAY OF CK (CPK) [...] 12:00 AM X-RAY EXAM OF HIPS Reviewed 10/08/2014 12:00 AM Blood Pressure Check-no charge Reviewed 10/18/2014 12:00 AM PROTHROMBIN TIME Reviewed 11/21/2014 12:00 AM COMPLETE CBC W/AUTO DIFF WBC Reviewed 11/21/2014 12:00 AM COMPREHEN METABOLIC PANEL Reviewed 11/21/2014 12:00 AM VITAMIN B-12 Reviewed 11/21/2014 12:00 AM URINALYSIS AUTO W/SCOPE Reviewed 11/21/2014 12:00 AM ASSAY THYROID STIM HORMONE Reviewed 11/21/2014 12:00 AM VIT D 1 25-DIHYDROXY Reviewed 11/21/2014 12:00 AM CHEST X-RAY 2VW FRONTAL&LATL Reviewed 11/26/2014 12:00 AM RADEX RIBS UNILATERAL 2 VIEWS Reviewed 11/26/2014 12:00 AM URINALYSIS AUTO W/SCOPE Reviewed 12/26/2014 12:00 AM COMPLETE CBC W/AUTO DIFF WBC Reviewed 12/26/2014 12:00 AM COMPREHEN METABOLIC PANEL Reviewed 12/26/2014 12:00 AM US EXAM ABDOM COMPLETE Reviewed 12/26/2014 12:00 AM ECHO EXAM OF ABDOMEN Reviewed 12/26/2014 12:00 AM X-RAY EXAM SERIES ABDOMEN Reviewed 01/15/2011 12:00 AM URINALYSIS AUTO W/SCOPE Reviewed Results Summary Date and Description Results 02/25/2010 10:05 AM TRIGLYCERIDES 188.0 mg/dLCHOLESTEROL 162.0 mg/dLHDL 48.0 mg /dLTOT CHOL/HDL 3.4 LDL (CALC) 76.0 mg/dLPROTIME 18.10 secsINR 1.7 TSH 0.610 uIU /mLWBC 7.1 RBC 4.48 HGB 13.80 g/dLHCT 41.70 %MCV 93.0 fLMCH 30.80 pgMCHC 33.10 g /dLRDW SD 48 RDW CV 14.10 %MPV 10.90 fLPLT 197 NRBC# 0.00 NRBC% 0.0 %NEUT 53.90 %%LYMP 33.30 %%MONO 8.0 %%EOS 4.10 %%BASO 0.70 %#NEUT 3.83 #LYMP 2.37 #MONO 0.57 #EOS 0.29 #BASO 0.05 MANUAL DIFF NOT IND GLUCOSE 107.0 mg/dLSODIUM 141.0 mmol/LPOTASSIUM 4.10 mmol/LCHLORIDE 104.0 mmol/LCO2 26.0 mmol/LBUN 24.0 mg/ dLCREATININE 1.0 mg/dLSGOT/AST 23.0 IU/LSGPT/ALT 12.0 IU/LALK PHOS 79.0 IU/ LTOTAL PROTEIN 7.30 g/dLALBUMIN 4.10 g/dLTOTAL BILI 0.60 mg/dLCALCIUM 9.50 mg/ dLAGE 84 GFR NonAA 53 GFR AA 64 eGFR 53 eGFR AA* >60 09/30/2010 10:45 AM RA Factor < 10.0 URIC ACID 5.0 mg/dLCPK 84 IU/LWBC 9.1 RBC 3.99 HGB 11.80 g/dLHCT 37.10 %MCV 93.0 fLMCH 29.60 pgMCHC 31.80 g/dLRDW SD 49 RDW CV 14.30 %MPV 9.90 fLPLT 305 NRBC# 0.00 NRBC% 0.0 %NEUT 64.40 %%LYMP 20.50 %%MONO 10.80 %%EOS 3.60 %%BASO 0.70 %#NEUT 5.86 #LYMP 1.86 #MONO 0.98 # EOS 0.33 #BASO 0.06 MANUAL DIFF NOT IND 01/15/2011 11:10 AM COLOR YELLOW APPEARANCE CLOUDY SPEC GRAV >=1.030 pH 6.0 PROTEIN 30 GLUCOSE NEGATIVE KETONE NEGATIVE BILIRUBIN NEGATIVE BLOOD LARGE NITRITE POSITIVE LEUK SCREEN LARGE WBC/HPF 300-500 RBC/HPF 0-5 CASTS/LPF NEGATIVE CRYSTALS NEGATIVE MUCOUS THRDS NEGATIVE BACTERIA 2++ EPITH CELLS 1+ SQUAMOUS TRICHOMONAS NEGATIVE YEAST NEGATIVE CULT SET UP? YES 12/16/2011 1:50 PM WBC 8.1 RBC 4.07 HGB 12.20 g/dLHCT 38.60 %MCV 95.0 fLMCH 30.0 pgMCHC 31.60 g/dLRDW SD 47 RDW CV 13.60 %MPV 11.0 fLPLT 227 NRBC# 0.00 NRBC % 0.0 %NEUT 57.30 %%LYMP 28.50 %%MONO 9.0 %%EOS 4.30 %%BASO 0.90 %#NEUT 4.65 # LYMP 2.31 #MONO 0.73 #EOS 0.35 #BASO 0.07 MANUAL DIFF NOT IND TSH 0.070 uIU/ mLMAGNESIUM 2.40 mg/dLVITAMIN B12 231.0 pg/mL 03/17/2012 3:52 PM TSH 2.150 uIU/mL 10/18/2012 10:22 AM WBC 6.5 RBC 4.21 HGB 13.0 g/dLHCT 39.70 %MCV 94.0 fLMCH 30.90 pgMCHC 32.70 g/dLRDW SD 50 RDW CV 14.50 %MPV 10.70 fLPLT 214 NRBC# 0.00 NRBC% 0.0 %NEUT 53.40 %%LYMP 33.10 %%MONO 9.40 %%EOS 3.20 %%BASO 0.90 %#NEUT 3.47 #LYMP 2.15 #MONO 0.61 #EOS 0.21 #BASO 0.06 MANUAL DIFF NOT IND GLUCOSE 101.0 mg/dLSODIUM 142.0 mmol/LPOTASSIUM 3.80 mmol/LCHLORIDE 106.0 mmol/LCO2 25.0 mmol/LBUN 24.0 mg/dLCREATININE 1.0 mg/dLSGOT/AST 21.0 IU/LSGPT/ALT 9.0 IU/ LALK PHOS 111.0 IU/LTOTAL PROTEIN 7.20 g/dLALBUMIN 4.10 g/dLTOTAL BILI 0.50 mg/ dLCALCIUM 9.60 mg/dLAGE 86 GFR NonAA 53 GFR AA 64 eGFR 53 eGFR AA* 60 TRIGLYCERIDES 168.0 mg/dLCHOLESTEROL 156.0 mg/dLHDL 45.0 mg/dLTOT CHOL/HDL 3.5 LDL (CALC) 77.0 mg/dLTSH 3.580 uIU/mL 05/07/2013 2:08 PM WBC 10.1 RBC 4.32 HGB 13.40 g/dLHCT 41.40 %MCV 96.0 fLMCH 31.0 pgMCHC 32.40 g/dLRDW SD 53 RDW CV 15.20 %MPV 11.10 fLPLT 227 NRBC# 0.00 NRBC% 0.0 %NEUT 82.60 %%LYMP 14.50 %%MONO 2.70 %%EOS 0.10 %%BASO 0.10 %#NEUT 8.30 #LYMP 1.46 #MONO 0.27 #EOS 0.01 #BASO 0.01 MANUAL DIFF NOT IND GLUCOSE 123.0 mg/dLSODIUM 140.0 mmol/LPOTASSIUM 4.10 mmol/LCHLORIDE 103.0 mmol/LCO2 27.0 mmol/LBUN 26.0 mg/dLCREATININE 1.0 mg/dLSGOT/AST 29.0 IU/LSGPT/ALT 23.0 IU/ LALK PHOS 81.0 IU/LTOTAL PROTEIN 7.30 g/dLALBUMIN 4.50 g/dLTOTAL BILI 0.40 mg/ dLCALCIUM 10.10 mg/dLAGE 87 GFR NonAA 53 GFR AA 64 eGFR 53 eGFR AA* >60 TSH 1.490 uIU/mL 04/17/2014 10:40 AM GLUCOSE 107.0 mg/dLSODIUM 142.0 mmol/LPOTASSIUM 3.80 mmol/ LCHLORIDE 105.0 mmol/LCO2 26.0 mmol/LBUN 22.0 mg/dLCREATININE 1.10 mg/dLSGOT/ AST 28.0 IU/LSGPT/ALT 17.0 IU/LALK PHOS 74.0 IU/LTOTAL PROTEIN 7.80 g/dLALBUMIN 4.60 g/dLTOTAL BILI 0.80 mg/dLCALCIUM 10.0 mg/dLAGE 88 GFR NonAA 47 GFR AA 57 eGFR 47 eGFR AA* 57 TRIGLYCERIDES 163.0 mg/dLCHOLESTEROL 177.0 mg/dLHDL 66.0 mg/ dLTOT CHOL/HDL 2.7 LDL (CALC) 78.0 mg/dLWBC 7.8 RBC 4.18 HGB 13.30 g/dLHCT 39.80 %MCV 95.0 fLMCH 31.80 pgMCHC 33.40 g/dLRDW SD 52 MPV 10.90 fLPLT 205 % NEUT 78.10 %%LYMP 16.80 %%MIXED 5.10 #NEUT 6.10 #LYMP 1.30 #MIXED 0.40 MANUAL DIFF NOT IND VITAMIN D 18.30 ng/mLTSH 1.720 uIU/mLVITAMIN B12 321.0 pg/mLFOLATE 17.40 ng/mL 10/08/2014 3:56 PM PROTIME POCT 17.80 secsINR POCT 1.5 10/19/2014 12:29 PM PROTIME 25.10 secsINR 2.4 11/21/2014 1:35 PM WBC 7.0 RBC 3.91 HGB 11.90 g/dLHCT 37.70 %MCV 96.0 fLMCH 30.40 pgMCHC 31.60 g/dLRDW SD 51 RDW CV 14.30 %MPV 11.10 fLPLT 212 NRBC# 0.00 NRBC% 0.0 %NEUT 74.40 %%LYMP 19.70 %%MONO 5.20 %%EOS 0.30 %%BASO 0.40 %#NEUT 5.17 #LYMP 1.37 #MONO 0.36 #EOS 0.02 #BASO 0.03 MANUAL DIFF NOT IND GLUCOSE 109.0 mg/dLSODIUM 142.0 mmol/LPOTASSIUM 4.0 mmol/LCHLORIDE 105.0 mmol/LCO2 25.0 mmol/LBUN 24.0 mg/dLCREATININE 1.10 mg/dLSGOT/AST 25.0 IU/LSGPT/ALT 14.0 IU/ LALK PHOS 88.0 IU/LTOTAL PROTEIN 6.90 g/dLALBUMIN 4.10 g/dLTOTAL BILI 0.80 mg/ dLCALCIUM 9.0 mg/dLAGE 88 GFR NonAA 47 GFR AA 57 eGFR 47 eGFR AA* 57 TSH 0.940 uIU/mLVITAMIN B12 264.0 pg/mLVITAMIN D 15.30 ng/mL 11/21/2014 2:15 PM COLOR YELLOW APPEARANCE CLEAR SPEC GRAV 1.020 pH 7.0 PROTEIN NEGATIVE GLUCOSE NEGATIVE KETONE NEGATIVE BILIRUBIN NEGATIVE BLOOD NEGATIVE NITRITE NEGATIVE LEUK SCREEN TRACE MICRO INDICATED? SEE BELOW WBC/HPF 0 -5 RBC/HPF NEGATIVE CASTS/LPF NEGATIVE CRYSTALS NEGATIVE MUCOUS THRDS NEGATIVE BACTERIA 2++ EPITH CELLS FEW SQUAMOUS TRICHOMONAS NEGATIVE YEAST NEGATIVE CULT SET UP? YES 12/06/2014 11:05 AM COLOR YELLOW APPEARANCE CLEAR SPEC GRAV 1.025 pH 5.5 PROTEIN NEGATIVE GLUCOSE NEGATIVE KETONE NEGATIVE BILIRUBIN NEGATIVE BLOOD NEGATIVE NITRITE NEGATIVE LEUK SCREEN NEGATIVE MICRO INDICATED? NOT INDICATED 12/26/2014 10:36 AM WBC 7.1 RBC 4.24 HGB 12.90 g/dLHCT 40.40 %MCV 95.0 fLMCH 30.40 pgMCHC 31.90 g/dLRDW SD 50 RDW CV 14.40 %MPV 11.80 fLPLT 195 NRBC# 0.00 NRBC% 0.0 %NEUT 55.70 %%LYMP 29.70 %%MONO 10.50 %%EOS 2.80 %%BASO 1.30 %#NEUT 3.95 #LYMP 2.10 #MONO 0.74 #EOS 0.20 #BASO 0.09 MANUAL DIFF NOT IND GLUCOSE 109.0 mg/dLSODIUM 143.0 mmol/LPOTASSIUM 4.0 mmol/LCHLORIDE 107.0 mmol/LCO2 26.0 mmol/LBUN 18.0 mg/dLCREATININE 1.0 mg/dLSGOT/AST 23.0 IU/LSGPT/ALT 9.0 IU/LALK PHOS 115.0 IU/LTOTAL PROTEIN 7.10 g/dLALBUMIN 4.20 g/dLTOTAL BILI 0.60 mg/ dLCALCIUM 9.60 mg/dLAGE 89 GFR NonAA 52 GFR AA 63 eGFR 52 eGFR AA* >60 08/25/2015 2:38 PM COLOR YELLOW APPEARANCE CLEAR SPEC GRAV >=1.030 pH 5.5 PROTEIN 30 GLUCOSE NEGATIVE mg/dLKETONE NEGATIVE BILIRUBIN NEGATIVE BLOOD NEGATIVE NITRITE NEGATIVE LEUK SCREEN SMALL MICRO INDICATED? SEE BELOW WBC/HPF 10-20 RBC/HPF NEGATIVE CASTS/LPF 1+ HYALINE /LPFCRYSTALS NEGATIVE MUCOUS THRDS FEW BACTERIA FEW EPITH CELLS 1+ SQUAMOUS /HPFTRICHOMONAS NEGATIVE YEAST NEGATIVE CULT SET UP? YES 09/17/2015 11:55 AM WBC 6.5 RBC 3.77 HGB 11.50 g/dLHCT 36.50 %MCV 97.0 fLMCH 30.50 pgMCHC 31.50 g/dLRDW SD 49 RDW CV 13.70 %MPV 11.50 fLPLT 205 NRBC# 0.00 NRBC% 0.0 %NEUT 50.90 %%LYMP 33.80 %%MONO 10.10 %%EOS 2.80 %%BASO 1.60 %#NEUT 3.29 #LYMP 2.18 #MONO 0.65 #EOS 0.18 #BASO 0.10 MANUAL DIFF NOT IND COLOR YELLOW APPEARANCE HAZY SPEC GRAV >=1.030 pH 5.0 PROTEIN NEGATIVE GLUCOSE NEGATIVE mg/dLKETONE TRACE BILIRUBIN NEGATIVE BLOOD NEGATIVE NITRITE NEGATIVE LEUK SCREEN TRACE MICRO INDICATED? SEE BELOW WBC/HPF 5-10 RBC/HPF NEGATIVE CASTS /LPF 1+ HYALINE /LPFCRYSTALS NEGATIVE MUCOUS THRDS NEGATIVE BACTERIA FEW EPITH CELLS 1+ SQUAMOUS /HPFTRICHOMONAS NEGATIVE YEAST NEGATIVE CULT SET UP? YES TSH 0.410 uIU/mLGLUCOSE 102.0 mg/dLSODIUM 143.0 mmol/LPOTASSIUM 4.30 mmol/LCHLORIDE 107.0 mmol/LCO2 25.0 mmol/LBUN 32.0 mg/dLCREATININE 1.40 mg/dLSGOT/AST 25.0 IU/ LSGPT/ALT 10.0 IU/LALK PHOS 68.0 IU/LTOTAL PROTEIN 7.0 g/dLALBUMIN 4.40 g/ dLTOTAL BILI 0.60 mg/dLCALCIUM 10.0 mg/dLAGE 89 GFR NonAA 36 GFR AA 44 eGFR 36 eGFR AA* 44 FREE T4 1.14 TROPONIN-I AD <0.04 ng/mL 12/09/2016 3:30 PM TSH 1.970 uIU/mLGLUCOSE 110.0 mg/dLSODIUM 142.0 mmol/ LPOTASSIUM 4.50 mmol/LCHLORIDE 107.0 mmol/LCO2 27.0 mmol/LBUN 27.0 mg/ dLCREATININE 1.20 mg/dLSGOT/AST 28.0 IU/LSGPT/ALT 15.0 IU/LALK PHOS 79.0 IU/ LTOTAL PROTEIN 7.80 g/dLALBUMIN 4.10 g/dLTOTAL BILI 0.30 mg/dLCALCIUM 9.60 mg/ dLAGE 89 GFR NonAA 42 GFR AA 51 eGFR 42 eGFR AA* 51 SEDRATE 20.0 mm/hrRA Factor <15.0 IU/mLANA Direct Negative CCP Antibodies IgG/IgA 7 Units History Of Immunizations Name Date Admin Mfg Name Mfg Code Trade Name Lot# Route Inj Vis Given Vis Pub CVX Influenza 04/01/2011 Not Entered NE Not Entered Not Entered Not Entered 04/01/2011 06/13/2017 141 History of Past Illness Name Date of Onset Comments Hypertension Anxiety hypothyroid Hyperlipidemia Atrial Fibrillation Chronic Obstructive Pulmonary Disease Rhinitis, Allergic Sep 17 2009 11:11AM Chronic Obstructive Pulmonary Disease Sep 17 2009 11:11AM Skin lesion, non-healing:face, trunk, extremities Sep 17 2009 11:11AM Osteopenia spinal stenosis Pneumonia Polymyalgia rheumatica 07/03/2013 Hypertension Feb 25 2010 9:42AM Hyperlipidemia, Unspecified Feb 25 2010 9:42AM Hypothyroidism, Acquired Feb 25 2010 9:42AM Numbness and Tingling bilateral LE [place]yer thyroiditis Dysphagia 04/15/2014 Carpal Tunnel Syndrome 04/15/2014 Vitamin deficiency 04/15/2014 Essential Hypertension Apr 20 2010 10:48AM Hyperlipidemia Apr 20 2010 10:48AM Atrial Fibrillation Apr 20 2010 10:48AM 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 Apr 20 2010 10:48AM Hypothyroidism, Acquired Apr 20 2010 10:48AM Anxiety Disorder Apr 20 2010 10:48AM Chronic Obstructive Pulmonary Disease Apr 20 2010 10:48AM Essential Hypertension May 20 2010 1:10PM Hyperlipidemia May 20 2010 1:10PM Atrial Fibrillation May 20 2010 1:10PM 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 May 20 2010 1:10PM Hypothyroidism, Acquired May 20 2010 1:10PM Anxiety Disorder May 20 2010 1:10PM Chronic Obstructive Pulmonary Disease May 20 2010 1:10PM Neuropathy May 20 2010 1:10PM Essential Hypertension Aug 21 2010 9:25AM Hyperlipidemia Aug 21 2010 9:25AM Atrial Fibrillation Aug 21 2010 9:25AM Long-Term (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 Aug 21 2010 9:25AM Hypothyroidism, Acquired Aug 21 2010 9:25AM Neuropathy Aug 21 2010 9:25AM Anxiety Disorder Aug 21 2010 9:25AM Chronic Obstructive Pulmonary Disease Aug 21 2010 9:25AM Essential Hypertension Sep 07 2010 4:10PM Hyperlipidemia Sep 07 2010 4:10PM Atrial Fibrillation Sep 07 2010 4:10PM 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 Sep 07 2010 4:10PM Hypothyroidism, Acquired Sep 07 2010 4:10PM Neuropathy Sep 07 2010 4:10PM Anxiety Disorder Sep 07 2010 4:10PM Chronic Obstructive Pulmonary Disease Sep 07 2010 4:10PM Diarrhea Sep 07 2010 4:10PM Psoriasis 01/15/2016 Essential Hypertension Sep 30 2010 10:07AM Hyperlipidemia Sep 30 2010 10:07AM Atrial Fibrillation Sep 30 2010 10:07AM 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 Sep 30 2010 [...] 2:08PM Atrial Fibrillation Oct 05 2010 2:08PM 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 Oct 05 2010 [...] 2:08PM Polymyalgia Rheumatica Oct 05 2010 2:08PM Actinic keratosis 05/04/2016 [place] 05/03/2016 Essential Hypertension Oct 19 2010 2:12PM Hyperlipidemia Oct 19 2010 2:12PM Atrial Fibrillation Oct 19 2010 2:12PM 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 Oct 19 2010 [...] 2:58PM Atrial Fibrillation Nov 16 2010 2:58PM 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 Nov 16 2010 [...] 2:04PM Atrial Fibrillation Jan 21 2011 2:04PM Long-Term (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 Jan 21 2011 [...] 10:00AM Atrial Fibrillation Apr 13 2011 10:00AM 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 Apr 13 2011 [...] 10:33AM Atrial Fibrillation Aug 11 2011 10:33AM Long-Term (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 Aug 11 2011 [...] 11:10AM Atrial Fibrillation Aug 16 2011 11:10AM 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 Aug 16 2011 [...] 1:51PM Atrial Fibrillation Sep 08 2011 1:51PM Long-Term (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 Sep 08 2011 [...] 3:51PM Atrial Fibrillation Sep 21 2011 3:51PM 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 Sep 21 2011 [...] 3:55PM Atrial Fibrillation Sep 29 2011 3:55PM Long-Term (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 Sep 29 2011 [...] 1:08PM Atrial Fibrillation Dec 16 2011 1:08PM 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 Dec 16 2011 [...] 4:15PM Atrial Fibrillation Feb 17 2012 4:15PM 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 Feb 17 2012 4:15PM Hypothyroidism, Acquired Feb 17 2012 4:15PM Myalgia Feb 17 2012 4:15PM Osteoporosis Feb 17 2012 4:15PM Neuropathy Feb 17 2012 4:15PM Anxiety Disorder Feb 17 2012 4:15PM Chronic Obstructive Pulmonary Disease Feb 17 2012 4:15PM Fatigue Feb 17 2012 4:15PM Polymyalgia Rheumatica Sep 2011 4:15PM Lumbar spinal stenosis Feb 17 2012 4:15PM Spondylolisthesis , lumbar Apr 19 2012 [...] 1:24PM Atrial Fibrillation Oct 16 2012 1:24PM Long-Term (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 Oct 16 2012 [...] 1:08PM Atrial Fibrillation May 07 2013 1:08PM 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 May 07 2013 [...] 15 2014 3:49PM Carpal tunnel syndrome Feb 4 2014 3:49PM Dysphagia Feb 4 2014 3:49PM Polymyalgia Rheumatica Feb 4 2014 3:49PM Vitamin deficiency Feb 4 2014 3:49PM Anxiety Feb 4 2014 3:49PM Atrial Fibrillation Feb 4 2014 3:49PM Chronic Obstructive Pulmonary Disease Feb 4 2014 3:49PM Hyperlipidemia Feb 4 2014 3:49PM hypothyroid Feb 4 2014 3:49PM Osteopenia Feb 4 2014 3:49PM Numbness and Tingling Feb 4 2014 3:49PM Orthostatic hypotension Sep 24 2014 [...] 2016 4:13PM Neuropathy Jan 15 2016 4:13PM Insect bites, initial encounter Apr 09 2016 10:06AM Cutaneous candidiasis Apr 09 2016 10:06AM [place] Apr 30 2016 1:55PM Actinic Keratosis Apr 30 2016 1:57PM [place] Apr 30 2016 1:57PM Actinic keratosis Apr 30 2016 1:55PM Pharyngitis, unspecified etiology Jun 09 2016 6:02PM Primary osteoarthritis involving multiple joints Dec 09 2016 1:39PM Intrinsic atopic dermatitis Dec 09 2016 1:39PM Hypothyroidism, Acquired Dec 09 2016 1:39PM Actinic keratosis Dec 09 2016 1:39PM Actinic Keratosis Jan 11 2017 10:24AM Essential hypertension Jul 05 2017 11:14AM Arthritis Jul 05 2017 11:14AM Primary osteoarthritis involving multiple joints Aug 09 2017 11:43AM Essential Hypertension Aug 09 2017 11:43AM 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 11:43AM Mechanical low back pain Aug 23 2017 1:45PM Pain in left wrist Aug 23 2017 1:45PM Other chronic pain Aug 23 2017 1:45PM Pain in right wrist Aug 23 2017 1:45PM Other chronic pain Aug 23 2017 1:45PM Lumbar spinal stenosis Aug 23 2017 1:45PM Bowel incontinence Aug 23 2017 1:45PM Leg numbness Aug 23 2017 1:45PM Falls frequently Aug 23 2017 1:45PM Payers Insurance Name Company Name Plan Name Plan Number Policy Number Policy Group Number Start Date [facility] [id number] Tuesday, 2017 Medicare Part B Medicare [place] [id number] Wednesday, [id number] Wednesday, 2008 Medicare Part A Medicare Part A [id number] N/A [employer]itable Life MC Supplement [id number] Thursday, 2013 [employer] Equitable [employer] You [id number] Thursday, 2013 [facility] [id number] N/A Medicare C Medicare RHC [id number] Wednesday, 1992 [employer] You [id number] Tuesday, 2015 Medicare Part A Medicare - Lab/Xray [id number] N/A History of Encounters Visit Date Visit Type Provider 08/23/2017 Office visit Kelvin Desouza DO 08/09/[address] Eliseo Malave MD 07/05/[address] Eliseo Malave MD 06/29/2017 Hospital Shawanda Monterroso MD 02/11/2017 [facility] Shawanda Monterroso MD 01/11/[address] Eliseo Malave MD 12/09/[address] Eliseo Malave MD 06/09/2016 Office visit Jose Roberto Troy APRN 04/30/2016 Procedures Prem Kim DO 04/09/[address] Eliseo Malave MD 01/15/[address] Eliseo Malave MD 11/24/[address] Eliseo Malave MD 10/03/[address] Eliseo Malave MD 09/17/2015 Office visit Jose Roberto Troy APRN 02/06/2015 [facility] Giana Mendes MD 02/06/2015 Office visit Collette Gonzales MD 12/30/2014 Office visit Jose Roberto Troy APRN 12/26/2014 Office visit Jose Roberto Troy APRN 11/21/2014 [facility] Shawanda Monterroso MD 11/21/2014 Office visit Collette Gonzales MD 11/18/2014 Office visit Virginia Pollock COMPOSITE BOND WORKER 10/08/2014 Nurse visit Jose Roberto Troy APRN 09/24/2014 Office visit Virginia Pollock APRN 07/17/2014 Office visit Collette Gonzales MD 04/15/2014 Office visit Collette Gonzales MD 03/07/2014 Office visit Mariano Fonseca MD 01/17/2014 Office visit Virginia Pollock COMPOSITE BOND WORKER 09/18/2013 Office visit Collette Gonzales MD 06/29/2013 Office visit Jose Roberto Troy APRN 05/07/2013 Office visit Verónica Seay MD 03/13/2013 Hospital Shawanda Monterroso MD 01/23/2013 Office visit Virginia Pollock APRN 11/27/2012 Office visit Virginia Pollock COMPOSITE BOND WORKER 11/02/2012 Office visit Verónica Seay MD 10/16/2012 Office visit Verónica Seay MD 06/27/2012 Office visit Lai Sharp MD 05/10/2012 Office visit Lai Sharp MD 04/19/2012 Office visit Lai Sharp MD 02/17/2012 Office visit Verónica Seay MD 12/16/2011 Office visit Verónica Seay MD 11/05/2011 [facility] Ubaldo Monterroso MD 09/29/2011 Office visit Verónica Seay MD 09/21/2011 Office visit Verónica Seay MD 09/08/2011 Office visit Verónica Seay MD 08/16/2011 Office visit Verónica Seay MD 08/13/2011 Nurse visit Verónica Seay MD 08/12/2011 Nurse visit Verónica Seay MD 08/11/2011 Office visit Verónica Seay MD 07/08/2011 Office visit Tanya Rodriguez APRN 04/13/2011 Office visit Verónica Seay MD 01/21/2011 [...]
--- OUTSIDE RECORDS SUMMARY | 2017-09-30 12:22 | XMS REPORT ---
Author Jose Roberto Park [facility] Address [address] [place], [place] [id number] Care Team Providers Care Supervisor Title Name Role Phone Jose Roberto Troy PCP Collette Gonzales PreferredProvider Allergies and Adverse Reactions Name Reaction Notes doxycycline hyclate hives/ vomiting Plan of Treatment Planned Activity Comments Planned Date Planned Time Plan/Goal Thyroid stimulating hormone (TSH) 10/16/2012 12:00 AM INR (international normalized ratio) monitoring education 10/04/2014 12:00 AM CBC with Auto 11/18/2014 12:00 [...] MOUTH DAILY pravastatin 40 mg oral tablet 01/24/2015 TAKE [...] take 1 capsule by oral route daily vitamin Z19-kiiiw acid 500-400 mcg oral tablet take 1 tablet by oral route daily amoxicillin 500 mg oral capsule 06/09/2016 06/19/2016 take 2 capsules by oral route every 12 hours for 10 days Name Start Date Expiration Date SIG [...] route every 12 hours for 7 days Lyrica 50 mg oral capsule 11/24/2015 02/22/2016 [...] Cholestyramine) Apply to affected areas as directed Discontinued Name Start Date Discontinued Date SIG [...] syndrome Active 04/15/2014 Vitamin deficiency Active 04/15/2014 Psoriasis Active 01/15/2016 Actinic Keratosis Active 05/03/2016 Comedone Active 05/03/2016 Actinic Keratosis Active 05/04/2016 Vital Signs Date Time BP-Sys(mm[Hg] BP-Andree(mm[Hg]) HR(bpm) RR(rpm) Temp WT HT HC BMI BSA BMI Percentile O2 Sat(%) 06/09/2016 6:00:00 PM 132 mmHg 74 mmHg 72 bpm 18 rpm 97 F 141.375 lbs 63 in 25.04 kg/m2 1.69 m2 98 % 04/30/2016 1:51:00 PM 130 mmHg 64 mmHg 74 bpm 20 rpm 96.6 F 137 lbs 63 in 24.2682 kg/m 1.662 m 04/09/2016 10:01:00 AM 140 mmHg 78 mmHg 77 bpm 20 rpm 97 F 136 lbs 65 in 22.63 kg/m2 1.68 m2 98 % 01/15/2016 4:10:00 PM 132 mmHg 68 mmHg 84 bpm 97.9 F 132 lbs 65 in 21.9657 kg/m 1.6571 m 98 % 11/24/2015 4:21:00 PM 140 mmHg 72 mmHg 79 bpm 16 rpm 97.9 F 129 lbs 65 in 21.47 kg/m2 1.64 m2 100 % 10/03/2015 1:29:00 PM 128 mmHg 80 mmHg 76 bpm 16 rpm 96.6 F 128 lbs 65 in 21.3001 kg/m 1.6318 m 100 % 09/17/2015 11:07:00 AM 130 mmHg 80 mmHg 81 bpm 18 rpm 97.3 F 127 lbs 65 in 21.13 kg/m2 1.63 m2 98 % 02/06/2015 5:21:00 PM 110 mmHg 50 mmHg 64 bpm 20 rpm 96.2 F 160 lbs 65 in 26.6251 kg/m 1.8244 m 96 % 12/30/2014 1:44:00 PM 135 mmHg 60 mmHg 86 bpm 18 rpm 96.7 F 164 lbs 63 in 29.05 kg/m2 1.82 m2 95 % 12/26/2014 9:03:00 AM 160 mmHg 80 mmHg 81 bpm 16 rpm 97.8 F 164 lbs 63 in 29.051 kg/m 1.8184 m 96 % 11/21/2014 11:29:00 AM 134 mmHg 64 mmHg 79 bpm 98.4 F 167.5 lbs 63 in 29.67 kg/m2 1.84 m2 96 % 11/18/2014 1:26:00 PM 134 mmHg 64 mmHg 76 bpm 20 rpm 97.5 F 169 lbs 63 in 29.9367 kg/m 1.8459 m 96 % 10/08/2014 4:16:00 PM 140 mmHg [...] 1.87 m2 Social History Name Description Comments Alcohol Current [...] 12:00 AM DESTRUCT PREMALG LES 2-14 Reviewed 12/16/2011 12:00 AM COMPREHEN METABOLIC PANEL Reviewed 12/16/2011 12:00 AM ASSAY THYROID STIM HORMONE Reviewed 12/16/2011 12:00 AM COMPLETE CBC W/AUTO DIFF WBC Reviewed 12/16/2011 12:00 AM VITAMIN B-12 Reviewed 12/16/2011 12:00 AM ASSAY OF MAGNESIUM Reviewed 12/16/2011 12:00 AM ASSAY OF VITAMIN B-6 Reviewed 02/03/2012 12:00 AM ASSAY THYROID STIM HORMONE Reviewed 10/16/2012 12:00 AM COMPREHEN METABOLIC PANEL [...] HIPS Reviewed 10/04/2014 12:00 AM PROTHROMBIN TIME Reviewed 10/08/2014 12:00 AM Blood Pressure Check-no [...] AA 64 eGFR 53 eGFR AA* >60 09/09/2010 2:15 PM C DIFFICILE NEGATIVE -- C DIFF TOXIN NOT DETECTED 09/30/2010 10:45 AM RA Factor < 10.0 URIC ACID 5.0 mg/dLCPK 84 IU/LSEDRATE 96.0 mm/hrWBC 9.1 RBC 3.99 HGB 11.80 g/dLHCT 37.10 %MCV 93.0 fLMCH 29.60 pgMCHC 31.80 g/dLRDW SD 49 RDW CV 14.30 %MPV 9.90 fLPLT 305 NRBC# 0.00 NRBC% 0.0 %NEUT 64.40 %%LYMP 20.50 %%MONO 10.80 %%EOS 3.60 %%BASO 0.70 %#NEUT 5.86 #LYMP 1.86 # MONO 0.98 #EOS 0.33 #BASO 0.06 MANUAL DIFF NOT IND [...] 0.35 #BASO 0.07 MANUAL DIFF NOT IND GLUCOSE 100.0 mg/ dLSODIUM 144.0 mmol/LPOTASSIUM 4.30 mmol/LCHLORIDE 107.0 mmol/LCO2 29.0 mmol/ LBUN 20.0 mg/dLCREATININE 0.90 mg/dLSGOT/AST 18.0 IU/LSGPT/ALT 7.0 IU/LALK PHOS 78.0 IU/LTOTAL PROTEIN 6.60 g/dLALBUMIN 4.20 g/dLTOTAL BILI 0.30 mg/dLCALCIUM 9.10 mg/dLAGE 86 GFR NonAA 60 GFR AA 73 eGFR 60 eGFR AA* 60 TSH 0.070 uIU/ mLMAGNESIUM 2.40 mg/dLVITAMIN B12 [...] 3.5 LDL (CALC) 77.0 mg/dLTSH 3.580 uIU/mL 11/27/2012 12:38 [...] PM PROTIME POCT 70.50 secsINR POCT 5.9 CALLED TO/BY REPORTED TO DR GONZALES AT 1645 RODRIGUEZ 10/19/2014 12:29 PM PROTIME 25.10 secsINR 2.4 10/25/2014 3:55 PM PROTIME 29.0 secsINR 2.8 11/18/2014 2:15 PM PROTIME POCT 62.80 secsINR POCT 5.2 CALLED TO/BY REPORTED TO DR RONALD [id number] 11/21/2014 1:35 PM WBC 7.0 RBC 3.91 HGB 11.90 g/dLHCT 37.70 %MCV 96.0 [facility] 30.40 pgHC 31.60 g/dLRDW SD 51 RDW CV 14.30 [...] LEUK SCREEN NEGATIVE MICRO INDICATED? NOT INDICATED 12/06/2014 11:10 AM PROTIME POCT 37.60 secsINR POCT 3.1 12/26/2014 9:52 AM PROTIME POCT 94.0 secsINR POCT 7.8 CALLED TO/BY REPORTED TO RONALD NURSE,TEREZA CAN/ROLLY 12/26/2014 10:36 AM WBC 7.1 RBC 4.24 [...] AA 63 eGFR 52 eGFR AA* >60 12/26/2014 11:15 AM WBC 7.3 RBC 4.02 HGB 12.40 g/dLHCT 38.70 %MCV 96.0 fLMCH 30.80 pgMCHC 32.0 g/dLRDW SD 51 RDW CV 14.40 %MPV 11.40 fLPLT 192 NRBC# 0.00 NRBC% 0.0 %NEUT 57.60 %%LYMP 28.40 %%MONO 10.30 %%EOS 2.90 %%BASO 0.80 %#NEUT 4.17 #LYMP 2.06 #MONO 0.75 #EOS 0.21 #BASO 0.06 MANUAL DIFF NOT IND GLUCOSE 107.0 mg/dLSODIUM 142.0 mmol/LPOTASSIUM 4.10 mmol/LCHLORIDE 108.0 mmol/LCO2 23.0 mmol/LBUN 18.0 mg/dLCREATININE 0.90 mg/dLSGOT/AST 23.0 IU/LSGPT/ALT 8.0 IU/ LALK PHOS 110.0 IU/LTOTAL PROTEIN 6.90 g/dLALBUMIN 4.10 g/dLTOTAL BILI 0.70 mg/ dLCALCIUM 9.50 mg/dLAGE 89 GFR NonAA 59 GFR AA 72 eGFR 59 eGFR AA* >60 12/30/2014 1:24 PM PROTIME POCT 18.10 secsINR [...] FREE T4 1.14 TROPONIN-I AD <0.04 ng/mL 05/24/2016 2:25 PM GLUCOSE 105.0 mg/dLSODIUM 145.0 mmol/LPOTASSIUM 4.0 mmol/ LCHLORIDE 109.0 mmol/LCO2 29.0 mmol/LBUN 26.0 mg/dLCREATININE 1.20 mg/dLSGOT/ AST 28.0 IU/LSGPT/ALT 13.0 IU/LALK PHOS 118.0 IU/LTOTAL PROTEIN 7.20 g/ dLALBUMIN 4.0 g/dLTOTAL BILI 0.30 mg/dLCALCIUM 9.50 mg/dLAGE 89 GFR NonAA 42 GFR AA 51 eGFR 42 eGFR AA* 51 WBC 7.8 RBC 3.85 HGB 11.60 g/dLHCT 37.0 %MCV 96.0 fLMCH 30.10 pgMCHC 31.40 g/dLRDW SD 50 RDW CV 14.30 %MPV 10.30 fLPLT 237 NRBC# 0.00 NRBC% 0.0 TSH 4.240 uIU/mLFREE T4 1.14 History Of Immunizations Name Date Admin Mfg Name Mfg Code Trade Name Lot# Route Inj Vis Given Vis Pub CVX Influenza 04/01/2011 Not Entered NE Not Entered Not Entered Not Entered 04/01/2011 06/13/2016 141 History of Past Illness Name Date [...] 10:48AM Atrial Fibrillation Apr 20 2010 10:48AM [facility] (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 Apr 20 2010 10:48AM Hypothyroidism, Acquired Apr 20 2010 10:48AM Anxiety Disorder Apr 20 2010 10:48AM Chronic Obstructive Pulmonary Disease Apr 20 2010 10:48AM Essential Hypertension May 20 2010 1:10PM Hyperlipidemia May 20 2010 1:10PM Atrial Fibrillation May 20 2010 1:10PM Mcc (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 May 20 2010 1:10PM Hypothyroidism, Acquired May 20 2010 1:10PM Anxiety Disorder May 20 2010 1:10PM Chronic Obstructive Pulmonary Disease May 20 2010 1:10PM Neuropathy May 20 2010 1:10PM Essential Hypertension Aug 21 2010 9:25AM Hyperlipidemia Aug 21 2010 9:25AM Atrial Fibrillation Aug 21 2010 9:25AM 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 (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 Aug 21 2010 9:25AM Hypothyroidism, Acquired Aug 21 2010 9:25AM Neuropathy Aug 21 2010 9:25AM Anxiety Disorder Aug 21 2010 9:25AM Chronic Obstructive Pulmonary Disease Aug 21 2010 9:25AM Essential Hypertension Sep 07 2010 4:10PM Hyperlipidemia Sep 07 2010 4:10PM Atrial Fibrillation Sep 07 2010 4:10PM 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 (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 Sep 07 2010 4:10PM Hypothyroidism, Acquired Sep 07 2010 4:10PM Neuropathy Sep 07 2010 4:10PM Anxiety Disorder Sep 07 2010 4:10PM Chronic Obstructive Pulmonary Disease Sep 07 2010 4:10PM Diarrhea Sep 07 2010 4:10PM Psoriasis 01/15/2016 Essential Hypertension Sep 30 2010 10:07AM Hyperlipidemia Sep 30 2010 10:07AM Atrial Fibrillation Sep 30 2010 10:07AM 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 (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 Sep 30 2010 [...] 2:08PM Atrial Fibrillation Oct 05 2010 2:08PM Mcc (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 Oct 05 2010 [...] Polymyalgia Rheumatica Oct 05 2010 2:08PM Actinic Keratosis 05/04/2016 Comedone 05/03/2016 Essential Hypertension Oct 19 [...] 2:58PM Atrial Fibrillation Nov 16 2010 2:58PM 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 (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 Nov 16 2010 [...] 10:00AM Atrial Fibrillation Apr 13 2011 10:00AM Mcc (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 Apr 13 2011 [...] 10:33AM Atrial Fibrillation Aug 11 2011 10:33AM 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 (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 Aug 11 2011 [...] 11:10AM Atrial Fibrillation Aug 16 2011 11:10AM Mcc (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 Aug 16 2011 [...] 1:51PM Atrial Fibrillation Sep 08 2011 1:51PM 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 (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 Sep 08 2011 [...] 3:51PM Atrial Fibrillation Sep 21 2011 3:51PM Mcc (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 Sep 21 2011 [...] 3:55PM Atrial Fibrillation Sep 29 2011 3:55PM Mcc (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 Sep 29 2011 [...] 1:08PM Atrial Fibrillation Dec 16 2011 1:08PM 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 (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 Dec 16 2011 [...] 4:15PM Atrial Fibrillation Sep 6 2011 4:15PM Mcc (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 Sep 6 2011 [...] 1:08PM Atrial Fibrillation May 07 2013 1:08PM Mcc (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 May 07 2013 [...] tunnel syndrome Feb 4 2014 3:49PM Dysphagia b 2014 3:49PM Polymyalgia Rheumatica Feb 2014 3:49PM Vitamin deficiency Feb 4 2014 3:49PM Anxiety Feb 4 2014 3:49PM Atrial Fibrillation Feb 2014 3:49PM Chronic Obstructive Pulmonary Disease Feb 2014 3:49PM Hyperlipidemia Feb 2014 3:49PM hypothyroid Feb 2014 3:49PM Osteopenia [...] Pharyngitis, unspecified etiology Jun 09 2016 6:02PM Payers Insurance Name Company Name Plan Name Plan Number Policy Number Policy Group Number Start Date Medicare Part A Medicare [facility] [id number] N/A [employer] [id number] Tuesday, 2015 Medicare Part A Medicare - Lab/Xray [id number] N/A Medicare Part B Medicare Of [place] [id number] Wednesday, November 11, 1992 BCBS [facility] [id number] Wednesday, September 03, 2008 Medicare Part A Medicare Part A [id number] N/A [employer] Equitable Life Supplement [id number] Thursday, June 13, 2013 [employer] [id number] Thursday, June 13, 2013 [facility] [id number] N/A History of Encounters Visit Date Visit Type Provider 06/09/2016 Office visit Jose Roberto Troy STATE TESTED NURSING ASSISTANT 04/30/2016 Procedures Prem Kim DO 04/09/[address] Eliseo Malave MD 01/15/[address] Eliseo Malave MD 11/24/[address] Eliseo Malave MD 10/03/[address] Eliseo Malave MD 09/17/2015 Office visit Jose Roberto Troy STATE TESTED NURSING ASSISTANT 02/06/2015 Hospital Giana Mendes MD 02/06/2015 Office visit Collette Gonzales MD 12/30/2014 Office visit Jose Roberto Troy STATE TESTED NURSING ASSISTANT 12/26/2014 Office visit Jose Roberto Troy STATE TESTED NURSING ASSISTANT 11/21/2014 Hospital Shawanda Monterroso MD 11/21/2014 Office visit Collette Gonzales MD 11/18/2014 Office visit Virginia Pollock STATE TESTED NURSING ASSISTANT 10/08/2014 Nurse visit Jose Roberto Troy STATE TESTED NURSING ASSISTANT 09/24/2014 Office visit Virginia Pollock STATE TESTED NURSING ASSISTANT 07/17/2014 Office visit Collette Gonzales MD 04/15/2014 Office visit Collette Gonzales MD 03/07/2014 Office visit Mariano Fonseca MD 01/17/2014 Office visit Virginia Pollock STATE TESTED NURSING ASSISTANT 09/18/2013 Office visit Collette Gonzales MD 06/29/2013 Office visit Jose Roberto Troy STATE TESTED NURSING ASSISTANT 05/07/2013 Office visit Verónica Seay MD 03/13/2013 Hospital Shawanda Monterroso MD 01/23/2013 Office visit Virginia Pollock STATE TESTED NURSING ASSISTANT 11/27/2012 Office visit Virginia Pollock STATE TESTED NURSING ASSISTANT 11/02/2012 Office visit Verónica Seay MD 10/16/2012 Office visit Verónica Seay MD 06/27/2012 Office visit Lai Sharp MD 05/10/2012 Office visit Lai Sharp MD 04/19/2012 Office visit Lai Sharp MD 02/17/2012 Office visit Verónica Seay MD 12/16/2011 Office visit Verónica Seay MD 11/05/2011 [facility] Shawanda Monterroso MD 09/29/2011 Office visit Verónica Seay MD 09/21/2011 Office visit Verónica Seay MD 09/08/2011 Office visit Verónica Seay MD 08/16/2011 Office visit Verónica Seay MD 08/13/2011 Nurse visit Verónica Seay MD 08/12/2011 Nurse visit Verónica Seay MD 08/11/2011 Office visit Verónica Seay MD 07/08/2011 Office visit Tanya Rodriguez STATE TESTED NURSING ASSISTANT 04/13/2011 Office visit Verónica Seay MD 01/21/2011 [...]
--- OUTSIDE RECORDS SUMMARY | 2017-09-30 12:23 | XMS REPORT ---
Author Author Eliseo Malave [facility] Address [address] [place], [place] [address] Care Team Providers Care Inseam Leveler Name Role Phone Eliseo Malave PCP Allergies [...] 2 times a day for 30 days alprazolam 0.25 mg oral tablet 11/24/2015 12/24/2015 take 1 tablet by oral route 2 times a for 30 days Name Start Date Expiration [...] route every 12 hours for 7 days Discontinued Name Start Date Discontinued Date SIG Comments warfarin 5 mg oral tablet 07/17/2014 1/2 tablet on tue and and 1 tablet all other days metoprolol [...] Syndrome Active 04/15/2014 Vitamin deficiency Active 04/15/2014 Vital Signs Date Time BP-Sys(mm[Hg] BP-Andree(mm[Hg]) HR(bpm) RR(rpm) Temp WT HT HC BMI BSA BMI Percentile O2 Sat(%) 11/24/2015 4:21:00 PM 140 mmHg 72 mmHg [...] 12:00 AM ASSAY THYROID STIM HORMONE Returned 08/11/2011 12:00 AM CHEST X-RAY 2VW FRONTAL&LATL [...] polymyalgia rheumatica Pneumonia Polymyalgia Rheumatica 07/03/2013 Hypertension Sep 15 2010 9:42AM Hyperlipidemia, Unspecified Feb 25 2010 9:42AM Hypothyroidism, Acquired Feb 25 2010 9:42AM Numbness and Tingling bilateral LE Sawyer thyroiditis Dysphagia 04/15/2014 Carpal Tunnel Syndrome 04/15/2014 Vitamin deficiency 04/15/2014 Essential Hypertension Apr 20 2010 10:48AM Hyperlipidemia Apr 20 2010 10:48AM Atrial Fibrillation Apr 20 2010 10:48AM Senior Care (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 Apr 20 2010 10:48AM Hypothyroidism, Acquired Apr 20 2010 10:48AM Anxiety Disorder Apr 20 2010 10:48AM Chronic Obstructive Pulmonary Disease Apr 20 2010 10:48AM Essential Hypertension May 20 2010 1:10PM Hyperlipidemia May 20 2010 1:10PM Atrial Fibrillation May 20 2010 1:10PM Sales 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 (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 May 20 2010 1:10PM Hypothyroidism, Acquired May 20 2010 1:10PM Anxiety Disorder May 20 2010 1:10PM Chronic Obstructive Pulmonary Disease May 20 2010 1:10PM Neuropathy May 20 2010 1:10PM Essential Hypertension Aug 21 2010 9:25AM Hyperlipidemia Aug 21 2010 9:25AM Atrial Fibrillation Aug 21 2010 9:25AM Sales Trainer (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 Aug 21 2010 9:25AM Hypothyroidism, Acquired Aug 21 2010 9:25AM Neuropathy Aug 21 2010 9:25AM Anxiety Disorder Aug 21 2010 9:25AM Chronic Obstructive Pulmonary Disease Aug 21 2010 9:25AM Essential Hypertension Sep 07 2010 4:10PM Hyperlipidemia Sep 07 2010 4:10PM Atrial Fibrillation Sep 07 2010 4:10PM Sales Trainer (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 Sep 07 2010 4:10PM Hypothyroidism, Acquired Sep 07 2010 4:10PM Neuropathy Sep 07 2010 4:10PM Anxiety Disorder Sep 07 2010 4:10PM Chronic Obstructive Pulmonary Disease Sep 07 2010 4:10PM Diarrhea Sep 07 2010 4:10PM Essential Hypertension Sep 30 2010 10:07AM Hyperlipidemia Sep 30 2010 10:07AM Atrial Fibrillation Sep 30 2010 10:07AM Sales Trainer (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 Sep 30 2010 [...] 2:08PM Atrial Fibrillation Oct 05 2010 2:08PM Sales Trainer (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 Oct 05 2010 [...] 2:12PM Atrial Fibrillation Oct 19 2010 2:12PM Senior Care (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 Oct 19 2010 [...] 2:58PM Atrial Fibrillation Nov 16 2010 2:58PM Sales Trainer (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 Nov 16 2010 [...] 2:04PM Atrial Fibrillation Jan 21 2011 2:04PM Sales Trainer (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 Jan 21 2011 [...] 10:00AM Atrial Fibrillation Apr 13 2011 10:00AM Sales Trainer (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 Apr 13 2011 [...] 10:33AM Atrial Fibrillation Aug 11 2011 10:33AM Senior Care (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 Aug 11 2011 [...] 11:10AM Atrial Fibrillation Aug 16 2011 11:10AM Sales Trainer (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 Aug 16 2011 [...] 1:51PM Atrial Fibrillation Sep 08 2011 1:51PM Senior Care (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 Sep 08 2011 [...] 3:51PM Atrial Fibrillation Sep 21 2011 3:51PM Sales Trainer (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 Sep 21 2011 [...] 3:55PM Atrial Fibrillation Sep 29 2011 3:55PM Sales Trainer (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 Sep 29 2011 [...] 1:08PM Atrial Fibrillation Dec 16 2011 1:08PM Sales Trainer (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 Dec 16 2011 [...] 4:15PM Atrial Fibrillation Feb 17 2012 4:15PM Sales Trainer (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 Sep 6 2011 [...] 1:24PM Atrial Fibrillation Oct 16 2012 1:24PM Sales Trainer (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 Oct 16 2012 [...] 1:08PM Atrial Fibrillation May 07 2013 1:08PM Senior Care (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 May 07 2013 [...] Apr 15 2014 3:49PM Carpal tunnel syndrome Jul 17 2014 3:49PM Dysphagia Jul 17 2014 3:49PM Polymyalgia Rheumatica Jul 17 2014 3:49PM Vitamin deficiency Feb 2014 3:49PM Anxiety Feb 2014 3:49PM Atrial Fibrillation Jul 17 2014 3:49PM Chronic Obstructive Pulmonary Disease Jul 17 2014 3:49PM Hyperlipidemia b 2014 3:49PM hypothyroid Jul 17 2014 3:49PM Osteopenia Jul 17 2014 3:49PM Numbness and Tingling Feb 2014 [...] 2015 4:23PM Achrochordon Nov 24 2015 4:23PM Payers Insurance Name Company Name Plan Name Plan Number Policy Number Policy Group Number Start Date Medicare Part A Medicare RHC [id number] N/A [employer] [id number] Tuesday, 2015 Medicare Part A Medicare - Lab/Xray [id number] N/A Medicare Part B Medicare Of [place] [id number] Wednesday, November 11, 1992 [id number] Wednesday, September 03, 2008 Medicare Part A Medicare Part A [id number] N/A [employer] Equitable Life MC Supplement [id number] Thursday, June 13, 2013 [employer] You [id number] Thursday, June 13, 2013 [facility] [id number] N/A History of Encounters Visit Date Visit Type Provider 11/24/[address] Eliseo Malave MD 10/03/[address] Eliseo Malave MD 09/17/2015 Office visit Jose Roberto Troy APRN 02/06/2015 [facility] Giana Mendes MD 02/06/2015 Office visit Collette Gonzales MD 12/30/2014 Office visit Jose Roberto Troy APRN 12/26/2014 Office visit Jose Roberto Troy APRN 11/21/2014 [facility] Shawanda Monterroso MD 11/21/2014 Office visit Collette Gonzales MD 11/18/2014 Office visit Virginia Pollock APRN 10/08/2014 Nurse visit Jose Roberto Troy APRN 09/24/2014 Office visit Virginia Pollock APRN 07/17/2014 Office visit Collette Gonzales MD 04/15/2014 Office visit Collette Gonzales MD 03/07/2014 Office visit Mariano Fonseca MD 01/17/2014 Office visit Virginia Pollock APRN 09/18/2013 Office visit Collette Gonzales MD 06/29/2013 Office visit Jose Roberto Troy RECREATIONAL LEADER 05/07/2013 Office visit Verónica Seay MD 03/13/2013 Hospital Shawanda Monterroso MD 01/23/2013 Office visit Virginia Pollock RECREATIONAL LEADER 11/27/2012 Office visit Virginia Pollock RECREATIONAL LEADER 11/02/2012 Office visit Verónica Seay MD 10/16/2012 [...] Seay MD 07/08/2011 Office visit Tanya Rodriguez RECREATIONAL LEADER 04/13/2011 Office visit Verónica Seay MD 01/21/2011 [...]
--- NOTE | 2017-09-30 12:24 | ED Neurological Problem ---
General Stated Complaint: STROKE LIKE SYMPTOMS History of Present Illness Date Seen by Provider: Sep 30, 2017 Time Seen by Provider: 12:05 Initial Comments Patient is an 89-year-old female who is brought in by a director of psychology while on the way to a doctor's appointment to have stitches removed. The patient reports that last night at 2200 09/29/17 she reported having mental fuzziness, waking this morning she also reported having visual difficulties especially reading the clock. On arrival to the emergency room she reports having trouble thinking of the right words to say. Her initial stroke scale was 1, she does have limb ataxia in the right arm, and she misses her nose when asked to track finger. Timing/Duration: other (Started last night at 2200 on 09/29/17) Associated Symptoms: confusion, vision changes Allergies and Home Medications Patient Home Medication List Home Medication List Reviewed: Yes Review of Systems Constitutional: no symptoms reported, see HPI Eyes: See HPI, Blurred Vision, Vision Changes Ears, Nose, Mouth, Throat: no symptoms reported, see HPI Respiratory: no symptoms reported, see HPI Cardiovascular: no symptoms reported, see HPI Gastrointestinal: no symptoms reported, see HPI Genitourinary: no symptoms reported, see HPI Musculoskeletal: no symptoms reported, see HPI Skin: no symptoms reported, see HPI Psychiatric/Neurological: No Symptoms Reported, See HPI Endocrine: No Symptoms Reported, See HPI Hematologic/Lymphatic: No Symptoms Reported, See HPI Physical Exam Vital Signs Vital Signs - First Documented 09/30/17 12:05 Temp 98.4 Pulse 74 Resp 12 B/P (MAP) 175/97 Pulse Ox 100 O2 Delivery Room Air Capillary Refill : General Appearance: WD/WN, no apparent distress HEENT: PERRL/EOMI, normal ENT inspection Neck: non-tender, full range of motion Respiratory: chest non-tender, lungs clear, normal breath sounds, no respiratory distress, no accessory muscle use Cardiovascular: normal peripheral pulses, regular rate, rhythm, no edema, no gallop, no JVD, no murmur Gastrointestinal: normal bowel sounds, non tender, soft, no organomegaly, no pulsatile mass Back: normal inspection, no CVA tenderness, no vertebral tenderness Extremities: normal range of motion, non-tender, normal inspection, no pedal edema, no calf tenderness Neurologic/Psychiatric: no motor/sensory deficits, alert, normal mood/affect, oriented x 3 Crainal Nerves: normal hearing, normal speech Coordination/Gait: normal gait, other (On exam the patient had an abnormal finger to nose, she had mild ataxia of the right arm and missed her nose by about an inch.) Skin: normal color, warm/dry Lymphatic: no adenopathy Stroke Onset of Symptoms Date of Onset of Symptoms: Sep 29, 2017 Time of Symptom Onset: 22:00 Onset of Symptoms: Yes NIH Stroke Scale Assessment Select: Initial Level of Consciousness: 0=Alert (0), Level of Consciousness- Questions: 0=Answers both month/age (0), LOC Commands: 0=Performs both tasks (0) , Gaze: Normal (0), Visual Luna: 0=No visual loss (0), Facial Movement ( Facial Paresis): 0=Normal symmetrical mnt (0), Motor Function-Arms Right: 0=No drift (0), Motor Function-Arms Left: 0=No drift (0), Motor Function-Legs Right: 0=No drift (0), Motor Function-Legs Left: 0=No drift (0), Limb Ataxia: 1= Present in one limb (1), Sensory: 0=Normal:no loss (0), Best Language: 0=No aphasia (0), Dysarthria: 0=Normal (0), Extinction & Inattention: 0=No abnormality All (0), Total: 1 Progress/Results/Core Measures Lab Results Laboratory Tests Test 09/30/17 12:25 09/30/17 12:28 09/30/17 12:30 Range/Units Urine Color YELLOW Urine Clarity CLEAR Urine pH 5 5-9 Urine Specific [place] 1.025 H 1.016-1.022 Urine Protein 1+ H NEGATIVE Urine Glucose (UA) NEGATIVE NEGATIVE Urine Ketones NEGATIVE NEGATIVE Urine Nitrite NEGATIVE NEGATIVE Urine Bilirubin NEGATIVE NEGATIVE Urine Urobilinogen NORMAL NORMAL MG/DL Urine Leukocyte Esterase 2+ H NEGATIVE Urine RBC (Auto) NEGATIVE NEGATIVE Urine RBC RARE /HPF Urine WBC 5-10 H /HPF Urine Squamous Epithelial Cells 2-5 /HPF Urine Crystals NONE /LPF Urine Bacteria FEW H /HPF Urine Casts NONE /LPF Urine Mucus MODERATE H /LPF Urine Culture Indicated YES Glucometer 101 70-110 MG/DL White Blood Count 7.6 4.3-11.0 10^3/uL Red Blood Count 3.69 L 4.35-5.85 10^6/uL Hemoglobin 11.2 L 11.5-16.0 G/DL Hematocrit 36 35-52 % Mean Corpuscular Volume 97 80-99 FL Mean Corpuscular Hemoglobin 30 25-34 PG Mean Corpuscular Hemoglobin Concent 31 L 32-36 G/DL Red Cell Distribution Width 14.9 H 10.0-14.5 % Platelet Count 242 130-400 10^3/uL Mean Platelet Volume 10.6 H 7.4-10.4 FL Neutrophils (%) (Auto) 59 42-75 % Lymphocytes (%) (Auto) 23 12-44 % Monocytes (%) (Auto) 14 H 0-12 % Eosinophils (%) (Auto) 4 0-10 % Basophils (%) (Auto) 1 0-10 % Neutrophils # (Auto) 4.4 1.8-7.8 X 10^3 Lymphocytes # (Auto) 1.8 1.0-4.0 X 10^3 Monocytes # (Auto) 1.0 0.0-1.0 X 10^3 Eosinophils # (Auto) 0.3 0.0-0.3 10^3/uL Basophils # (Auto) 0.1 0.0-0.1 10^3/uL Prothrombin Time 12.9 12.2-14.7 SEC INR Comment 1.0 0.8-1.4 Activated Partial Thromboplast Time 29 24-35 SEC D-Dimer 0.90 H 0.00-0.49 UG/ML Sodium Level 143 135-145 MMOL/L Potassium Level 3.9 3.6-5.0 MMOL/L Chloride Level 109 H 98-107 MMOL/L Carbon Dioxide Level 25 21-32 MMOL/L Anion Gap 9 5-14 MMOL/L Blood Urea Nitrogen 32 H 7-18 MG/DL Creatinine 1.08 0.60-1.30 MG/DL Estimat Glomerular Filtration Rate 48 BUN/Creatinine Ratio 30 Glucose Level 101 70-105 MG/DL Calcium Level 9.7 8.5-10.1 MG/DL Total Bilirubin 0.4 0.1-1.0 MG/DL Aspartate Amino Transf (AST/SGOT) 27 5-34 U/L Alanine Aminotransferase (ALT/SGPT) 12 0-55 U/L Alkaline Phosphatase 97 40-136 U/L Troponin I < 0.30 <0.30 NG/ML Total Protein 7.6 6.4-8.2 GM/DL Albumin 4.3 3.2-4.5 GM/DL My Orders Orders - TERRY SIDDIQUI MOVIE SHOT CAMERA OPERATOR Cbc With Automated Diff (09/30/17 12:15) Protime With Inr (09/30/17 12:15) Partial Thromboplastin Time (09/30/17 12:15) Comprehensive Metabolic Panel (09/30/17 12:15) Fibrin Degradation Products (09/30/17 12:15) Troponin I (09/30/17 12:15) Ua Culture If Indicated (09/30/17 12:15) Chest 1 View, Ap/Pa Only (09/30/17 12:15) Ekg Tracing (09/30/17 12:15) Nothing By Mouth (09/30/17 Dinner) Accucheck Stat ONCE (09/30/17 12:15) Saline Lock/Iv-Start (09/30/17 12:15) Vital Signs Stroke Patient Q15M (09/30/17 12:15) Ct Head Wo-R/O Stroke (09/30/17 12:15) O2 (09/30/17 12:15) Intake & Output 06,14,22 (09/30/17 12:15) Monitor-Rhythm Ecg Trace Only (09/30/17 12:15) Dysphagia Screening Tool (09/30/17 12:15) Urine Culture (09/30/17 12:25) Vital Signs/I&O 09/30/17 09/30/17 12:05 12:05 Temp 98.4 Pulse 74 74 Resp 12 12 B/P (MAP) 175/97 175/97 (123) Pulse Ox 100 O2 Delivery Room Air Departure Communication (Admissions) Case discussed with Dr. Chiang. He agrees with plan of care. Impression Primary Impression: Urinary tract infection Additional Impression: Cognitive change Disposition: 01 HOME, SELF-CARE Condition: Stable Departure-Patient Inst. Decision time for Depature: 13:42 Referrals: NO,LOCAL PHYSICIAN (PCP/Family) Primary Care Physician Patient Instructions: NO INSTRUCTIONS GIVEN Add. Discharge Instructions: Follow-up with your doctor next week. Return to ER over the weekend for any worsening symptoms or other concerns. Start the new antibiotic that Dr. Morales prescribed today. This will help with a bladder infection as well. TERRY SIDDIQUI APRN Sep 30, 2017 12:24
--- OUTSIDE RECORDS SUMMARY | 2017-09-30 12:25 | XMS REPORT ---
Author Author [facility] Organization [facility] Address [address] [place], [place] [id number] Care Team Providers Care Russian Rubber Name Role Phone PCP Unavailable Allergies and Adverse Reactions Name Reaction Notes doxycycline hyclate hives/ vomiting Plan of Treatment Planned Activity Comments Planned Date Planned Time Plan/Goal ASSAY THYROID STIM HORMONE 10/16/2012 12:00 AM COMPLETE CBC W/AUTO DIFF WBC 11/18/2014 12:00 AM COMPREHEN METABOLIC PANEL 11/18/2014 12:00 AM ASSAY OF TROPONIN QUANT 11/18/2014 12:00 AM ASSAY OF MAGNESIUM 11/18/2014 12:00 AM CHEST X-RAY 4/> VIEWS 11/18/2014 12:00 AM Medications Active Name Start Date Estimated Completion Date SIG Comments flecainide oral tablet 100 mg take 1 tablet (100 mg) by oral route every 12 hours pravastatin oral tablet 40 mg 01/11/2014 01/06/2015 TAKE 1 TABLET BY MOUTH EVERY DAY amlodipine oral tablet 5 mg take 1 tablet (5 mg) by oral route once daily levothyroxine oral tablet 75 mcg 05/08/2014 TAKE [...] 90 days warfarin oral tablet 5 mg 11/05/2014 12/05/2014 take 1 tablet (5 mg) by oral route once daily for 30 days levothyroxine oral tablet 75 mcg 11/06/2014 TAKE ONE TABLET BY MOUTH ONCE DAILY Name Start Date Expiration Date SIG Comments [...] route once daily for 30 days levothyroxine Oral tablet 75 mcg 05/07/2014 11/03/2014 TAKE 1 TABLET BY MOUTH DAILY for 30 days warfarin oral tablet 1 mg 10/11/2014 11/10/2014 take 1 tablet by oral route three x per week Discontinued Name Start Date Discontinued Date SIG Comments Warfarin Oral Tablet 5 mg 07/17/2014 1/2 tablet on tue and and 1 tablet all other days Metoprolol [...] times a day for 30 days Pradaxa oral capsule 150 mg 07/17/2014 11/18/2014 take 1 capsule (150 mg) by oral route 2 times per day for 30 days warfarin oral tablet [...] HC BMI BSA BMI Percentile O2 Sat(%) 11/18/2014 1:26:00 PM 134 mmHg 64 mmHg [...] F 172 lbs 63 in 30.47 kg/m2 1.8622 m 95 % 04/15/2014 3:43:00 PM 138 mmHg 68 mmHg 86 bpm 16 rpm 97.9 F 173 lbs 63 in 30.6453 kg/m 1.87 m2 96 % 03/07/2014 1:13:00 PM 134 mmHg 70 mmHg 62 bpm 16 rpm 97.6 F 173.375 lbs 64 in 29.76 kg/m2 1.8844 m 01/17/2014 11:30:00 AM 160 mmHg 72 mmHg 72 bpm 20 rpm 97.4 F 168.8 lbs 65 in 28.0895 kg/m 1.87 m2 96 % 09/18/2013 9:56:00 AM 155 mmHg 78 mmHg 76 bpm 18 rpm 97.2 F 177 lbs 65 in 29.45 kg/m2 1.9189 m 93 % 06/29/2013 11:31:00 AM 130 mmHg 70 mmHg 65 bpm 18 rpm 98.3 F 174 lbs 96 % 05/07/2013 1:03:00 PM 138 mmHg 72 mmHg 74 bpm 16 rpm 96.5 F 170 lbs 93 % 01/23/2013 2:39:00 PM 150 mmHg 78 mmHg 73 bpm 20 rpm 97.8 F 166.4 lbs 65 in 27.6901 kg/m 1.86 m2 96 % 11/27/2012 11:26:00 AM 152 mmHg 68 mmHg 70 bpm 20 rpm 97.5 F 171.6 lbs 65 in 28.56 kg/m2 1.8894 m 96 % 11/02/2012 3:24:00 PM 132 mmHg 68 mmHg 72 bpm 18 rpm 97 F 167.5 lbs 65 in 27.8732 kg/m 1.87 m2 10/16/2012 1:20:00 PM 130 mmHg [...] 1.875 m Social History Name Description Comments Tobacco Never [...] Reviewed 10/18/2014 12:00 AM PROTHROMBIN TIME Returned 01/15/2011 12:00 AM URINALYSIS AUTO W/SCOPE [...] %#NEUT 6.10 #LYMP 1.30 VITAMIN D 18.30 ng/mLTS 1.720 uIU/mLVITAMIN B12 321.0 pg/mLFOLATE 17.40 ng/mL 10/08/2014 3:56 PM PROTIME POCT 17.80 secsINR POCT 1.5 10/16/2014 4:35 PM PROTIME POCT 70.50 secsINR POCT 5.9 10/19/2014 12:29 PM PROTIME 25.10 secsINR 2.4 10/25/2014 3:55 PM PROTIME 29.0 secsINR 2.8 History Of Immunizations Name Date Admin Mfg [...] 10:48AM Atrial Fibrillation Apr 20 2010 10:48AM Detention (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 Apr 20 2010 10:48AM Hypothyroidism, Acquired Apr 20 2010 10:48AM Anxiety Disorder Apr 20 2010 10:48AM Chronic Obstructive Pulmonary Disease Apr 20 2010 10:48AM Essential Hypertension May 20 2010 1:10PM Hyperlipidemia May 20 2010 1:10PM Atrial Fibrillation May 20 2010 1:10PM Car Cleaner (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 May 20 2010 1:10PM Hypothyroidism, Acquired May 20 2010 1:10PM Anxiety Disorder May 20 2010 1:10PM Chronic Obstructive Pulmonary Disease May 20 2010 1:10PM Neuropathy May 20 2010 1:10PM Essential Hypertension Aug 21 2010 9:25AM Hyperlipidemia Aug 21 2010 9:25AM Atrial Fibrillation Aug 21 2010 9:25AM Car Cleaner (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 Aug 21 2010 9:25AM Hypothyroidism, Acquired Aug 21 2010 9:25AM Neuropathy Aug 21 2010 9:25AM Anxiety Disorder Aug 21 2010 9:25AM Chronic Obstructive Pulmonary Disease Aug 21 2010 9:25AM Essential Hypertension Sep 07 2010 4:10PM Hyperlipidemia Sep 07 2010 4:10PM Atrial Fibrillation Sep 07 2010 4:10PM Detention (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 Sep 07 2010 4:10PM Hypothyroidism, Acquired Sep 07 2010 4:10PM Neuropathy Sep 07 2010 4:10PM Anxiety Disorder Sep 07 2010 4:10PM Chronic Obstructive Pulmonary Disease Sep 07 2010 4:10PM Diarrhea Sep 07 2010 4:10PM Essential Hypertension Sep 30 2010 10:07AM Hyperlipidemia Sep 30 2010 10:07AM Atrial Fibrillation Sep 30 2010 10:07AM Car Cleaner (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 Sep 30 2010 [...] Atrial Fibrillation Oct 05 2010 2:08PM Car Cleaner (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 Oct 05 2010 [...] 2:12PM Atrial Fibrillation Oct 19 2010 2:12PM Detention (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 Oct 19 2010 [...] 2:58PM Atrial Fibrillation Nov 16 2010 2:58PM Detention (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 Nov 16 2010 [...] 2:04PM Atrial Fibrillation Jan 21 2011 2:04PM Car Cleaner (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 Jan 21 2011 [...] Atrial Fibrillation Apr 13 2011 10:00AM Car Cleaner (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 Apr 13 2011 [...] 10:33AM Atrial Fibrillation Aug 11 2011 10:33AM Car Cleaner (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 Aug 11 2011 [...] 11:10AM Atrial Fibrillation Aug 16 2011 11:10AM Detention (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 Aug 16 2011 [...] 1:51PM Atrial Fibrillation Sep 08 2011 1:51PM Car Cleaner (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 Sep 08 2011 [...] 3:51PM Atrial Fibrillation Sep 21 2011 3:51PM Detention (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 Sep 21 2011 [...] 3:55PM Atrial Fibrillation Sep 29 2011 3:55PM Car Cleaner (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 Sep 29 2011 [...] 1:08PM Atrial Fibrillation Dec 16 2011 1:08PM Detention (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 Dec 16 2011 [...] 4:15PM Atrial Fibrillation Sep 6 2011 4:15PM Detention (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 Sep 6 2011 [...] 1:24PM Atrial Fibrillation Oct 16 2012 1:24PM Car Cleaner (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 Oct 16 2012 [...] Atrial Fibrillation May 07 2013 1:08PM Car Cleaner (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 May 07 2013 [...] Apr 15 2014 3:49PM Carpal tunnel syndrome b 2014 3:49PM Dysphagia b 2015 3:49PM Polymyalgia Rheumatica Feb 2015 3:49PM Vitamin deficiency Feb 4 2014 3:49PM Anxiety Feb 4 2014 3:49PM Atrial Fibrillation Feb 2014 3:49PM Chronic Obstructive Pulmonary Disease Feb 2015 3:49PM Hyperlipidemia b 2015 3:49PM hypothyroid b 2014 3:49PM Osteopenia Feb 4 2014 3:49PM Numbness and Tingling Feb 2014 3:49PM Orthostatic hypotension Sep 24 2014 1:21PM Anticoagulant long-term use Oct 04 2014 11:22AM Hypertension, Benign Essential Oct 08 2014 4:16PM Anticoagulation monitoring, INR range 2-3 Oct 18 2014 8:31AM Chest pain Nov 18 2014 2:44PM Indigestion Nov 18 2014 2:44PM Payers Insurance Name Company Name Plan Name Plan Number Policy Number Policy Group Number Start Date Medicare Part A Medicare Part A [id number] N/A [facility] [id number] N/A [employer] Equitable Life Supplement [id number] Thursday, 2013 [employer] Equitable [employer] [id number] Thursday, 2013 Medicare Part B Medicare Of [place] [id number] Wednesday, 1992 [facility] [id number] Wednesday, 2008 History of Encounters Visit Date Visit Type Provider 11/18/2014 Office visit Virginia Pollock APRN 10/08/2014 Nurse visit Jose Roberto Troy APRN 09/24/2014 Office visit Virginia Pollock RETREADER 07/17/2014 Office visit Collette Gonzales MD 04/15/2014 Office visit Collette Gonzales MD 03/07/2014 Office visit Mariano Fonseca MD 01/17/2014 Office visit Virginia Pollock RETREADER 09/18/2013 Office visit Collette Gonzales MD 06/29/2013 Office visit Jose Roberto Troy RETREADER 05/07/2013 Office visit Verónica Seya MD 03/13/2013 Hospital [facility] Monterroso MD 01/23/2013 Office visit Virginia Pollock RETREADER 11/27/2012 Office visit Virginia Pollock RETREADER 11/02/2012 Office visit Verónica Seay MD 10/16/2012 [...] Seay MD 07/08/2011 Office visit Tanya Rodriguez RETREADER 04/13/2011 Office visit Verónica Seay MD 01/21/2011 [...]
--- OUTSIDE RECORDS SUMMARY | 2017-09-30 12:27 | XMS REPORT ---
Author Eliseo Green [facility] Address [address] [place], [place] [id number] Care Team Providers Care Fresh Work Inspector Name Role Phone Eliseo Malave PCP Eliseo Malave PreferredProvider Allergies and Adverse Reactions Name Reaction Notes doxycycline hyclate hives/ vomiting Plan of Treatment Planned Activity Comments Planned Date Planned Time Plan/Goal INR (international normalized ratio) monitoring education 10/04/2014 12:00 AM Thyroid stimulating hormone (TSH) 10/16/2012 [...] TAKE ONE TABLET BY MOUTH ONCE DAILY Stool Softener oral aspirin 325 mg oral tablet take 1 tablet (325 mg) by oral route once daily Tylenol 325 mg oral tablet take 2 tablets (650 mg) by oral route every 6 hours as needed Vitamin D3 2,000 unit oral capsule take 1 capsule by oral route daily vitamin [id number] acid 500-400 mcg oral tablet take 1 tablet by oral route daily metoprolol tartrate 25 [...] Cholestyramine) Apply to affected areas as directed amoxicillin 500 mg oral capsule 06/09/2016 06/19/2016 [...] HC BMI BSA BMI Percentile O2 Sat(%) 08/09/2017 11:36:00 AM 160 mmHg 71 mmHg 73 bpm 20 rpm 97.6 F 144.187 lbs 63 in 25.54 kg/m2 1.71 m2 96 % 07/05/2017 11:09:00 AM 142 mmHg 62 mmHg 76 bpm 18 rpm 97.3 F 144.375 lbs 63 in 25.5746 kg/m 1.7061 m 96 % 01/11/2017 10:20:00 AM 132 mmHg 76 mmHg 77 bpm 18 rpm 96.3 F 146 lbs 63 in 25.86 kg/m2 1.72 m2 97 % 12/09/2016 1:33:00 PM 118 mmHg 70 mmHg 76 bpm 20 rpm 97.6 F 142.375 lbs 63 in 25.2203 kg/m 1.6943 m 95 % 06/09/2016 6:00:00 PM 132 mmHg [...] 10:48AM Atrial Fibrillation Apr 20 2010 10:48AM Reconciliation Clerk (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 Apr 20 2010 10:48AM Hypothyroidism, Acquired Apr 20 2010 10:48AM Anxiety Disorder Apr 20 2010 10:48AM Chronic Obstructive Pulmonary Disease Apr 20 2010 10:48AM Essential Hypertension May 20 2010 1:10PM Hyperlipidemia May 20 2010 1:10PM Atrial Fibrillation May 20 2010 1:10PM [facility] (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 May 20 2010 1:10PM Hypothyroidism, Acquired May 20 2010 1:10PM Anxiety Disorder May 20 2010 1:10PM Chronic Obstructive Pulmonary Disease May 20 2010 1:10PM Neuropathy May 20 2010 1:10PM Essential Hypertension Aug 21 2010 9:25AM Hyperlipidemia Aug 21 2010 9:25AM Atrial Fibrillation Aug 21 2010 9:25AM [facility] (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 Aug 21 2010 9:25AM Hypothyroidism, Acquired Aug 21 2010 9:25AM Neuropathy Aug 21 2010 9:25AM Anxiety Disorder Aug 21 2010 9:25AM Chronic Obstructive Pulmonary Disease Aug 21 2010 9:25AM Essential Hypertension Sep 07 2010 4:10PM Hyperlipidemia Sep 07 2010 4:10PM Atrial Fibrillation Sep 07 2010 4:10PM [facility] (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 Sep 07 2010 4:10PM Hypothyroidism, Acquired Sep 07 2010 4:10PM Neuropathy Sep 07 2010 4:10PM Anxiety Disorder Sep 07 2010 4:10PM Chronic Obstructive Pulmonary Disease Sep 07 2010 4:10PM Diarrhea Sep 07 2010 4:10PM Psoriasis 01/15/2016 Essential Hypertension Sep 30 2010 10:07AM Hyperlipidemia Sep 30 2010 10:07AM Atrial Fibrillation Sep 30 2010 10:07AM Reconciliation Clerk (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 Sep 30 2010 [...] 2:08PM Atrial Fibrillation Oct 05 2010 2:08PM Reconciliation Clerk (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 Oct 05 2010 [...] 2:12PM Atrial Fibrillation Oct 19 2010 2:12PM Reconciliation Clerk (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 Oct 19 2010 [...] 2:58PM Atrial Fibrillation Nov 16 2010 2:58PM Reconciliation Clerk (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 Nov 16 2010 [...] 2:04PM Atrial Fibrillation Jan 21 2011 2:04PM [facility] (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 Jan 21 2011 [...] 10:00AM Atrial Fibrillation Apr 13 2011 10:00AM [facility] (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 Apr 13 2011 [...] 10:33AM Atrial Fibrillation Aug 11 2011 10:33AM [facility] (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 Aug 11 2011 [...] 11:10AM Atrial Fibrillation Aug 16 2011 11:10AM [facility] (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 Aug 16 2011 [...] 1:51PM Atrial Fibrillation Sep 08 2011 1:51PM Reconciliation Clerk (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 Sep 08 2011 [...] 3:51PM Atrial Fibrillation Sep 21 2011 3:51PM [facility]ci (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 Sep 21 2011 [...] 3:55PM Atrial Fibrillation Sep 29 2011 3:55PM [facility] (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 Sep 29 2011 [...] 1:08PM Atrial Fibrillation Dec 16 2011 1:08PM Reconciliation Clerk (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 Dec 16 2011 [...] 4:15PM Atrial Fibrillation Sep 6 2011 4:15PM Reconciliation Clerk (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 Sep 2011 4:15PM Hypothyroidism, Acquired Sep 2011 4:15PM Myalgia Sep 6 2011 4:15PM [...] 1:24PM Atrial Fibrillation Oct 16 2012 1:24PM Reconciliation Clerk (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 Oct 16 2012 [...] 1:08PM Atrial Fibrillation May 07 2013 1:08PM Reconciliation Clerk (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 May 07 2013 [...] 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 11:43AM Payers Insurance Name Company Name Plan Name Plan Number Policy Number Policy Group Number Start Date [facility] [id number] Tuesday, 2017 Medicare Part B Medicare [place] [id number] Wednesday, 1992 [employer] [facility] [id number] Wednesday, 2008 Medicare Part A Medicare Part A [id number] N/A [employer] Equitable Life [facility] Supplement [id number] Thursday, 2013 [employer] Equ[employer] [id number] Thursday, 2013 [facility] [id number] N/A Medicare R[facility] Medicare RHC [id number] Wednesday, 1992 [employer] [id number] Tuesday, 2015 Medicare Part A Medicare - Lab/Xray [id number] N/A History of Encounters Visit Date Visit Type Provider 08/09/[address] Eliseo Malave MD 07/05/[address] Eliseo Malave MD 06/29/2017 Hospital [facility] Monterroso MD 02/11/2017 Hospital [facility]anda Monterroso MD 01/11/[address] Eliseo Malave MD 12/09/[address] Eliseo Malave MD 06/09/2016 Office visit Jose Roberto Troy APRN 04/30/2016 Procedures Prem Kim DO 04/09/[address] Eliseo Malave MD 01/15/[address] Eliseo Malave MD 11/24/[address] Eliseo Malave MD 10/03/[address] Eliseo Malave MD 09/17/2015 Office visit Jose Roberto Troy INFORMATION TECHNOLOGY ANALYST 02/06/2015 Hospital Giana Mendes MD 02/06/2015 Office visit Collette Gonzales MD 12/30/2014 Office visit Jose Roberto Troy INFORMATION TECHNOLOGY ANALYST 12/26/2014 Office visit Jose Roberto Troy INFORMATION TECHNOLOGY ANALYST 11/21/2014 [facility] Monterroso MD 11/21/2014 Office visit Collette Gonzales MD 11/18/2014 Office visit Virginia Pollock INFORMATION TECHNOLOGY ANALYST 10/08/2014 Nurse visit Jose Roberto Troy INFORMATION TECHNOLOGY ANALYST 09/24/2014 Office visit Virginia Pollock INFORMATION TECHNOLOGY ANALYST 07/17/2014 Office visit Collette Gonzales MD 04/15/2014 Office visit Collette Gonzales MD 03/07/2014 Office visit Mariano Fonseca MD 01/17/2014 Office visit Virginia Pollock INFORMATION TECHNOLOGY ANALYST 09/18/2013 Office visit Collette Gonzales MD 06/29/2013 Office visit Jose Roberto Troy INFORMATION TECHNOLOGY ANALYST 05/07/2013 Office visit Verónica Seay MD 03/13/2013 [facility] Monterroso MD 01/23/2013 Office visit Virginia Pollock INFORMATION TECHNOLOGY ANALYST 11/27/2012 Office visit Virginia Pollock INFORMATION TECHNOLOGY ANALYST 11/02/2012 Office visit Verónica Seay MD 10/16/2012 [...] Seay MD 07/08/2011 Office visit Tanya Rodriguez INFORMATION TECHNOLOGY ANALYST 04/13/2011 Office visit Verónica Seay MD 01/21/2011 [...]
--- OUTSIDE RECORDS SUMMARY | 2017-09-30 12:29 | XMS REPORT ---
Author Author Eliseo Malave [facility] Address [address] [place], [place] [id number] Care Team Providers Care Commodity Manager Name Role Phone Eliseo Malave PCP Allergies [...] oral route every 6 hours as needed cetirizine 10 mg oral tablet 01/15/2016 04/14/2016 take 1 tablet by oral route 2 times a day for 30 days alprazolam 0.25 mg oral tablet 04/07/2016 05/07/2016 take 1 tablet by oral route 2 times a for 30 days Nascimento Diaper Rash Cream 04/09/2016 (Nystatin/Zinc Oxide/Aquaphor/Antacid/ Cholestyramine) Apply to affected areas as directed Name Start Date Expiration Date SIG Comments [...] up to 4 weeks for 30 days Discontinued Name Start Date [...] HC BMI BSA BMI Percentile O2 Sat(%) 04/09/2016 10:01:00 AM 140 mmHg 78 mmHg [...] Of Immunizations Name Date Admin Mfg Name Mf Code Trade Name Lot# Route Inj Vis [...] 10:48AM Atrial Fibrillation Apr 20 2010 10:48AM 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 Apr 20 2010 10:48AM Hypothyroidism, Acquired Apr 20 2010 10:48AM Anxiety Disorder Apr 20 2010 10:48AM Chronic Obstructive Pulmonary Disease Apr 20 2010 10:48AM Essential Hypertension May 20 2010 1:10PM Hyperlipidemia May 20 2010 1:10PM Atrial Fibrillation May 20 2010 1:10PM Snf (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 May 20 2010 1:10PM Hypothyroidism, Acquired May 20 2010 1:10PM Anxiety Disorder May 20 2010 1:10PM Chronic Obstructive Pulmonary Disease May 20 2010 1:10PM Neuropathy May 20 2010 1:10PM Essential Hypertension Aug 21 2010 9:25AM Hyperlipidemia Aug 21 2010 9:25AM Atrial Fibrillation Aug 21 2010 9:25AM Snf (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 Aug 21 2010 9:25AM Hypothyroidism, Acquired Aug 21 2010 9:25AM Neuropathy Aug 21 2010 9:25AM Anxiety Disorder Aug 21 2010 9:25AM Chronic Obstructive Pulmonary Disease Aug 21 2010 9:25AM Essential Hypertension Sep 07 2010 4:10PM Hyperlipidemia Sep 07 2010 4:10PM Atrial Fibrillation Sep 07 2010 4:10PM 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 Sep 07 2010 4:10PM Hypothyroidism, Acquired Sep 07 2010 4:10PM Neuropathy Sep 07 2010 4:10PM Anxiety Disorder Sep 07 2010 4:10PM Chronic Obstructive Pulmonary Disease Sep 07 2010 4:10PM Diarrhea Sep 07 2010 4:10PM Psoriasis 01/15/2016 Essential Hypertension Sep 30 2010 10:07AM Hyperlipidemia Sep 30 2010 10:07AM Atrial Fibrillation Sep 30 2010 10:07AM Snf (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 Sep 30 2010 [...] 2:08PM Atrial Fibrillation Oct 05 2010 2:08PM 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 Oct 05 2010 [...] 2:12PM Atrial Fibrillation Oct 19 2010 2:12PM Snf (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 Oct 19 2010 [...] 2:58PM Atrial Fibrillation Nov 16 2010 2:58PM Snf (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 Nov 16 2010 [...] 2:04PM Atrial Fibrillation Jan 21 2011 2:04PM Snf (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 Jan 21 2011 [...] 10:00AM Atrial Fibrillation Apr 13 2011 10:00AM Snf (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 Apr 13 2011 [...] 10:33AM Atrial Fibrillation Aug 11 2011 10:33AM 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 Aug 11 2011 [...] 11:10AM Atrial Fibrillation Aug 16 2011 11:10AM 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 Aug 16 2011 [...] 1:51PM Atrial Fibrillation Sep 08 2011 1:51PM 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 Sep 08 2011 [...] 3:51PM Atrial Fibrillation Sep 21 2011 3:51PM Snf (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 Sep 21 2011 [...] 3:55PM Atrial Fibrillation Sep 29 2011 3:55PM 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 Sep 29 2011 [...] 1:08PM Atrial Fibrillation Dec 16 2011 1:08PM 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 Dec 16 2011 [...] 4:15PM Atrial Fibrillation Sep 6 2011 4:15PM Snf (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 Feb 17 2012 4:15PM Hypothyroidism, Acquired Sep 6 2011 4:15PM [...] 1:24PM Atrial Fibrillation Oct 16 2012 1:24PM 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 Oct 16 2012 [...] 1:08PM Atrial Fibrillation May 07 2013 1:08PM Snf (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 May 07 2013 [...] Feb 4 2014 3:49PM Polymyalgia Rheumatica Feb 2014 3:49PM [...] 10:06AM Cutaneous candidiasis Apr 09 2016 10:06AM Payers Insurance Name Company Name Plan Name Plan Number Policy Number Policy Group Number Start Date Medicare Part A Medicare [facility] [id number] N/A Equ[employer] Casualty Equitable & You [id number] Tuesday, 2015 Medicare Part A Medicare - Lab/Xray [id number] N/A Medicare Part B Medicare Of [place] [id number] Wednesday, November 11, 1992 BCBS [facility] [id number] Wednesday, September 03, 2008 Medicare Part A Medicare Part A [id number] N/A Equitable Life [employer] Casualty Equitable Life Supplement [id number] Thursday, June 13, 2013 [employer] Casualty Equitable & You [id number] Thursday, June 13, 2013 [facility] [id number] N/A History of Encounters Visit Date Visit Type Provider 04/09/[address] Eliseo Malave MD 01/15/[address] Eliseo Malave MD 11/24/[address] Eliseo Malave MD 10/03/[address] Eliseo Malave MD 09/17/2015 Office visit Jose Roberto Troy CAMPAIGN DEVELOPER 02/06/2015 Hospital Giana Mendes MD 02/06/2015 Office visit Collette Gonzales MD 12/30/2014 Office visit Jose Roberto Troy CAMPAIGN DEVELOPER 12/26/2014 Office visit Jose Roberto Troy CAMPAIGN DEVELOPER 11/21/2014 Hospital Shawanda Monterroso MD 11/21/2014 Office visit Collette Gonzales MD 11/18/2014 Office visit Virginia Pollock CAMPAIGN DEVELOPER 10/08/2014 Nurse visit Jose Roberto Troy CAMPAIGN DEVELOPER 09/24/2014 Office visit Virginia Pollock CAMPAIGN DEVELOPER 07/17/2014 Office visit Collette Gonzales MD 04/15/2014 Office visit Collette Gonzales MD 03/07/2014 Office visit Mariano Fonseca MD 01/17/2014 Office visit Virginia Pollock CAMPAIGN DEVELOPER 09/18/2013 Office visit Collette Gonzales MD 06/29/2013 Office visit Jose Roberto Troy CAMPAIGN DEVELOPER 05/07/2013 Office visit Verónica Seay MD 03/13/2013 Hospital Shawanda Monterroso MD 01/23/2013 Office visit Virginia Pollock CAMPAIGN DEVELOPER 11/27/2012 Office visit Virginia Pollock CAMPAIGN DEVELOPER 11/02/2012 Office visit Verónica Seay MD 10/16/2012 [...] Verónica Seay MD 07/08/2011 Office visit Tanya Michael CAMPAIGN DEVELOPER 04/13/2011 Office visit Verónica Seay MD 01/21/2011 Office visit Verónica Seay MD 12/01/2010 Office visit Betty FREEMAN 11/16/2010 Office visit Veórnica Seay MD 10/19/2010 Office visit Verónica Seay [...]
--- OUTSIDE RECORDS SUMMARY | 2017-09-30 12:32 | XMS REPORT ---
Author Eliseo Green [facility] Address [address] [place], [place] [id number] Care Team Providers Care Canal Tender Name Role Phone Eliseo Malave PCP Collette Gonzales PreferredProvider Allergies and Adverse [...] 1 capsule by oral route daily vitamin [id number] acid 500-400 mcg oral tablet take 1 [...] ONCE DAILY meloxicam 7.5 mg oral tablet 12/10/2016 03/10/2017 take 1 tablet (7.5 mg) by oral route once daily for 30 days alprazolam 0.25 mg oral tablet 01/08/2017 04/08/2017 take 1 tablet by oral route 2 times a day as needed for 30 days nystatin 100,000 unit/gram topical ointment 01/11/2017 01/18/2017 apply to the affected area(s) by topical route 3 times per day for 7 days Name Start Date Expiration Date SIG [...] 2 times per day for 14 days Discontinued Name Start Date Discontinued Date [...] HC BMI BSA BMI Percentile O2 Sat(%) 01/11/2017 10:20:00 AM 132 mmHg 76 mmHg [...] Reviewed Results Summary Date and Description Results 09/17/2009 11:09 AM Colonoscopy-Women [...] POCT 5.2 CALLED TO/BY REPORTED TO DR FAMILIA [id number] 11/21/2014 1:35 PM WBC 7.0 RBC 3.91 [...] NRBC% 0.0 TSH 4.240 uIU/mLFREE T4 1.14 12/09/2016 3:30 PM TSH 1.970 uIU/mLGLUCOSE 110.0 [...] 10:48AM Atrial Fibrillation Apr 20 2010 10:48AM 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 Apr 20 2010 10:48AM Hypothyroidism, Acquired Apr 20 2010 10:48AM Anxiety Disorder Apr 20 2010 10:48AM Chronic Obstructive Pulmonary Disease Apr 20 2010 10:48AM Essential Hypertension May 20 2010 1:10PM Hyperlipidemia May 20 2010 1:10PM Atrial Fibrillation May 20 2010 1:10PM 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 May 20 2010 1:10PM Hypothyroidism, Acquired May 20 2010 1:10PM Anxiety Disorder May 20 2010 1:10PM Chronic Obstructive Pulmonary Disease May 20 2010 1:10PM Neuropathy May 20 2010 1:10PM Essential Hypertension Aug 21 2010 9:25AM Hyperlipidemia Aug 21 2010 9:25AM Atrial Fibrillation Aug 21 2010 9:25AM 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 Aug 21 2010 9:25AM Hypothyroidism, Acquired Aug 21 2010 9:25AM Neuropathy Aug 21 2010 9:25AM Anxiety Disorder Aug 21 2010 9:25AM Chronic Obstructive Pulmonary Disease Aug 21 2010 9:25AM Essential Hypertension Sep 07 2010 4:10PM Hyperlipidemia Sep 07 2010 4:10PM Atrial Fibrillation Sep 07 2010 4:10PM Usp (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 Sep 07 2010 4:10PM Hypothyroidism, Acquired Sep 07 2010 4:10PM Neuropathy Sep 07 2010 4:10PM Anxiety Disorder Sep 07 2010 4:10PM Chronic Obstructive Pulmonary Disease Sep 07 2010 4:10PM Diarrhea Sep 07 2010 4:10PM Psoriasis 01/15/2016 Essential Hypertension Sep 30 2010 10:07AM Hyperlipidemia Sep 30 2010 10:07AM Atrial Fibrillation Sep 30 2010 10:07AM 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 Sep 30 2010 [...] 2:08PM Atrial Fibrillation Oct 05 2010 2:08PM Usp (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 Oct 05 2010 [...] 2:12PM Atrial Fibrillation Oct 19 2010 2:12PM Usp (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 Oct 19 2010 [...] 2:58PM Atrial Fibrillation Nov 16 2010 2:58PM 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 Nov 16 2010 [...] 2:04PM Atrial Fibrillation Jan 21 2011 2:04PM 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 Jan 21 2011 [...] 10:00AM Atrial Fibrillation Apr 13 2011 10:00AM 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 Apr 13 2011 [...] 10:33AM Atrial Fibrillation Aug 11 2011 10:33AM 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 Aug 11 [...] 11:10AM Atrial Fibrillation Aug 16 2011 11:10AM 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 Aug 16 [...] 1:51PM Atrial Fibrillation Sep 08 2011 1:51PM 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 Sep 08 [...] 3:51PM Atrial Fibrillation Sep 21 2011 3:51PM 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 Sep 21 2011 [...] 3:55PM Atrial Fibrillation Sep 29 2011 3:55PM Usp (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 Sep 29 2011 [...] 1:08PM Atrial Fibrillation Dec 16 2011 1:08PM 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 Dec 16 [...] 4:15PM Atrial Fibrillation Sep 6 2011 4:15PM Usp (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 Feb 6 2011 4:15PM Hypothyroidism, Acquired Sep 6 [...] 1:24PM Atrial Fibrillation Oct 16 2012 1:24PM 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 Oct 16 [...] 1:08PM Atrial Fibrillation May 07 2013 1:08PM 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 May 07 2013 [...] Carpal tunnel syndrome Feb 2014 3:49PM Dysphagia Feb 2014 3:49PM Polymyalgia Rheumatica Feb 4 2014 3:49PM Vitamin deficiency Feb 4 2014 3:49PM Anxiety Feb 4 2014 3:49PM Atrial Fibrillation Feb 2014 3:49PM Chronic Obstructive Pulmonary Disease Feb 2014 3:49PM Hyperlipidemia Feb 2014 3:49PM hypothyroid Feb 4 2014 3:49PM [...] 1:39PM Actinic Keratosis Jan 11 2017 10:24AM Payers Insurance Name Company Name Plan Name Plan Number Policy Number Policy Group Number Start Date Medicare [facility] Medicare RHC [id number] N/A Equ[employer]ty Equitable & You [id number] Tuesday, 2015 Medicare Part A Medicare - Lab/Xray [id number] N/A Medicare Part B Medicare Of [place] [id number] Wednesday, November 11, 1992 BCBS [facility] [id number] Wednesday, September 03, 2008 Medicare Part A Medicare Part A [id number] N/A Equitable Life [employer] Casualty Equitable Life [facility] Supplement [id number] Thursday, June 13, 2013 [employer] Equitable & You [id number] Thursday, June 13, 2013 [facility] [id number] N/A History of Encounters Visit Date Visit Type Provider 01/11/[address] Eliseo Malave MD 12/09/[address] Eliseo Malave MD 06/09/2016 Office visit Jose Roberto Troy APRN 04/30/2016 Procedures Prem Kim DO 04/09/[address] Eliseo Malave MD 01/15/[address] Eliseo Malave MD 11/24/[address] Eliseo Malave MD 10/03/[address] Eliseo Malave MD 09/17/2015 Office visit Jose Roberto Troy APRN 02/06/2015 Hospital Giana Mendes MD 02/06/2015 Office visit Collette Gonzales MD 12/30/2014 Office visit Jose Roberto Troy SR TECHNICAL SALES CONSULTANT 12/26/2014 Office visit Jose Roberto Troy APRN 11/21/2014 [facility] Shawanda Monterroso MD 11/21/2014 Office visit Collette Gonzales MD 11/18/2014 Office visit Virginia Pollock SR TECHNICAL SALES CONSULTANT 10/08/2014 Nurse visit Jose Roberto Troy SR TECHNICAL SALES CONSULTANT 09/24/2014 Office visit Virginia Pollock SR TECHNICAL SALES CONSULTANT 07/17/2014 Office visit Collette Gonzales MD 04/15/2014 Office visit Collette Gonzales MD 03/07/2014 Office visit Mariano Fonseca MD 01/17/2014 Office visit Virginia Pollock SR TECHNICAL SALES CONSULTANT 09/18/2013 Office visit Collette Gonzales MD 06/29/2013 Office visit Jose Roberto Troy APRN 05/07/2013 Office visit Verónica Seay MD 03/13/2013 [facility] Shawanda Monterroso MD 01/23/2013 Office visit Virginia Pollock APRN 11/27/2012 Office visit Virginia Pollock SR TECHNICAL SALES CONSULTANT 11/02/2012 Office visit Verónica Seay MD 10/16/2012 Office visit Verónica Seay MD 06/27/2012 Office visit Lai Sharp MD 05/10/2012 Office visit Lai Sharp MD 04/19/2012 Office visit Lai Sharp MD 02/17/2012 Office visit Verónica Seay MD 12/16/2011 Office visit Verónica Seay MD 11/05/2011 [facility] Ubaldo Monterroso MD 09/29/2011 Office visit Verónica Seay MD 09/21/2011 Office visit Verónica Seay MD 09/08/2011 Office visit Verónica Seay MD 08/16/2011 Office visit Verónica Seay MD 08/13/2011 Nurse visit Verónica Seay MD 08/12/2011 Nurse visit Verónica Seay MD 08/11/2011 Office visit Verónica Seay MD 07/08/2011 Office visit Tanya Michael SR TECHNICAL SALES CONSULTANT 04/13/2011 Office visit Verónica Seay MD 01/21/2011 [...]
--- OUTSIDE RECORDS SUMMARY | 2017-09-30 12:34 | XMS REPORT ---
Author Author Collette Gonzales Organization [facility] Address [address] [place], [place] [address] Care Team Providers Care Mosquito Sprayer Name Role Phone Collette Gonzales PCP Allergies and Adverse Reactions Name Reaction [...] Start Date Estimated Completion Date SIG Comments amlodipine 5 mg oral tablet take 1 tablet (5 mg) by oral route once daily levothyroxine 75 mcg oral tablet 05/08/2014 TAKE ONE TABLET BY MOUTH DAILY levothyroxine 75 mcg oral tablet 05/08/2014 TAKE ONE TABLET BY MOUTH DAILY prednisone 1 mg oral tablet 07/17/2014 01/08/2016 take 1tab by oral route once daily prednisone 5 mg oral tablet 07/17/2014 07/12/2015 take 1 tablet (5 mg) by oral route once daily for 90 days flecainide 100 mg oral tablet 11/21/2014 11/16/2015 take 1 tablet (100 mg) by oral route every 12 hours for 90 days Vitamin D2 50,000 unit oral capsule 11/26/2014 take 1 capsule (50,000 unit ) by oral route once weekly x 12 weeks Lyrica 75 mg oral capsule 12/19/2014 06/17/2015 take 1 capsule (75 mg) by oral route 2 times per day for 30 days alprazolam 0.25 mg oral tablet 12/30/2014 03/30/2015 [...] TAKE ONE TABLET BY MOUTH ONCE DAILY Ultram 50 mg oral tablet 02/04/2015 02/24/2015 take 1 tablet (50 mg) by oral route every 4 hours as needed for 20 days Called this into , spoke with Ant. levothyroxine 75 mcg oral tablet 02/05/2015 TAKE [...] CAPSULE BY MOUTH THREE TIMES DAILY losartan 25 mg oral tablet 04/15/2014 08/13/2014 [...] BY MOUTH DAILY for 30 days warfarin 1 mg oral tablet 10/11/2014 11/10/2014 take 1 tablet by oral route three x per week warfarin 5 mg oral tablet 11/05/2014 12/05/2014 take 1 tablet (5 mg) by oral route once daily for 30 days Zofran (as hydrochloride) 4 mg oral tablet 11/21/2014 12/05/2014 take 1 tab PO PRN q6 hrs. Augmentin 500-125 mg oral tablet 11/26/2014 12/01/2014 take 1 tablet by oral route 2 times a day for 5 days hydrocodone-acetaminophen 5-325 mg oral tablet 12/16/2014 01/15/2015 take 1 tablet by oral route every 6 hours as needed for pain for 30 days vitamin K oral 2.5 mg oral tablet 12/27/2014 12/28/2014 take 1 tablet by oral route QD for 1 day Discontinued Name Start Date Discontinued Date SIG [...] days warfarin 5 mg oral tablet 10/04/2014 Problem List Description Status Onset Anxiety [...] HC BMI BSA BMI Percentile O2 Sat(%) 02/06/2015 5:21:00 PM 110 mmHg 50 mmHg [...] F 160 lbs 65 in 26.63 kg/m2 1.8244 m 04/19/2012 1:57:00 PM 112 mmHg 58 mmHg 88 bpm 18 rpm 97.4 F 165 lbs 65 in 27.4572 kg/m 1.85 m2 02/17/2012 4:11:00 PM 138 mmHg [...] F 171.25 lbs 65 in 28.50 kg/m2 1.8874 m 91 % 07/08/2011 1:32:00 PM 138 mmHg 74 mmHg 68 bpm 18 rpm 96.6 F 176.5 lbs 65 in 29.3708 kg/m 1.92 m2 04/13/2011 10:01:00 AM 138 mmHg [...] F 169 lbs 65 in 28.1228 kg/m 1.87 m2 Social History Name Description Comments [...] PM PROTIME POCT 18.10 secsINR POCT 1.5 History Of Immunizations Name Date Admin Mfg Name Mfg Code Trade Name Lot# Route Inj Vis Given Vis Pub CVX Influenza 04/01/2011 Not Entered NE Not Entered Not Entered Not Entered 04/01/2011 06/13/2015 141 History of Past Illness Name Date of Onset Comments Hypertension Anxiety hypothyroid Hyperlipidemia Atrial Fibrillation Chronic Obstructive Pulmonary Disease Rhinitis, Allergic Sep 17 2009 11:11AM Chronic Obstructive Pulmonary Disease Apr 7 2010 11:11AM Skin lesion, non-healing:face, trunk, extremities Sep [...] 10:48AM Atrial Fibrillation Apr 20 2010 10:48AM Chcf (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 Apr 20 2010 10:48AM Hypothyroidism, Acquired Apr 20 2010 10:48AM Anxiety Disorder Apr 20 2010 10:48AM Chronic Obstructive Pulmonary Disease Apr 20 2010 10:48AM Essential Hypertension May 20 2010 1:10PM Hyperlipidemia May 20 2010 1:10PM Atrial Fibrillation May 20 2010 1:10PM Submarine 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 May 20 2010 1:10PM Hypothyroidism, Acquired May 20 2010 1:10PM Anxiety Disorder May 20 2010 1:10PM Chronic Obstructive Pulmonary Disease May 20 2010 1:10PM Neuropathy May 20 2010 1:10PM Essential Hypertension Aug 21 2010 9:25AM Hyperlipidemia Aug 21 2010 9:25AM Atrial Fibrillation Aug 21 2010 9:25AM Chcf (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 Aug 21 2010 9:25AM Hypothyroidism, Acquired Aug 21 2010 9:25AM Neuropathy Aug 21 2010 9:25AM Anxiety Disorder Aug 21 2010 9:25AM Chronic Obstructive Pulmonary Disease Aug 21 2010 9:25AM Essential Hypertension Sep 07 2010 4:10PM Hyperlipidemia Sep 07 2010 4:10PM Atrial Fibrillation Sep 07 2010 4:10PM Chcf (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 Sep 07 2010 4:10PM Hypothyroidism, Acquired Sep 07 2010 4:10PM Neuropathy Sep 07 2010 4:10PM Anxiety Disorder Sep 07 2010 4:10PM Chronic Obstructive Pulmonary Disease Sep 07 2010 4:10PM Diarrhea Sep 07 2010 4:10PM Essential Hypertension Sep 30 2010 10:07AM Hyperlipidemia Sep 30 2010 10:07AM Atrial Fibrillation Sep 30 2010 10:07AM Chcf (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 Sep 30 2010 [...] 2:08PM Atrial Fibrillation Oct 05 2010 2:08PM Submarine 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 Oct 05 [...] 2:12PM Atrial Fibrillation Oct 19 2010 2:12PM Chcf (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 Oct 19 2010 [...] 2:58PM Atrial Fibrillation Nov 16 2010 2:58PM Chcf (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 Nov 16 2010 [...] 2:04PM Atrial Fibrillation Jan 21 2011 2:04PM Chcf (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 Jan 21 2011 [...] 10:00AM Atrial Fibrillation Apr 13 2011 10:00AM Chcf (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 Apr 13 2011 [...] 10:33AM Atrial Fibrillation Aug 11 2011 10:33AM Submarine 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 Aug 11 [...] 11:10AM Atrial Fibrillation Aug 16 2011 11:10AM Submarine 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 Aug 16 [...] 1:51PM Atrial Fibrillation Sep 08 2011 1:51PM Chcf (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 Sep 08 2011 [...] 3:51PM Atrial Fibrillation Sep 21 2011 3:51PM Chcf (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 Sep 21 2011 [...] 3:55PM Atrial Fibrillation Sep 29 2011 3:55PM Submarine 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 Sep 29 [...] 1:08PM Atrial Fibrillation Dec 16 2011 1:08PM Submarine 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 Dec 16 [...] 4:15PM Atrial Fibrillation Sep 6 2011 4:15PM Chcf (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 Sep 6 2011 [...] 1:24PM Atrial Fibrillation Oct 16 2012 1:24PM Submarine 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 Oct 16 [...] 1:08PM Atrial Fibrillation May 07 2013 1:08PM Chcf (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 May 07 2013 [...] Rheumatica Jul 17 2014 3:49PM Vitamin deficiency b 2014 3:49PM Anxiety b 4 2014 3:49PM Atrial Fibrillation Jul 17 2014 3:49PM Chronic Obstructive Pulmonary Disease Jul 17 2014 3:49PM Hyperlipidemia b 2015 3:49PM hypothyroid Jul 17 2014 3:49PM Osteopenia [...] (urinary tract infection) Feb 06 2015 5:34PM Payers Insurance Name Company Name Plan Name Plan Number Policy Number Policy Group Number Start Date [facility] [id number] N/A Medicare Part B Medicare [facility] [id number] Wednesday, 1992 [facility] [id number] Wednesday, 2008 Medicare Part A Medicare Part A [id number] N/A Equitable Life [employer] Casualty Equitable Life [employer] Supplement [id number] Thursday, 2013 Equ[employer] Casualty Equitable & You [id number] Thursday, 2013 History of Encounters Visit Date Visit Type Provider 02/06/2015 Office visit Coleltte Gonzales MD 12/30/2014 Office visit Jose Roberto Troy AUTO TRANSPORT DRIVER 12/26/2014 Office visit Jose Roberto Troy APRN 11/21/2014 Office visit Collette Gonzales MD 11/18/2014 Office visit Virginia Pollock AUTO TRANSPORT DRIVER 10/08/2014 Nurse visit Jose Roberto Troy AUTO TRANSPORT DRIVER 09/24/2014 Office visit Virginia Pollock AUTO TRANSPORT DRIVER 07/17/2014 Office visit Collette Gonzales MD 04/15/2014 Office visit Collette Gonzales MD 03/07/2014 Office visit Mariano Fonseca MD 01/17/2014 Office visit Virginia Pollock AUTO TRANSPORT DRIVER 09/18/2013 Office visit Collette Gonzales MD 06/29/2013 Office visit Jose Roberto Troy APRN 05/07/2013 Office visit Verónica Seay MD 03/13/2013 [facility] Shawanda Monterroso MD 01/23/2013 Office visit Virginia Pollock AUTO TRANSPORT DRIVER 11/27/2012 Office visit Virginia Pollock AUTO TRANSPORT DRIVER 11/02/2012 Office visit Verónica Seay MD 10/16/2012 Office visit Verónica Seay MD 06/27/2012 Office visit Lai Sharp MD 05/10/2012 Office visit Lai Sharp MD 04/19/2012 Office visit Lai Sharp MD 02/17/2012 Office visit Verónica Seay MD 12/16/2011 Office visit Verónica Seay MD 11/05/2011 [facility] Shawanda Monterroso MD 09/29/2011 Office visit Verónica Seay MD 09/21/2011 Office visit Verónica Seay MD 09/08/2011 Office visit Verónica Seay MD 08/16/2011 Office visit Verónica Seay MD 08/13/2011 Nurse visit Verónica Seay MD 08/12/2011 Nurse visit Verónica Seay MD 08/11/2011 Office visit Verónica Seay MD 07/08/2011 Office visit Tanya Rodriguez TIMMY 04/13/2011 Office visit Verónica Seay MD 01/21/2011 Office visit Verónica Seay MD 12/01/2010 Office visit Betty FREEMAN 11/16/2010 Office visit Verónica Seay MD 10/19/2010 Office visit Verónica Saey MD 10/05/2010 Office visit Verónica Seay MD 09/30/2010 Office visit Verónica Seay MD 09/07/2010 Office visit Verónica Seay MD 08/21/2010 Office visit Verónica Seay MD 05/20/2010 Office visit Verónica Seay MD 04/20/2010 Office visit Verónica Seay MD 09/17/2009 Office visit Verónica Seay MD 03/19/2009 Office visit Verónica Seay MD 03/04/2009 Office visit Verónica Seay MD
--- OUTSIDE RECORDS SUMMARY | 2017-09-30 12:35 | XMS REPORT ---
Author Author [facility] Organization [facility] Address [address] [place], [place] [id number] Care Team Providers Care First Officer Name Role Phone PCP Unavailable Allergies and [...] CHEST X-RAY 2VW FRONTAL&LATL 11/18/2014 12:00 AM COMPLETE CBC W/AUTO DIFF WBC 11/21/2014 12:00 AM COMPREHEN METABOLIC PANEL 11/21/2014 12:00 AM VITAMIN B-12 11/21/2014 12:00 AM URINALYSIS AUTO W/SCOPE 11/21/2014 12:00 AM ASSAY THYROID STIM HORMONE 11/21/2014 12:00 AM VIT D 1 25-DIHYDROXY 11/21/2014 12:00 AM CHEST X-RAY 2VW FRONTAL&LATL 11/21/2014 12:00 AM Medications Active Name Start Date Estimated Completion Date SIG Comments pravastatin oral tablet 40 mg 01/11/2014 01/06/2015 [...] TAKE ONE TABLET BY MOUTH ONCE DAILY Zofran (as hydrochloride) oral tablet 4 mg 11/21/2014 12/05/2014 take 1 tab PO PRN q6 hrs. flecainide oral tablet 100 mg 11/21/2014 11/16/2015 take 1 tablet (100 mg) by oral route every 12 hours for 90 days Name Start Date Expiration Date SIG [...] mg 07/17/2014 1/2 tablet on mon and thurs and 1 tablet all other days Metoprolol [...] HC BMI BSA BMI Percentile O2 Sat(%) 11/21/2014 11:29:00 AM 134 mmHg 64 mmHg [...] PM PROTIME POCT 62.80 secsINR POCT 5.2 History Of Immunizations Name Date Admin Mfg [...] 1:10PM Atrial Fibrillation May 20 2010 1:10PM Detention (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 May 20 2010 1:10PM Hypothyroidism, Acquired May 20 2010 1:10PM Anxiety Disorder May 20 2010 1:10PM Chronic Obstructive Pulmonary Disease May 20 2010 1:10PM Neuropathy May 20 2010 1:10PM Essential Hypertension Aug 21 2010 9:25AM Hyperlipidemia Aug 21 2010 9:25AM Atrial Fibrillation Aug 21 2010 9:25AM Telecasting Technician (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 Aug 21 2010 9:25AM Hypothyroidism, Acquired Aug 21 2010 9:25AM Neuropathy Aug 21 2010 9:25AM Anxiety Disorder Aug 21 2010 9:25AM Chronic Obstructive Pulmonary Disease Aug 21 2010 9:25AM Essential Hypertension Sep 07 2010 4:10PM Hyperlipidemia Sep 07 2010 4:10PM Atrial Fibrillation Sep 07 2010 4:10PM Telecasting Technician (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 Sep 07 2010 4:10PM Hypothyroidism, Acquired Sep 07 2010 4:10PM Neuropathy Sep 07 2010 4:10PM Anxiety Disorder Sep 07 2010 4:10PM Chronic Obstructive Pulmonary Disease Sep 07 2010 4:10PM Diarrhea Sep 07 2010 4:10PM Essential Hypertension Sep 30 2010 10:07AM Hyperlipidemia Sep 30 2010 10:07AM Atrial Fibrillation Sep 30 2010 10:07AM Telecasting Technician (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 Sep 30 2010 [...] 2:08PM Atrial Fibrillation Oct 05 2010 2:08PM Telecasting Technician (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 Oct 05 2010 [...] 2:12PM Atrial Fibrillation Oct 19 2010 2:12PM Telecasting Technician (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 Oct 19 2010 [...] 2:04PM Atrial Fibrillation Jan 21 2011 2:04PM Detention (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 Jan 21 2011 [...] 10:00AM Atrial Fibrillation Apr 13 2011 10:00AM Telecasting Technician (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 Apr 13 2011 [...] 10:33AM Atrial Fibrillation Aug 11 2011 10:33AM Detention (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 Aug 11 2011 [...] 1:51PM Atrial Fibrillation Sep 08 2011 1:51PM Detention (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 Sep 08 2011 [...] 3:51PM Atrial Fibrillation Sep 21 2011 3:51PM Telecasting Technician (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 Sep 21 2011 [...] 3:55PM Atrial Fibrillation Sep 29 2011 3:55PM Telecasting Technician (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 Sep 29 2011 [...] 1:08PM Atrial Fibrillation Dec 16 2011 1:08PM Telecasting Technician (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 Dec 16 2011 [...] Hyperlipidemia Feb 17 2012 4:15PM Atrial Fibrillation Sep 6 2011 4:15PM Detention (Current) Use Of Anticoagulants Feb 6 2011 [...] 1:24PM Atrial Fibrillation Oct 16 2012 1:24PM Detention (Current) Use Of Anticoagulants Oct 16 2012 [...] 1:08PM Atrial Fibrillation May 07 2013 1:08PM Telecasting Technician (Current) Use Of Anticoagulants May 07 2013 [...] of gradual onset Nov 21 2014 11:33AM Payers Insurance Name Company Name Plan Name Plan Number Policy Number Policy Group Number Start Date Medicare Part A Medicare Part A [id number] N/A [facility] [id number] N/A [employer] Equitable Life Supplement [id number] Thursday, 2013 [employer] Equitable & You [id number] Thursday, 2013 Medicare Part B Medicare Of [place] [id number] Wednesday, 1992 [facility] [id number] Wednesday, 2008 History of Encounters Visit Date Visit Type Provider 11/21/2014 Office visit Collette Gonzales MD 11/18/2014 Office visit Virginia Pollock CHILD WELFARE DIRECTOR 10/08/2014 Nurse visit Jose Roberto Troy CHILD WELFARE DIRECTOR 09/24/2014 Office visit Virginia Pollock CHILD WELFARE DIRECTOR 07/17/2014 Office visit Collette Gonzales MD 04/15/2014 Office visit Collette Gonzales MD 03/07/2014 Office visit Mariano Fonseca MD 01/17/2014 Office visit Virginia Pollock CHILD WELFARE DIRECTOR 09/18/2013 Office visit Collette Gonzales MD 06/29/2013 Office visit Jose Roberto Troy APRN 05/07/2013 Office visit Verónica Seay MD 03/13/2013 Hospital Shawanda Monterroso MD 01/23/2013 Office visit Virginia Pollock CHILD WELFARE DIRECTOR 11/27/2012 Office visit Virginia Pollock CHILD WELFARE DIRECTOR 11/02/2012 Office visit Verónica Seay MD 10/16/2012 [...] Seay MD 07/08/2011 Office visit Tanya Rodriguez CHILD WELFARE DIRECTOR 04/13/2011 Office visit Verónica Seay MD 01/21/2011 Office visit Verónica Seay MD 12/01/2010 Office visit Betty FREEMAN 11/16/2010 Office visit Verónica Seay MD 10/19/2010 Office visit Verónica Seay MD 10/05/2010 Office visit Verónica Seay MD 09/30/2010 Office visit Verónica Seay MD 09/07/2010 Office visit Verónica Seay MD 08/21/2010 Office visit Verónica Seay MD 05/20/2010 Office visit Verónica Seay MD 04/20/2010 Office visit Verónica Seya MD 09/17/2009 Office visit Verónica Seay MD 03/19/2009 Office visit Verónica Seay MD 03/04/2009 Office visit Verónica Seay MD
--- OUTSIDE RECORDS SUMMARY | 2017-09-30 12:38 | XMS REPORT ---
Author Eliseo Green [facility] Address [address] [place], [place] [address] Care Team Providers Care Chicken And Fish Butcher Name Role Phone Eliseo Malave PCP Eliseo [...] 1 capsule by oral route daily vitamin [id number] acid 500-400 mcg oral tablet take 1 [...] 10:48AM Atrial Fibrillation Apr 20 2010 10:48AM Rotary Adjuster (Current) Use Of Anticoagulants Apr 20 2010 10:48AM Hypothyroidism, Acquired Apr 20 2010 10:48AM Anxiety Disorder Apr 20 2010 10:48AM Chronic Obstructive Pulmonary Disease Apr 20 2010 10:48AM Essential Hypertension May 20 2010 1:10PM Hyperlipidemia May 20 2010 1:10PM Atrial Fibrillation May 20 2010 1:10PM Residential (Current) Use Of Anticoagulants May 20 2010 1:10PM Hypothyroidism, Acquired May 20 2010 1:10PM Anxiety Disorder May 20 2010 1:10PM Chronic Obstructive Pulmonary Disease May 20 2010 1:10PM Neuropathy May 20 2010 1:10PM Essential Hypertension Aug 21 2010 9:25AM Hyperlipidemia Aug 21 2010 9:25AM Atrial Fibrillation Aug 21 2010 9:25AM Residential (Current) Use Of Anticoagulants Aug 21 2010 9:25AM Hypothyroidism, Acquired Aug 21 2010 9:25AM Neuropathy Aug 21 2010 9:25AM Anxiety Disorder Aug 21 2010 9:25AM Chronic Obstructive Pulmonary Disease Aug 21 2010 9:25AM Essential Hypertension Sep 07 2010 4:10PM Hyperlipidemia Sep 07 2010 4:10PM Atrial Fibrillation Sep 07 2010 4:10PM Residential (Current) Use Of Anticoagulants Sep 07 2010 4:10PM Hypothyroidism, Acquired Sep 07 2010 4:10PM Neuropathy Sep 07 2010 4:10PM Anxiety Disorder Sep 07 2010 4:10PM Chronic Obstructive Pulmonary Disease Sep 07 2010 4:10PM Diarrhea Sep 07 2010 4:10PM Psoriasis 01/15/2016 Essential Hypertension Sep 30 2010 10:07AM Hyperlipidemia Sep 30 2010 10:07AM Atrial Fibrillation Sep 30 2010 10:07AM Rotary Adjuster (Current) Use Of Anticoagulants Sep 30 2010 [...] 2:08PM Atrial Fibrillation Oct 05 2010 2:08PM Rotary Adjuster (Current) Use Of Anticoagulants Oct 05 2010 [...] 2:12PM Atrial Fibrillation Oct 19 2010 2:12PM Rotary Adjuster (Current) Use Of Anticoagulants Oct 19 2010 [...] 2:58PM Atrial Fibrillation Nov 16 2010 2:58PM Rotary Adjuster (Current) Use Of Anticoagulants Nov 16 2010 [...] 2:04PM Atrial Fibrillation Jan 21 2011 2:04PM Residential (Current) Use Of Anticoagulants Jan 21 2011 [...] 10:00AM Atrial Fibrillation Apr 13 2011 10:00AM Residential (Current) Use Of Anticoagulants Apr 13 2011 [...] 10:33AM Atrial Fibrillation Aug 11 2011 10:33AM Residential (Current) Use Of Anticoagulants Aug 11 2011 [...] 11:10AM Atrial Fibrillation Aug 16 2011 11:10AM Residential (Current) Use Of Anticoagulants Aug 16 2011 [...] 1:51PM Atrial Fibrillation Sep 08 2011 1:51PM Rotary Adjuster (Current) Use Of Anticoagulants Sep 08 2011 [...] 3:51PM Atrial Fibrillation Sep 21 2011 3:51PM Residential (Current) Use Of Anticoagulants Sep 21 2011 [...] 3:55PM Atrial Fibrillation Sep 29 2011 3:55PM Residential (Current) Use Of Anticoagulants Sep 29 2011 [...] 1:08PM Atrial Fibrillation Dec 16 2011 1:08PM Rotary Adjuster (Current) Use Of Anticoagulants Dec 16 2011 [...] 4:15PM Atrial Fibrillation Sep 6 2011 4:15PM Rotary Adjuster (Current) Use Of Anticoagulants Sep 2011 4:15PM [...] 1:24PM Atrial Fibrillation Oct 16 2012 1:24PM Rotary Adjuster (Current) Use Of Anticoagulants Oct 16 2012 [...] 1:08PM Atrial Fibrillation May 07 2013 1:08PM Rotary Adjuster (Current) Use Of Anticoagulants May 07 2013 [...] Policy Number Policy Group Number Start Date [facility] [id number] Tuesday, 2017 Medicare Part B Medicare [place] [id number] Wednesday, 1992 BCBS [facility] [id number] Wednesday, 2008 Medicare Part A Medicare Part A [id number] N/A [employer] Equitable Life [facility] Supplement [id number] Thursday, 2013 [employer] Equitable & [employer] [id number] Thursday, 2013 [facility] [id number] N/A Medicare RHC Medicare RHC [id number] Wednesday, 1992 [employer] Equitable [employer] You [id number] Tuesday, 2015 Medicare Part A Medicare - Lab/Xray [id number] N/A History of Encounters Visit Date Visit [...] MD 09/17/2015 Office visit Jose Roberto Troy GAS PUMPING STATION HELPER 02/06/2015 Hospital Giana Mendes MD 02/06/2015 Office visit Collette Gonzales MD 12/30/2014 Office visit Jose Roberto Troy GAS PUMPING STATION HELPER 12/26/2014 Office visit Jose Roberto Troy GAS PUMPING STATION HELPER 11/21/2014 Hospital Shawanda Monterroso MD 11/21/2014 Office visit Collette Gonzales MD 11/18/2014 Office visit Virginia Pollock GAS PUMPING STATION HELPER 10/08/2014 Nurse visit Jose Roberto Troy GAS PUMPING STATION HELPER 09/24/2014 Office visit Virginia Pollock GAS PUMPING STATION HELPER 07/17/2014 Office visit Collette Gonzales MD 04/15/2014 Office visit Collette Gonzales MD 03/07/2014 Office visit Mariano Fonseca MD 01/17/2014 Office visit Virginia Pollock GAS PUMPING STATION HELPER 09/18/2013 Office visit Collette Gonzales MD 06/29/2013 Office visit Jose Roberto Troy GAS PUMPING STATION HELPER 05/07/2013 Office visit Verónica Seay MD 03/13/2013 [facility] Shawanda Monterroso MD 01/23/2013 Office visit Virginia Pollock GAS PUMPING STATION HELPER 11/27/2012 Office visit Virginia Pollock GAS PUMPING STATION HELPER 11/02/2012 Office visit Verónica Seay MD 10/16/2012 [...] Seay MD 07/08/2011 Office visit Tanya Rodriguez GAS PUMPING STATION HELPER 04/13/2011 Office visit Verónica Seay MD 01/21/2011 [...]
--- OUTSIDE RECORDS SUMMARY | 2017-09-30 12:39 | XMS REPORT ---
Author Author Giana Mendes [facility] Address [address] [place], [place] [address] Care Team Providers Care Skating Rink Ice Maker Name Role Phone Giana Mendes PCP Unavailable Allergies and Adverse Reactions Name Reaction Notes doxycycline hyclate hives/ vomiting Plan of Treatment Planned Activity Comments Planned Date Planned Time Plan/Goal URINALYSIS AUTO W/O SCOPE 08/25/2015 12:00 AM ASSAY THYROID STIM HORMONE 10/16/2012 12:00 AM [...] take 1tab by oral route once daily flecainide 100 mg oral tablet 11/21/2014 11/16/2015 take 1 tablet (100 mg) by oral route every 12 hours for 90 days Vitamin D2 50,000 unit oral capsule 11/26/2014 take 1 capsule (50,000 unit ) by oral route once weekly x 12 weeks warfarin 5 mg oral tablet 01/08/2015 take [...] BY MOUTH DAILY for 30 days prednisone 5 mg oral tablet 07/17/2014 07/12/2015 [...] 2 times a day for 90 days Ultram 50 mg oral tablet 02/04/2015 02/24/2015 take 1 tablet (50 mg) by oral route every 4 hours as needed for 20 days Called this into , spoke with Ant. Discontinued Name Start Date Discontinued Date SIG Comments warfarin 5 mg oral tablet 07/17/2014 1/2 tablet on mon and th and 1 tablet all other days metoprolol [...] 10:48AM Atrial Fibrillation Apr 20 2010 10:48AM [facility] (Current) Use Of Anticoagulants Apr 20 2010 10:48AM Hypothyroidism, Acquired Apr 20 2010 10:48AM Anxiety Disorder Apr 20 2010 10:48AM Chronic Obstructive Pulmonary Disease Apr 20 2010 10:48AM Essential Hypertension May 20 2010 1:10PM Hyperlipidemia May 20 2010 1:10PM Atrial Fibrillation May 20 2010 1:10PM [facility] (Current) Use Of Anticoagulants May 20 2010 1:10PM Hypothyroidism, Acquired May 20 2010 1:10PM Anxiety Disorder May 20 2010 1:10PM Chronic Obstructive Pulmonary Disease May 20 2010 1:10PM Neuropathy May 20 2010 1:10PM Essential Hypertension Aug 21 2010 9:25AM Hyperlipidemia Aug 21 2010 9:25AM Atrial Fibrillation Aug 21 2010 9:25AM [facility] (Current) Use Of Anticoagulants Aug 21 2010 9:25AM Hypothyroidism, Acquired Aug 21 2010 9:25AM Neuropathy Aug 21 2010 9:25AM Anxiety Disorder Aug 21 2010 9:25AM Chronic Obstructive Pulmonary Disease Aug 21 2010 9:25AM Essential Hypertension Sep 07 2010 4:10PM Hyperlipidemia Sep 07 2010 4:10PM Atrial Fibrillation Sep 07 2010 4:10PM [facility] (Current) Use Of Anticoagulants Sep 07 2010 4:10PM Hypothyroidism, Acquired Sep 07 2010 4:10PM Neuropathy Sep 07 2010 4:10PM Anxiety Disorder Sep 07 2010 4:10PM Chronic Obstructive Pulmonary Disease Sep 07 2010 4:10PM Diarrhea Sep 07 2010 4:10PM Essential Hypertension Sep 30 2010 10:07AM Hyperlipidemia Sep 30 2010 10:07AM Atrial Fibrillation Sep 30 2010 10:07AM [facility] (Current) Use Of Anticoagulants Sep 30 2010 [...] 2:08PM Atrial Fibrillation Oct 05 2010 2:08PM [facility] (Current) Use Of Anticoagulants Oct 05 2010 [...] 2:12PM Atrial Fibrillation Oct 19 2010 2:12PM Equipment Operator Wage Hand (Current) Use Of Anticoagulants Oct 19 2010 [...] 2:58PM Atrial Fibrillation Nov 16 2010 2:58PM Equipment Operator Wage Hand (Current) Use Of Anticoagulants Nov 16 2010 [...] 2:04PM Atrial Fibrillation Jan 21 2011 2:04PM Equipment Operator Wage Hand (Current) Use Of Anticoagulants Jan 21 2011 [...] 10:00AM Atrial Fibrillation Apr 13 2011 10:00AM [facility] (Current) Use Of Anticoagulants Apr 13 2011 [...] 10:33AM Atrial Fibrillation Aug 11 2011 10:33AM [facility] (Current) Use Of Anticoagulants Aug 11 2011 [...] 11:10AM Atrial Fibrillation Aug 16 2011 11:10AM Equipment Operator Wage Hand (Current) Use Of Anticoagulants Aug 16 2011 [...] 1:51PM Atrial Fibrillation Sep 08 2011 1:51PM Equipment Operator Wage Hand (Current) Use Of Anticoagulants Sep 08 2011 [...] 3:51PM Atrial Fibrillation Sep 21 2011 3:51PM [facility] (Current) Use Of Anticoagulants Sep 21 2011 [...] 3:55PM Atrial Fibrillation Sep 29 2011 3:55PM Equipment Operator Wage Hand (Current) Use Of Anticoagulants Sep 29 2011 [...] 1:08PM Atrial Fibrillation Dec 16 2011 1:08PM [facility] (Current) Use Of Anticoagulants Dec 16 2011 [...] 4:15PM Atrial Fibrillation Sep 6 2011 4:15PM Equipment Operator Wage Hand (Current) Use Of Anticoagulants Feb 6 2011 [...] 1:24PM Atrial Fibrillation Oct 16 2012 1:24PM [facility] (Current) Use Of Anticoagulants Oct 16 2012 [...] 1:08PM Atrial Fibrillation May 07 2013 1:08PM Equipment Operator Wage Hand (Current) Use Of Anticoagulants May 07 2013 [...] Vitamin deficiency Jul 17 2014 3:49PM Anxiety Jul 17 2014 3:49PM Atrial Fibrillation Jul 17 2014 3:49PM Chronic Obstructive Pulmonary Disease Jul 17 2014 3:49PM Hyperlipidemia Jul 17 2014 3:49PM hypothyroid Jul 17 2014 3:49PM [...] 2015 5:34PM Dysuria Aug 25 2015 11:41AM Payers Insurance Name Company Name Plan Name Plan Number Policy Number Policy Group Number Start Date [facility] [id number] N/A Medicare Part B Medicare [place] [id number] Wednesday, 1992 [facility] [id number] Wednesday, 2008 Medicare Part A Medicare Part A [id number] N/A [employer] Equitable Life [place] Supplement [id number] Thursday, 2013 [employer] Equitable & You [id number] Thursday, 2013 History of Encounters Visit Date Visit Type Provider 02/06/2015 Hospital Giana Mendes MD 02/06/2015 Office visit Collette Gonzales MD 12/30/2014 Office visit Jose Roberto Troy CHIEF GAUGER 12/26/2014 Office visit Jose Roberto Troy CHIEF GAUGER 11/21/2014 Hospital Shawanda Monterroso MD 11/21/2014 Office visit Collette Gonzales MD 11/18/2014 Office visit Virginia Pollock CHIEF GAUGER 10/08/2014 Nurse visit Jose Roberto Troy CHIEF GAUGER 09/24/2014 Office visit Virginia Pollock APRN 07/17/2014 Office visit Collette Gonzales MD 04/15/2014 Office visit Collette Gonzales MD 03/07/2014 Office visit Mariano Fonseca MD 01/17/2014 Office visit Virginia Pollock CHIEF GAUGER 09/18/2013 Office visit Collette Gonzales MD 06/29/2013 Office visit Jose Roberto Troy APRN 05/07/2013 Office visit Verónica Seay MD 03/13/2013 [facility] Shawanda Monterroso MD 01/23/2013 Office visit Virginia Pollock APRN 11/27/2012 Office visit Virginia Pollock CHIEF GAUGER 11/02/2012 Office visit Verónica Seay MD 10/16/2012 Office visit Verónica Seay MD 06/27/2012 Office visit Lai Sharp MD 05/10/2012 Office visit Lai Sharp MD 04/19/2012 Office visit Lai Sharp MD 02/17/2012 Office visit Verónica Seay MD 12/16/2011 Office visit Verónica Seay MD 11/05/2011 [facility] Ubaldo Monterroso MD 09/29/2011 Office visit Verónica Seay MD 09/21/2011 Office visit Verónica Seay MD 09/08/2011 Office visit Verónica Seay MD 08/16/2011 Office visit Verónica Seay MD 08/13/2011 Nurse visit Verónica Seay MD 08/12/2011 Nurse visit Verónica Seay MD 08/11/2011 Office visit Verónica Seay MD 07/08/2011 Office visit Tanya Rodriguez CHIEF GAUGER 04/13/2011 Office visit Verónica Seay MD 01/21/2011 [...]
[2017-09-30 12:40] LABS: BASOPHILS # (AUTO) 0.1 10^3/uL (0.0-0.1); BASOPHILS % (AUTO) 1 % (0-10); EOSINOPHILS # (AUTO) 0.3 10^3/uL (0.0-0.3); EOSINOPHILS % (AUTO) 4 % (0-10); HEMATOCRIT 36 % (35-52); HEMOGLOBIN 11.2 G/DL (11.5-16.0); LYMPHOCYTES # (AUTO) 1.8 X 10^3 (1.0-4.0); LYMPHOCYTES % (AUTO) 23 % (12-44); MEAN CORPUSCULAR HEMOGLOBIN 30 PG (25-34); MEAN CORPUSCULAR HGB CONC 31 G/DL (32-36); MEAN CORPUSCULAR VOLUME 97 FL (80-99); MEAN PLATELET VOLUME 10.6 FL (7.4-10.4); MONOCYTES % (AUTO) 14 % (0-12); NEUTROPHILS # (AUTO) 4.4 X 10^3 (1.8-7.8); NEUTROPHILS % (AUTO) 59 % (42-75); PLATELET COUNT 242 10^3/uL (130-400); RED BLOOD COUNT 3.69 10^6/uL (4.35-5.85); RED CELL DISTRIBUTION WIDTH 14.9 % (10.0-14.5); WHITE BLOOD COUNT 7.6 10^3/uL (4.3-11.0)
[2017-09-30 12:41] LABS: BILIRUBIN,URINE NEGATIVE (NEGATIVE); CLARITY,URINE CLEAR; COLOR,URINE YELLOW; GLUCOSE, URINE (UA) NEGATIVE (NEGATIVE); KETONES,URINE NEGATIVE (NEGATIVE); LEUKOCYTE ESTERASE ,URINE 2+ (NEGATIVE); NITRITE,URINE NEGATIVE (NEGATIVE); PH,URINE 5 (5-9); PROTEIN,URINE 1+ (NEGATIVE); UROBILINOGEN,URINE NORMAL (NORMAL)
--- OUTSIDE RECORDS SUMMARY | 2017-09-30 12:42 | XMS REPORT ---
Author Author Kelvin Desouza Organization [facility] Address [address] [place], [place] [id number] Care Team Providers Care Home Energy Auditor Name Role Phone Kelvin Desouza PCP Eliseo [...] take 1 capsule by oral route daily pravastatin 40 mg oral tablet 09/14/2016 TAKE ONE TABLET BY MOUTH ONCE DAILY meloxicam 7.5 mg oral tablet 05/11/2017 take 1 tablet (7.5 mg) by oral route once daily for 90 days Pennsaid 2 % topical solution in packet 05/31/2017 apply 1 packet (40 mg) to the affected knee(s) by topical route 2 times per day for 30 days Lyrica 50 mg oral capsule 08/30/2017 09/29/2017 take 1 capsule by oral route 2 times a day for 30 days metoprolol tartrate 25 mg oral tablet 09/12/2017 take 1 tablet (25 mg) by oral route 2 times per day for 90 days baclofen 10 mg oral tablet 09/20/2017 10/20/2017 take 1 tablet (10 mg) by oral route 3 times per day for 30 days Name [...] 4 hours as needed for 20 days Cipro 500 mg oral tablet 08/25/2015 09/01/2015 take 1 tablet (500 mg) by oral route every 12 hours for 7 days Stool Softener oral cetirizine 10 mg oral tablet 01/15/2016 04/14/2016 [...] Apply to affected areas as directed vitamin X92-grxxn acid 500-400 mcg oral tablet take 1 tablet by oral route daily amoxicillin 500 mg oral capsule 06/09/2016 06/19/2016 take 2 capsules by oral route every 12 hours for 10 days levothyroxine 75 mcg oral tablet 09/14/2016 09/09/2017 TAKE 1 TABLET BY MOUTH DAILY for 90 days triamcinolone acetonide 0.1 % topical ointment [...] HC BMI BSA BMI Percentile O2 Sat(%) 09/27/2017 2:39:00 PM 90 mmHg 82 bpm 97.9 F 144.312 lbs 63 in 25.5635 kg/m 1.7058 m 96 % 08/23/2017 1:30:00 PM 168 mmHg 68 mmHg [...] 12/09/2016 12:00 AM COMPREHEN METABOLIC PANEL Reviewed 08/23/2017 12:00 AM MRI LUMBAR SPINE W/O DYE Returned 08/23/2017 12:00 AM RADEX WRIST COMPLETE MINIMUM 3 VIEWS Returned 08/23/2017 12:00 AM RADEX WRIST COMPLETE MINIMUM 3 VIEWS Returned 10/16/2012 12:00 AM COMPREHEN METABOLIC PANEL Reviewed [...] pg/mL 03/17/2012 3:52 PM TSH 2.150 uIU/mL 10/16/2012 1:24 PM Colonoscopy-Women and Men over [...] 10:48AM Atrial Fibrillation Apr 20 2010 10:48AM Intermediate (Current) Use Of Anticoagulants Apr 20 2010 10:48AM Hypothyroidism, Acquired Apr 20 2010 10:48AM Anxiety Disorder Apr 20 2010 10:48AM Chronic Obstructive Pulmonary Disease Apr 20 2010 10:48AM Essential Hypertension May 20 2010 1:10PM Hyperlipidemia May 20 2010 1:10PM Atrial Fibrillation May 20 2010 1:10PM Intermediate (Current) Use Of Anticoagulants May 20 2010 1:10PM Hypothyroidism, Acquired May 20 2010 1:10PM Anxiety Disorder May 20 2010 1:10PM Chronic Obstructive Pulmonary Disease May 20 2010 1:10PM Neuropathy May 20 2010 1:10PM Essential Hypertension Aug 21 2010 9:25AM Hyperlipidemia Aug 21 2010 9:25AM Atrial Fibrillation Aug 21 2010 9:25AM Fish Header (Current) Use Of Anticoagulants Aug 21 2010 9:25AM Hypothyroidism, Acquired Aug 21 2010 9:25AM Neuropathy Aug 21 2010 9:25AM Anxiety Disorder Aug 21 2010 9:25AM Chronic Obstructive Pulmonary Disease Aug 21 2010 9:25AM Essential Hypertension Sep 07 2010 4:10PM Hyperlipidemia Sep 07 2010 4:10PM Atrial Fibrillation Sep 07 2010 4:10PM Fish Header (Current) Use Of Anticoagulants Sep 07 2010 4:10PM Hypothyroidism, Acquired Sep 07 2010 4:10PM Neuropathy Sep 07 2010 4:10PM Anxiety Disorder Sep 07 2010 4:10PM Chronic Obstructive Pulmonary Disease Sep 07 2010 4:10PM Diarrhea Sep 07 2010 4:10PM Psoriasis 01/15/2016 Essential Hypertension Sep 30 2010 10:07AM Hyperlipidemia Sep 30 2010 10:07AM Atrial Fibrillation Sep 30 2010 10:07AM Intermediate (Current) Use Of Anticoagulants Sep 30 2010 [...] 2:08PM Atrial Fibrillation Oct 05 2010 2:08PM Intermediate (Current) Use Of Anticoagulants Oct 05 2010 [...] 2:12PM Atrial Fibrillation Oct 19 2010 2:12PM Intermediate (Current) Use Of Anticoagulants Oct 19 2010 [...] 2:58PM Atrial Fibrillation Nov 16 2010 2:58PM Intermediate (Current) Use Of Anticoagulants Nov 16 2010 [...] 2:04PM Atrial Fibrillation Jan 21 2011 2:04PM Intermediate (Current) Use Of Anticoagulants Jan 21 2011 [...] 10:00AM Atrial Fibrillation Apr 13 2011 10:00AM Intermediate (Current) Use Of Anticoagulants Apr 13 2011 [...] 10:33AM Atrial Fibrillation Aug 11 2011 10:33AM Fish Header (Current) Use Of Anticoagulants Aug 11 2011 [...] 11:10AM Atrial Fibrillation Aug 16 2011 11:10AM Intermediate (Current) Use Of Anticoagulants Aug 16 2011 [...] 1:51PM Atrial Fibrillation Sep 08 2011 1:51PM Fish Header (Current) Use Of Anticoagulants Sep 08 2011 [...] 3:51PM Atrial Fibrillation Sep 21 2011 3:51PM Intermediate (Current) Use Of Anticoagulants Sep 21 2011 [...] 3:55PM Atrial Fibrillation Sep 29 2011 3:55PM Fish Header (Current) Use Of Anticoagulants Sep 29 2011 [...] 1:08PM Atrial Fibrillation Dec 16 2011 1:08PM Intermediate (Current) Use Of Anticoagulants Dec 16 2011 [...] 4:15PM Atrial Fibrillation Sep 6 2011 4:15PM Intermediate (Current) Use Of Anticoagulants Sep 6 2011 [...] 1:24PM Atrial Fibrillation Oct 16 2012 1:24PM Fish Header (Current) Use Of Anticoagulants Oct 16 2012 [...] 1:08PM Atrial Fibrillation May 07 2013 1:08PM Fish Header (Current) Use Of Anticoagulants May 07 2013 [...] 3:49PM Dysphagia b 2014 3:49PM Polymyalgia Rheumatica b 2015 3:49PM Vitamin deficiency Feb 2014 3:49PM Anxiety Feb 4 2014 3:49PM Atrial Fibrillation Feb 4 2014 3:49PM Chronic Obstructive Pulmonary Disease Feb 4 2014 3:49PM Hyperlipidemia Feb 4 2015 3:49PM hypothyroid Feb 4 2014 3:49PM Osteopenia Jul 17 2014 3:49PM [...] 1:45PM Falls frequently Aug 23 2017 1:45PM Mechanical low back pain Sep 27 2017 2:43PM Pain in left wrist Sep 27 2017 2:43PM Other chronic pain Sep 27 2017 2:43PM Pain in right wrist Sep 27 2017 2:43PM Other chronic pain Sep 27 2017 2:43PM Lumbar spinal stenosis Sep 27 2017 2:43PM Bowel incontinence Sep 27 2017 2:43PM Leg numbness Sep 27 2017 2:43PM Falls frequently Sep 27 2017 2:43PM Cellulitis Sep 27 2017 2:43PM Payers Insurance Name Company Name Plan Name Plan Number Policy Number Policy Group Number Start Date [facility] [id number] Tuesday, 2017 Medicare Part B Medicare [place] [id number] Wednesday, 1992 [facility] [id number] Wednesday, 2008 Medicare Part A Medicare Part A [id number] N/A [employer] Equitable [employer] Supplement [id number] Thursday, 2013 [employer] [id number] Thursday, [address] [facility] [id number] N/A Medicare RHC Medicare RHC [id number] Wednesday, 1992 [employer] [id number] Tuesday, 2015 Medicare Part A Medicare - Lab/Xray [id number] N/A History of Encounters Visit Date Visit Type Provider 09/27/2017 Office visit Kelvin Desouza DO 08/23/2017 Office visit Kelvin Desouza DO 08/09/[address] Eliseo Malave MD 07/05/[address] Eliseo Malave MD 06/29/2017 Hospital Shawanda Monterroso MD 02/11/2017 [facility] Shawanda Monterroso MD 01/11/[address] [...] Office visit Jose Roberto Troy APRN 02/06/2015 [facility] Giana Mendes MD 02/06/2015 Office visit Collette Gonzales MD 12/30/2014 Office visit Jose Roberto Troy UNION CARPENTER 12/26/2014 Office visit Jose Roberto Troy UNION CARPENTER 11/21/2014 Hospital Shawanda Monterroso MD 11/21/2014 Office visit Collette Gonzales MD 11/18/2014 Office visit Virginia Pollock UNION CARPENTER 10/08/2014 Nurse visit Jose Roberto Troy UNION CARPENTER 09/24/2014 Office visit Virginia Pollock UNION CARPENTER 07/17/2014 Office visit Collette Gonzales MD 04/15/2014 Office visit Collette Gonzales MD 03/07/2014 Office visit Mariano Fonseca MD 01/17/2014 Office visit Virginia Pollock UNION CARPENTER 09/18/2013 Office visit Collette Gonzales MD 06/29/2013 Office visit Jose Roberto Troy UNION CARPENTER 05/07/2013 Office visit Verónica Seay MD 03/13/2013 [facility] Shawanda Monterroso MD 01/23/2013 Office visit Virginia Pollock UNION CARPENTER 11/27/2012 Office visit Virginia Pollock UNION CARPENTER 11/02/2012 Office visit Verónica Seay MD 10/16/2012 Office visit Verónica Seay MD 06/27/2012 Office visit Lai Sharp MD 05/10/2012 Office visit Lai Sharp MD 04/19/2012 Office visit Lai Sharp MD 02/17/2012 Office visit Verónica Seay MD 12/16/2011 Office visit Verónica Seay MD 11/05/2011 [facility] Shawanda Monterroso MD 09/29/2011 Office visit Verónica Seay MD 09/21/2011 Office visit Verónica Seay MD 09/08/2011 Office visit Verónica Seay MD 08/16/2011 Office visit Verónica Seay MD 08/13/2011 Nurse visit Verónica Seay MD 08/12/2011 Nurse visit Verónica Seay MD 08/11/2011 Office visit Verónica Seay MD 07/08/2011 Office visit Tanya Rodriguez UNION CARPENTER 04/13/2011 Office visit Verónica Seay MD 01/21/2011 [...]
--- OUTSIDE RECORDS SUMMARY | 2017-09-30 12:44 | XMS REPORT ---
Author Jose Roberto Park [facility] Address [address] [place], [place] [address] Care Team Providers Care Field Producer Name Role Phone Jose Roberto Troy PCP [...] 1 capsule by oral route daily vitamin Z44-renou acid 500-400 mcg oral tablet take 1 tablet by oral route daily Name Start Date Expiration Date SIG Comments [...] route every 12 hours for 10 days Discontinued Name Start Date Discontinued Date [...] 3.91 HGB 11.90 g/dLHCT 37.70 %MCV 96.0 [facility] 30.40 pgHC 31.60 g/dLRDW SD 51 RDW [...] 10:48AM Atrial Fibrillation Apr 20 2010 10:48AM Snf (Current) Use Of Anticoagulants Apr 20 2010 [...] 9:25AM Atrial Fibrillation Aug 21 2010 9:25AM [place]um [employer] Hospitalist (Current) Use Of Anticoagulants Aug 21 2010 9:25AM Hypothyroidism, Acquired Aug 21 2010 9:25AM Neuropathy Aug 21 2010 9:25AM Anxiety Disorder Aug 21 2010 9:25AM Chronic Obstructive Pulmonary Disease Aug 21 2010 9:25AM Essential Hypertension Sep 07 2010 4:10PM Hyperlipidemia Sep 07 2010 4:10PM Atrial Fibrillation Sep 07 2010 4:10PM [employer] Hospitalist (Current) Use Of Anticoagulants Sep 07 2010 4:10PM Hypothyroidism, Acquired Sep 07 2010 4:10PM Neuropathy Sep 07 2010 4:10PM Anxiety Disorder Sep 07 2010 4:10PM Chronic Obstructive Pulmonary Disease Sep 07 2010 4:10PM Diarrhea Sep 07 2010 4:10PM Psoriasis 01/15/2016 Essential Hypertension Sep 30 2010 10:07AM Hyperlipidemia Sep 30 2010 10:07AM Atrial Fibrillation Sep 30 2010 10:07AM [employer] Hospitalist (Current) Use Of Anticoagulants Sep 30 2010 [...] 2:08PM Atrial Fibrillation Oct 05 2010 2:08PM Snf (Current) Use Of Anticoagulants Oct 05 2010 [...] 2:58PM Atrial Fibrillation Nov 16 2010 2:58PM Loc[employer] Tenens Hospitalist (Current) Use Of Anticoagulants Nov 16 2010 [...] 10:33AM Atrial Fibrillation Aug 11 2011 10:33AM [employer] Tenens Hospitalist (Current) Use Of Anticoagulants Aug 11 2011 [...] 11:10AM Atrial Fibrillation Aug 16 2011 11:10AM Snf (Current) Use Of Anticoagulants Aug 16 2011 [...] 1:51PM Atrial Fibrillation Sep 08 2011 1:51PM Loc[employer] Tenens Hospitalist (Current) Use Of Anticoagulants Sep 08 2011 [...] 3:55PM Atrial Fibrillation Sep 29 2011 3:55PM Snf (Current) Use Of Anticoagulants Sep 29 2011 [...] 1:08PM Atrial Fibrillation Dec 16 2011 1:08PM [employer] Hospitalist (Current) Use Of Anticoagulants Dec 16 2011 [...] 2011 4:15PM Snf (Current) Use Of Anticoagulants Sep 6 2011 [...] 1:24PM Atrial Fibrillation Oct 16 2012 1:24PM Snf (Current) Use Of Anticoagulants Oct 16 2012 [...] Number Policy Group Number Start Date Medicare [facility] Medicare [facility] [id number] N/A [employer] [id number] Tuesday, 2015 Medicare Part A Medicare - Lab/Xray [id number] N/A Medicare Part B Medicare Of [place] [id number] Wednesday, November 11, 1992 [facility] [id number] Wednesday, September 03, 2008 Medicare Part A Medicare Part A [id number] N/A [employer] Equitable Life Supplement [id number] Thursday, June 13, 2013 [employer] [id number] Thursday, June 13, 2013 [facility] [id number] N/A History of Encounters Visit Date Visit Type Provider 06/09/2016 Office visit Jose Roberto Troy CLOTHING PATTERNMAKER 04/30/2016 Procedures Prem Kim DO 04/09/[address] Eliseo Malave MD 01/15/[address] Eliseo Malave MD 11/24/[address] Eliseo Malave MD 10/03/[address] Eliseo Malave MD 09/17/2015 Office visit Jose Roberto Troy CLOTHING PATTERNMAKER 02/06/2015 Hospital Giana Mendes MD 02/06/2015 Office visit Collette Gonzales MD 12/30/2014 Office visit Jose Roberto Troy CLOTHING PATTERNMAKER 12/26/2014 Office visit Jose Roberto Troy CLOTHING PATTERNMAKER 11/21/2014 Hospital Shawanda Monterroso MD 11/21/2014 Office visit Collette Gonzales MD 11/18/2014 Office visit Virginia Pollock CLOTHING PATTERNMAKER 10/08/2014 Nurse visit Jose Roberto Troy CLOTHING PATTERNMAKER 09/24/2014 Office visit Virginia Pollock CLOTHING PATTERNMAKER 07/17/2014 Office visit Collette Gonzales MD 04/15/2014 Office visit Collette Gonzales MD 03/07/2014 Office visit Mariano Fonseca MD 01/17/2014 Office visit Virginia Pollock CLOTHING PATTERNMAKER 09/18/2013 Office visit Collette Gonzales MD 06/29/2013 Office visit Jose Roberto Troy CLOTHING PATTERNMAKER 05/07/2013 Office visit Verónica Seay MD 03/13/2013 Hospital Shawanda Monterroso MD 01/23/2013 Office visit Virginia Pollock CLOTHING PATTERNMAKER 11/27/2012 Office visit Virginia Pollock CLOTHING PATTERNMAKER 11/02/2012 Office visit Verónica Seay MD 10/16/2012 Office visit Verónica Seay MD 06/27/2012 Office visit Lai Sharp MD 05/10/2012 Office visit Lai Sharp MD 04/19/2012 Office visit Lai Sharp MD 02/17/2012 Office visit Verónica Seay MD 12/16/2011 Office visit Verónica Seay MD 11/05/2011 [facility] Shawanda Monterroso MD 09/29/2011 Office visit Verónica Seay MD 09/21/2011 Office visit Verónica Seay MD 09/08/2011 Office visit Verónica Seay MD 08/16/2011 Office visit Verónica Seay MD 08/13/2011 Nurse visit Verónica Seay MD 08/12/2011 Nurse visit Verónica Seay MD 08/11/2011 Office visit Vreónica Seay MD 07/08/2011 Office visit Tanya Rodriguez CLOTHING PATTERNMAKER 04/13/2011 Office visit Verónica Seay MD 01/21/2011 [...]
--- OUTSIDE RECORDS SUMMARY | 2017-09-30 12:47 | XMS REPORT ---
Author Author Kelvin Desouza Organization [facility] Address [address] [place], [place] [address] Care Team Providers Care Tar Leveler Name Role Phone Kelvin Desouza PCP Eliseo [...] Apply to affected areas as directed vitamin Z68-xuerf acid 500-400 mcg oral tablet take 1 [...] 9:25AM Atrial Fibrillation Aug 21 2010 9:25AM Cribber (Current) Use Of Anticoagulants Aug 21 2010 9:25AM Hypothyroidism, Acquired Aug 21 2010 9:25AM Neuropathy Aug 21 2010 9:25AM Anxiety Disorder Aug 21 2010 9:25AM Chronic Obstructive Pulmonary Disease Aug 21 2010 9:25AM Essential Hypertension Sep 07 2010 4:10PM Hyperlipidemia Sep 07 2010 4:10PM Atrial Fibrillation Sep 07 2010 4:10PM Cribber (Current) Use Of Anticoagulants Sep 07 2010 4:10PM Hypothyroidism, Acquired Sep 07 2010 4:10PM Neuropathy Sep 07 2010 4:10PM Anxiety Disorder Sep 07 2010 4:10PM Chronic Obstructive Pulmonary Disease Sep 07 2010 4:10PM Diarrhea Sep 07 2010 4:10PM Psoriasis 01/15/2016 Essential Hypertension Sep 30 2010 10:07AM Hyperlipidemia Sep 30 2010 10:07AM Atrial Fibrillation Sep 30 2010 10:07AM Detention (Current) Use Of Anticoagulants Sep 30 2010 [...] 2:08PM Atrial Fibrillation Oct 05 2010 2:08PM Detention (Current) Use Of Anticoagulants Oct 05 2010 [...] 10:00AM Atrial Fibrillation Apr 13 2011 10:00AM Detention (Current) Use Of Anticoagulants Apr 13 2011 [...] 10:33AM Atrial Fibrillation Aug 11 2011 10:33AM Cribber (Current) Use Of Anticoagulants Aug 11 2011 [...] 1:51PM Atrial Fibrillation Sep 08 2011 1:51PM Cribber (Current) Use Of Anticoagulants Sep 08 2011 [...] 3:55PM Atrial Fibrillation Sep 29 2011 3:55PM Cribber (Current) Use Of Anticoagulants Sep 29 2011 [...] 1:24PM Atrial Fibrillation Oct 16 2012 1:24PM Cribber (Current) Use Of Anticoagulants Oct 16 2012 [...] 1:08PM Atrial Fibrillation May 07 2013 1:08PM Cribber (Current) Use Of Anticoagulants May 07 2013 [...] Policy Number Policy Group Number Start Date [facility] [id number] Tuesday, 2017 Medicare Part B Medicare [place] [id number] Wednesday, 1992 [facility] [id number] Wednesday, 2008 Medicare Part A Medicare Part A [id number] N/A [employer] Supplement [id number] Thursday, 2013 [employer] [id number] Thursday, 2013 [facility] [id number] N/A Medicare RHC Medicare RHC [id number] Wednesday, 1992 [employer] [id number] Tuesday, 2015 Medicare Part A Medicare - Lab/Xray [id number] N/A History of Encounters Visit Date Visit Type Provider 09/27/2017 Office visit Kelvin Desouza DO 08/23/2017 Office visit Kelvin Desouza DO 08/09/[address] Eliseo Malave MD 07/05/[address] Eliseo Malave MD 06/29/2017 Hospital Shawanda Monterroso MD 02/11/2017 [facility] Shawanda Monterroso MD 01/11/[address] [...] MD 12/30/2014 Office visit Jose Roberto Troy TIN CAN LABORER 12/26/2014 Office visit Jose Roberto Troy TIN CAN LABORER 11/21/2014 Hospital Shawanda Monterroso MD 11/21/2014 Office visit Collette Gonzales MD 11/18/2014 Office visit Virginia Pollock TIN CAN LABORER 10/08/2014 Nurse visit Jose Roberto Tryo TIN CAN LABORER 09/24/2014 Office visit Virginia Pollock TIN CAN LABORER 07/17/2014 Office visit Collette Gonzales MD 04/15/2014 Office visit Collette Gonzales MD 03/07/2014 Office visit Mariano Fonseca MD 01/17/2014 Office visit Virginia Pollock TIN CAN LABORER 09/18/2013 Office visit Collette Gonzales MD 06/29/2013 Office visit Jose Roberto Troy TIN CAN LABORER 05/07/2013 Office visit Verónica Seay MD 03/13/2013 [facility] Shawanda Monterroso MD 01/23/2013 Office visit Virginia Pollock TIN CAN LABORER 11/27/2012 Office visit Virginia Pollock TIN CAN LABORER 11/02/2012 Office visit Verónica Seay MD 10/16/2012 Office visit Verónica Seay MD 06/27/2012 Office visit Lai Sharp MD 05/10/2012 Office visit Lai Sharp MD 04/19/2012 Office visit Lai Sharp MD 02/17/2012 Office visit Verónica Seay MD 12/16/2011 Office visit Verónica Seay MD 11/05/2011 [facility] Shawanda Monterroso MD 09/29/2011 Office visit Verónica Seay MD 09/21/2011 Office visit Verónica Seay MD 09/08/2011 Office visit Verónica Seay MD 08/16/2011 Office visit Verónica Seay MD 08/13/2011 Nurse visit Verónica Seay MD 08/12/2011 Nurse visit Verónica Seay MD 08/11/2011 Office visit Verónica Seay MD 07/08/2011 Office visit Tanya Rodriguez TIN CAN LABORER 04/13/2011 Office visit Verónica Seay MD 01/21/2011 [...]
[2017-09-30 12:49] LABS: BACTERIA,URINE FEW /HPF; RBC,URINE RARE /HPF
--- OUTSIDE RECORDS SUMMARY | 2017-09-30 12:50 | XMS REPORT ---
Author Prem Draper [facility] Address [address] [place], [place] [id number] Care Team Providers [employer] Hazmat Tanker Driver Name Role Phone Prem Kim PCP Unavailable Collette Gonzales PreferredProvider Allergies and Adverse Reactions [...] 1 capsule by oral route daily vitamin [id number] acid 500-400 mcg oral tablet take 1 [...] Actinic Keratosis Active 05/03/2016 Comedone Active 05/03/2016 Vital Signs Date Time BP-Sys(mm[Hg] BP-Andree(mm[Hg]) HR(bpm) RR(rpm) Temp WT HT HC BMI BSA BMI Percentile O2 Sat(%) 04/30/2016 1:51:00 PM 130 mmHg 64 mmHg [...] FREE T4 1.14 TROPONIN-I AD <0.04 ng/mL History Of Immunizations Name Date Admin Mfg Name [facility] Code Trade Name Lot# Route Inj Vis [...] 2009 11:11AM Osteopenia spinal stenosis Pneumonia Polymyalgia Rheumatica 07/03/2013 Hypertension Feb 25 2010 9:42AM Hyperlipidemia, Unspecified Feb 25 2010 9:42AM Hypothyroidism, Acquired Feb 25 2010 9:42AM Numbness and Tingling bilateral LE Sawyer thyroiditis Dysphagia 04/15/2014 Carpal Tunnel Syndrome 04/15/2014 Vitamin deficiency 04/15/2014 Essential Hypertension Apr 20 2010 10:48AM Hyperlipidemia Apr 20 2010 10:48AM Atrial Fibrillation Apr 20 2010 10:48AM Pilot Plant Research Technician (Current) Use Of Anticoagulants Apr 20 2010 10:48AM Hypothyroidism, Acquired Apr 20 2010 10:48AM Anxiety Disorder Apr 20 2010 10:48AM Chronic Obstructive Pulmonary Disease Apr 20 2010 10:48AM Essential Hypertension May 20 2010 1:10PM Hyperlipidemia May 20 2010 1:10PM Atrial Fibrillation May 20 2010 1:10PM Pilot Plant Research Technician (Current) Use Of Anticoagulants May 20 2010 1:10PM Hypothyroidism, Acquired May 20 2010 1:10PM Anxiety Disorder May 20 2010 1:10PM Chronic Obstructive Pulmonary Disease May 20 2010 1:10PM Neuropathy May 20 2010 1:10PM Essential Hypertension Aug 21 2010 9:25AM Hyperlipidemia Aug 21 2010 9:25AM Atrial Fibrillation Aug 21 2010 9:25AM Mcfp (Current) Use Of Anticoagulants Aug 21 2010 9:25AM Hypothyroidism, Acquired Aug 21 2010 9:25AM Neuropathy Aug 21 2010 9:25AM Anxiety Disorder Aug 21 2010 9:25AM Chronic Obstructive Pulmonary Disease Aug 21 2010 9:25AM Essential Hypertension Sep 07 2010 4:10PM Hyperlipidemia Sep 07 2010 4:10PM Atrial Fibrillation Sep 07 2010 4:10PM Mcfp (Current) Use Of Anticoagulants Sep 07 2010 4:10PM Hypothyroidism, Acquired Sep 07 2010 4:10PM Neuropathy Sep 07 2010 4:10PM Anxiety Disorder Sep 07 2010 4:10PM Chronic Obstructive Pulmonary Disease Sep 07 2010 4:10PM Diarrhea Sep 07 2010 4:10PM Psoriasis 01/15/2016 Essential Hypertension Sep 30 2010 10:07AM Hyperlipidemia Sep 30 2010 10:07AM Atrial Fibrillation Sep 30 2010 10:07AM Pilot Plant Research Technician (Current) Use Of Anticoagulants Sep 30 [...] 2:08PM Atrial Fibrillation Oct 05 2010 2:08PM Pilot Plant Research Technician (Current) Use Of Anticoagulants Oct 05 [...] Rheumatica Oct 05 2010 2:08PM Actinic Keratosis 05/03/2016 Comedone 05/03/2016 Essential Hypertension Oct 19 2010 2:12PM Hyperlipidemia Oct 19 2010 2:12PM Atrial Fibrillation Oct 19 2010 2:12PM Pilot Plant Research Technician (Current) Use Of Anticoagulants Oct 19 [...] 2:58PM Atrial Fibrillation Nov 16 2010 2:58PM Mcfp (Current) Use Of Anticoagulants Nov 16 2010 [...] 2:04PM Atrial Fibrillation Jan 21 2011 2:04PM Pilot Plant Research Technician (Current) Use Of Anticoagulants Jan 21 2011 [...] 10:00AM Atrial Fibrillation Apr 13 2011 10:00AM Pilot Plant Research Technician (Current) Use Of Anticoagulants Apr 13 [...] 10:33AM Atrial Fibrillation Aug 11 2011 10:33AM Pilot Plant Research Technician (Current) Use Of Anticoagulants Aug 11 2011 [...] 11:10AM Atrial Fibrillation Aug 16 2011 11:10AM Mcfp (Current) Use Of Anticoagulants Aug 16 2011 [...] 1:51PM Atrial Fibrillation Sep 08 2011 1:51PM Pilot Plant Research Technician (Current) Use Of Anticoagulants Sep 08 2011 [...] 3:51PM Atrial Fibrillation Sep 21 2011 3:51PM Pilot Plant Research Technician (Current) Use Of Anticoagulants Sep 21 [...] 3:55PM Atrial Fibrillation Sep 29 2011 3:55PM Pilot Plant Research Technician (Current) Use Of Anticoagulants Sep 29 [...] 1:08PM Atrial Fibrillation Dec 16 2011 1:08PM Mcfp (Current) Use Of Anticoagulants Dec 16 2011 [...] Hypertension Sep 6 2011 4:15PM Hyperlipidemia Sep 2011 4:15PM Atrial Fibrillation Sep 2011 4:15PM Mcfp (Current) Use Of Anticoagulants Feb 17 2012 4:15PM Hypothyroidism, Acquired Feb 17 2012 4:15PM Myalgia Sep 6 2011 4:15PM Osteoporosis [...] 1:24PM Atrial Fibrillation Oct 16 2012 1:24PM Mcfp (Current) Use Of Anticoagulants Oct 16 2012 [...] 1:08PM Atrial Fibrillation May 07 2013 1:08PM Mcfp (Current) Use Of Anticoagulants May 07 2013 [...] 2016 1:57PM Comedone Apr 30 2016 1:57PM Payers Insurance Name Company Name Plan Name Plan Number Policy Number Policy Group Number Start Date Medicare Part A Medicare [facility] [id number] N/A [employer] Equitable [employer] You [id number] Tuesday, 2015 Medicare Part A Medicare - Lab/Xray [id number] N/A Medicare Part B Medicare Of [place] [id number] Wednesday, November 11, 1992 [facility] [id number] Wednesday, September 03, 2008 Medicare Part A Medicare Part A [id number] N/A [employer] Equitable Life MC Supplement [id number] Thursday, June 13, 2013 [employer] Equitable & You [id number] Thursday, June 13, 2013 [facility] [id number] N/A History of Encounters Visit Date Visit Type Provider 04/30/2016 Procedures Prem Kim DO 04/09/[address] Eliseo Malave MD 01/15/[address] Eliseo Malave MD 11/24/[address] Eliseo Malave MD 10/03/[address] Eliseo Malave MD 09/17/2015 Office visit Jose Roberto Troy APRN 02/06/2015 [facility] Giana Mendes MD 02/06/2015 Office visit Collette Gonzales MD 12/30/2014 Office visit Jose Roberto Troy APRN 12/26/2014 Office visit Jose Roberto Troy APRN 11/21/2014 [facility]anda Monterroso MD 11/21/2014 Office [...] Monterroso MD 01/23/2013 Office visit Virginia Pollock OIL WELL CABLE TOOL OPERATOR 11/27/2012 Office visit Virginia Pollock OIL WELL CABLE TOOL OPERATOR 11/02/2012 Office visit Verónica Seay MD 10/16/2012 [...] Seay MD 07/08/2011 Office visit Tanya Rodriguez OIL WELL CABLE TOOL OPERATOR 04/13/2011 Office visit Verónica Seay MD 01/21/2011 [...]
--- OUTSIDE RECORDS SUMMARY | 2017-09-30 12:51 | XMS REPORT ---
Author Author [facility] Organization [facility] Address [address] [place], [place] [id number] Care Team Providers Care Linen Tech Name Role Phone PCP Unavailable Allergies and Adverse Reactions Name Reaction Notes doxycycline hyclate hives/ vomiting Plan of Treatment Planned Activity Comments Planned Date Planned Time Plan/Goal ASSAY THYROID STIM HORMONE 10/16/2012 12:00 AM Medications Active Name Start Date [...] HC BMI BSA BMI Percentile O2 Sat(%) 10/08/2014 4:16:00 PM 140 mmHg 70 mmHg [...] Reviewed 10/04/2014 12:00 AM PROTHROMBIN TIME Returned 01/15/2011 12:00 [...] PM PROTIME POCT 17.80 secsINR POCT 1.5 History Of Immunizations Name [...] 1:10PM Atrial Fibrillation May 20 2010 1:10PM Chcf (Current) Use Of Anticoagulants May 20 2010 1:10PM Hypothyroidism, Acquired May 20 2010 1:10PM Anxiety Disorder May 20 2010 1:10PM Chronic Obstructive Pulmonary Disease May 20 2010 1:10PM Neuropathy May 20 2010 1:10PM Essential Hypertension Aug 21 2010 9:25AM Hyperlipidemia Aug 21 2010 9:25AM Atrial Fibrillation Aug 21 2010 9:25AM Financial Project Manager (Current) Use Of Anticoagulants Aug 21 [...] 2:08PM Atrial Fibrillation Oct 05 2010 2:08PM Chcf (Current) Use Of Anticoagulants Oct 05 2010 [...] 2:58PM Atrial Fibrillation Nov 16 2010 2:58PM Financial Project Manager (Current) Use Of Anticoagulants Nov 16 2010 [...] 2:04PM Atrial Fibrillation Jan 21 2011 2:04PM Financial Project Manager (Current) Use Of Anticoagulants Jan 21 [...] 10:33AM Atrial Fibrillation Aug 11 2011 10:33AM Financial Project Manager (Current) Use Of Anticoagulants Aug 11 2011 [...] 11:10AM Atrial Fibrillation Aug 16 2011 11:10AM Chcf (Current) Use Of Anticoagulants Aug 16 2011 [...] 1:51PM Atrial Fibrillation Sep 08 2011 1:51PM Financial Project Manager (Current) Use Of Anticoagulants Sep 08 2011 [...] 3:55PM Atrial Fibrillation Sep 29 2011 3:55PM Financial Project Manager (Current) Use Of Anticoagulants Sep 29 2011 [...] 1:08PM Atrial Fibrillation Dec 16 2011 1:08PM Financial Project Manager (Current) Use Of Anticoagulants Dec 16 2011 [...] 4:15PM Atrial Fibrillation Feb 17 2012 4:15PM Financial Project Manager (Current) Use Of Anticoagulants Feb 17 2012 4:15PM Hypothyroidism, Acquired Sep 2011 4:15PM Myalgia [...] 1:24PM Atrial Fibrillation Oct 16 2012 1:24PM Financial Project Manager (Current) Use Of Anticoagulants Oct 16 2012 [...] 1:08PM Atrial Fibrillation May 07 2013 1:08PM Financial Project Manager (Current) Use Of Anticoagulants May 07 2013 [...] 17 2014 3:49PM Vitamin deficiency Jul 17 2015 3:49PM Anxiety Feb 4 2014 3:49PM Atrial Fibrillation Jul 17 2014 3:49PM Chronic Obstructive Pulmonary Disease Jul 17 2015 3:49PM Hyperlipidemia Feb 2015 3:49PM hypothyroid Jul 17 2014 3:49PM Osteopenia Jul 17 2014 3:49PM Numbness and Tingling Jul 17 2014 3:49PM Orthostatic hypotension Sep 24 2014 1:21PM Anticoagulant long-term use Oct 04 2014 11:22AM Hypertension, Benign Essential Oct 08 2014 4:16PM Payers Insurance Name Company Name Plan Name Plan Number Policy Number Policy Group Number Start Date Medicare Part A Medicare Part A [id number] N/A [facility] [id number] N/A [employer] Equitable Life MC Supplement [id number] Thursday, 2013 [employer] Equitable [employer] You [id number] Thursday, 2013 Medicare Part B Medicare Of [place] [id number] Wednesday, 1992 [facility] [id number] Wednesday, 2008 History of Encounters Visit Date Visit Type Provider 10/08/2014 Nurse visit Jose Roberto Troy MARINE REPORTER 09/24/2014 Office visit Virginia Pollock MARINE REPORTER 07/17/2014 Office visit Collette Gonzales MD 04/15/2014 Office visit Collette Gonzales MD 03/07/2014 Office visit Mariano Fonseca MD 01/17/2014 Office visit Virginia Pollock MARINE REPORTER 09/18/2013 Office visit Collette Gonzales MD 06/29/2013 Office visit Jose Roberto Troy MARINE REPORTER 05/07/2013 Office visit Verónica Seay MD 03/13/2013 [facility]anda Monterroso MD 01/23/2013 Office visit Virginia Pollock MARINE REPORTER 11/27/2012 Office visit Virginia Pollock MARINE REPORTER 11/02/2012 Office visit Verónica Seay MD 10/16/2012 [...]
[2017-09-30 12:52] LABS: PROTHROMBIN TIME PATIENT 12.9 SEC (12.2-14.7)
--- OUTSIDE RECORDS SUMMARY | 2017-09-30 12:53 | XMS REPORT ---
Author Author [facility] Organization [facility] Address [address] [place], [place] [id number] Care Team Providers Care Veneer Redrier Name Role Phone PCP Unavailable Allergies and [...] CHEST X-RAY 2VW FRONTAL&LATL 11/18/2014 12:00 AM X-RAY EXAM RIBS UNI 2 VIEWS 11/26/2014 12:00 AM URINALYSIS AUTO W/SCOPE 11/26/2014 12:00 AM Medications Active Name Start Date [...] route once daily for 90 days warfarin oral tablet 5 [...] every 12 hours for 90 days Augmentin oral tablet 500-125 mg 11/26/2014 12/01/2014 take 1 tablet by oral route 2 times a day for 5 days Vitamin D2 oral capsule 50,000 unit 11/26/2014 take 1 capsule (50,000 unit ) by oral route once weekly x 12 weeks Name Start Date Expiration Date SIG Comments [...] TABLET BY MOUTH DAILY for 30 days alprazolam oral tablet 0.25 mg 08/23/2014 11/21/2014 take 1 tablet by oral route 2 times a day for 90 days warfarin oral tablet 1 mg 10/11/2014 [...] Onset Anxiety Active Atrial Fibrillation Active Chronic obstructive pulmonary disease Active Hyperlipidemia Active Hypertension Active hypothyroid Active [...] 12:00 AM CHEST X-RAY 2VW FRONTAL&LATL Returned 01/15/2011 12:00 AM URINALYSIS AUTO W/SCOPE [...] CELLS FEW SQUAMOUS TRICHOMONAS NEGATIVE YEAST NEGATIVE History Of Immunizations Name Date Admin [facility] Name Mf Code Trade Name Lot# Route Inj Vis Given Vis Pub CVX Influenza 04/01/2011 Not Entered NE Not Entered Not Entered Not Entered 04/01/2011 06/13/2015 141 History of Past Illness Name Date of Onset Comments Hypertension Anxiety hypothyroid Hyperlipidemia Atrial Fibrillation Chronic obstructive pulmonary disease Rhinitis, Allergic Sep 17 2009 11:11AM Chronic [...] Syndrome 04/15/2014 Vitamin deficiency 04/15/2014 Essential Hypertension Nov 8 2010 10:48AM Hyperlipidemia Apr 20 2010 10:48AM Atrial Fibrillation Apr 20 2010 10:48AM Fpc (Current) Use Of Anticoagulants Apr 20 2010 10:48AM Hypothyroidism, Acquired Apr 20 2010 10:48AM Anxiety Disorder Apr 20 2010 10:48AM Chronic Obstructive Pulmonary Disease Apr 20 2010 10:48AM Essential Hypertension May 20 2010 1:10PM Hyperlipidemia May 20 2010 1:10PM Atrial Fibrillation May 20 2010 1:10PM Fpc (Current) Use Of Anticoagulants May 20 2010 1:10PM Hypothyroidism, Acquired May 20 2010 1:10PM Anxiety Disorder May 20 2010 1:10PM Chronic Obstructive Pulmonary Disease May 20 2010 1:10PM Neuropathy May 20 2010 1:10PM Essential Hypertension Aug 21 2010 9:25AM Hyperlipidemia Aug 21 2010 9:25AM Atrial Fibrillation Aug 21 2010 9:25AM Order Management Specialist (Current) Use Of Anticoagulants Aug 21 2010 9:25AM Hypothyroidism, Acquired Aug 21 2010 9:25AM Neuropathy Aug 21 2010 9:25AM Anxiety Disorder Aug 21 2010 9:25AM Chronic Obstructive Pulmonary Disease Aug 21 2010 9:25AM Essential Hypertension Sep 07 2010 4:10PM Hyperlipidemia Sep 07 2010 4:10PM Atrial Fibrillation Sep 07 2010 4:10PM Fpc (Current) Use Of Anticoagulants Sep 07 2010 4:10PM Hypothyroidism, Acquired Sep 07 2010 4:10PM Neuropathy Sep 07 2010 4:10PM Anxiety Disorder Sep 07 2010 4:10PM Chronic Obstructive Pulmonary Disease Sep 07 2010 4:10PM Diarrhea Sep 07 2010 4:10PM Essential Hypertension Sep 30 2010 10:07AM Hyperlipidemia Sep 30 2010 10:07AM Atrial Fibrillation Sep 30 2010 10:07AM Order Management Specialist (Current) Use Of Anticoagulants Sep 30 [...] 2:08PM Atrial Fibrillation Oct 05 2010 2:08PM Order Management Specialist (Current) Use Of Anticoagulants Oct 05 2010 [...] 2:12PM Atrial Fibrillation Oct 19 2010 2:12PM Order Management Specialist (Current) Use Of Anticoagulants Oct 19 2010 [...] 2:58PM Atrial Fibrillation Nov 16 2010 2:58PM Order Management Specialist (Current) Use Of Anticoagulants Nov 16 [...] 2:04PM Atrial Fibrillation Jan 21 2011 2:04PM Fpc (Current) Use Of Anticoagulants Jan 21 2011 [...] 10:00AM Atrial Fibrillation Apr 13 2011 10:00AM Order Management Specialist (Current) Use Of Anticoagulants Apr 13 2011 [...] 10:33AM Atrial Fibrillation Aug 11 2011 10:33AM Fpc (Current) Use Of Anticoagulants Aug 11 2011 [...] 11:10AM Atrial Fibrillation Aug 16 2011 11:10AM Order Management Specialist (Current) Use Of Anticoagulants Aug 16 2011 [...] 1:51PM Atrial Fibrillation Sep 08 2011 1:51PM Fpc (Current) Use Of Anticoagulants Sep 08 2011 [...] 3:51PM Atrial Fibrillation Sep 21 2011 3:51PM Fpc (Current) Use Of Anticoagulants Sep 21 2011 [...] 3:55PM Atrial Fibrillation Sep 29 2011 3:55PM Order Management Specialist (Current) Use Of Anticoagulants Sep 29 2011 [...] 1:08PM Atrial Fibrillation Dec 16 2011 1:08PM Fpc (Current) Use Of Anticoagulants Dec 16 2011 [...] 4:15PM Atrial Fibrillation Feb 17 2012 4:15PM Order Management Specialist (Current) Use Of Anticoagulants Feb 17 2012 4:15PM Hypothyroidism, Acquired Feb 17 2012 4:15PM Myalgia Feb 17 2012 4:15PM Osteoporosis Feb 17 2012 4:15PM Neuropathy Feb 17 2012 4:15PM Anxiety Disorder Feb 17 2012 4:15PM Chronic Obstructive Pulmonary Disease Sep 2011 4:15PM Fatigue Sep 2011 4:15PM Polymyalgia Rheumatica Sep 2011 4:15PM Lumbar spinal stenosis Sep 2011 4:15PM Spondylolisthesis , lumbar Apr 19 [...] 1:24PM Atrial Fibrillation Oct 16 2012 1:24PM Order Management Specialist (Current) Use Of Anticoagulants Oct 16 2012 [...] 1:08PM Atrial Fibrillation May 07 2013 1:08PM Order Management Specialist (Current) Use Of Anticoagulants May 07 2013 [...] Pulmonary Disease Feb 2014 3:49PM Hyperlipidemia Feb 4 2014 3:49PM [...] (urinary tract infection) Nov 26 2014 11:23AM Payers Insurance Name Company Name Plan Name Plan Number Policy Number Policy Group Number Start Date Medicare Part A Medicare Part A [id number] N/A [facility] [id number] N/A [employer] Equitable Life Supplement [id number] Thursday, 2013 [employer] Equitable [employer] You [id number] Thursday, 2013 Medicare Part B Medicare Of [place] [id number] Wednesday, 1992 [facility] [id number] Wednesday, 2008 History of Encounters Visit Date Visit Type Provider 11/21/2014 Office visit Collette Gonzales MD 11/18/2014 Office visit Virginia Pollock ROLLER TURNER 10/08/2014 Nurse visit Jose Roberto Troy ROLLER TURNER 09/24/2014 Office visit Virginia Pollock ROLLER TURNER 07/17/2014 Office visit Collette Gonzales MD 04/15/2014 Office visit Collette Gonzales MD 03/07/2014 Office visit Mariano Fonseca MD 01/17/2014 Office visit Virginia Pollock ROLLER TURNER 09/18/2013 Office visit Collette Gonzales MD 06/29/2013 Office visit Jose Roberto Troy ROLLER TURNER 05/07/2013 Office visit Verónica Seay MD 03/13/2013 [facility] Ubaldo Monterroso MD 01/23/2013 Office visit Virginia Pollock ROLLER TURNER 11/27/2012 Office visit Virginia Pollock ROLLER TURNER 11/02/2012 Office visit Verónica Seay MD 10/16/2012 Office visit Verónica Seay MD 06/27/2012 Office visit Lai Sharp MD 05/10/2012 Office visit Lai Sharp MD 04/19/2012 Office visit Lai Sharp MD 02/17/2012 Office visit Verónica Seay MD 12/16/2011 Office visit Verónica Seay MD 11/05/2011 [facility] Ubaldo Monterroso MD 09/29/2011 Office visit Verónica Seay MD 09/21/2011 Office visit Verónica Seay MD 09/08/2011 Office visit Verónica Seay MD 08/16/2011 Office visit Verónica Seay MD 08/13/2011 Nurse visit Verónica Seay MD 08/12/2011 Nurse visit Verónica Seay MD 08/11/2011 Office visit Verónica Seay MD 07/08/2011 Office visit Tanya Rodriguez ROLLER TURNER 04/13/2011 Office visit Verónica Seay MD 01/21/2011 [...]
[2017-09-30 12:55] LABS: FIBRIN DEGRADATION PRODUCTS 0.9 UG/ML (0.00-0.49)
--- OUTSIDE RECORDS SUMMARY | 2017-09-30 12:56 | XMS REPORT ---
Author Author [facility] Organization [facility] Address [address] [place], [place] [id number] Care Team Providers Care Commercial Roofing Estimator Name Role Phone PCP Unavailable Allergies and [...] RIBS UNI 2 VIEWS 11/26/2014 12:00 AM Medications Active Name Start [...] mg 07/17/2014 1/2 tablet on mon and and 1 tablet all other days [...] NEGATIVE History Of Immunizations Name Date Admin [facility] Name Mf Code Trade Name Lot# Route [...] 10:48AM Atrial Fibrillation Apr 20 2010 10:48AM Underwriting Support Specialist (Current) Use Of Anticoagulants Apr 20 2010 10:48AM Hypothyroidism, Acquired Apr 20 2010 10:48AM Anxiety Disorder Apr 20 2010 10:48AM Chronic Obstructive Pulmonary Disease Apr 20 2010 10:48AM Essential Hypertension May 20 2010 1:10PM Hyperlipidemia May 20 2010 1:10PM Atrial Fibrillation May 20 2010 1:10PM Mcfp (Current) Use Of Anticoagulants May 20 2010 [...] 4:10PM Atrial Fibrillation Sep 07 2010 4:10PM Underwriting Support Specialist (Current) Use Of Anticoagulants Sep 07 2010 4:10PM Hypothyroidism, Acquired Sep 07 2010 4:10PM Neuropathy Sep 07 2010 4:10PM Anxiety Disorder Sep 07 2010 4:10PM Chronic Obstructive Pulmonary Disease Sep 07 2010 4:10PM Diarrhea Sep 07 2010 4:10PM Essential Hypertension Sep 30 2010 10:07AM Hyperlipidemia Sep 30 2010 10:07AM Atrial Fibrillation Sep 30 2010 10:07AM Underwriting Support Specialist (Current) Use Of Anticoagulants Sep 30 [...] 2:08PM Atrial Fibrillation Oct 05 2010 2:08PM Underwriting Support Specialist (Current) Use Of Anticoagulants Oct 05 [...] 2:12PM Atrial Fibrillation Oct 19 2010 2:12PM Underwriting Support Specialist (Current) Use Of Anticoagulants Oct 19 [...] 2:58PM Atrial Fibrillation Nov 16 2010 2:58PM Underwriting Support Specialist (Current) Use Of Anticoagulants Nov 16 [...] 2:04PM Atrial Fibrillation Jan 21 2011 2:04PM Underwriting Support Specialist (Current) Use Of Anticoagulants Jan 21 2011 [...] 10:00AM Atrial Fibrillation Apr 13 2011 10:00AM Mcfp (Current) Use Of Anticoagulants Apr 13 2011 [...] 10:33AM Atrial Fibrillation Aug 11 2011 10:33AM Mcfp (Current) Use Of Anticoagulants Aug 11 2011 [...] 11:10AM Atrial Fibrillation Aug 16 2011 11:10AM Underwriting Support Specialist (Current) Use Of Anticoagulants Aug 16 [...] 1:51PM Atrial Fibrillation Sep 08 2011 1:51PM Mcfp (Current) Use Of Anticoagulants Sep 08 2011 [...] 3:51PM Atrial Fibrillation Sep 21 2011 3:51PM Underwriting Support Specialist (Current) Use Of Anticoagulants Sep 21 2011 [...] 3:55PM Atrial Fibrillation Sep 29 2011 3:55PM Mcfp (Current) Use Of Anticoagulants Sep 29 2011 [...] 4:15PM Atrial Fibrillation Feb 17 2012 4:15PM Underwriting Support Specialist (Current) Use Of Anticoagulants Feb 17 2012 4:15PM Hypothyroidism, Acquired Feb 17 2012 4:15PM Myalgia Feb 17 2012 4:15PM Osteoporosis Feb 17 2012 4:15PM Neuropathy Feb 17 2012 4:15PM Anxiety Disorder Feb 17 2012 4:15PM Chronic Obstructive Pulmonary Disease Feb 17 2012 4:15PM Fatigue Feb 17 2012 4:15PM Polymyalgia Rheumatica Feb 17 2012 4:15PM Lumbar spinal stenosis Feb 17 2012 [...] 1:08PM Atrial Fibrillation May 07 2013 1:08PM Underwriting Support Specialist (Current) Use Of Anticoagulants May 07 [...] Feb 4 2014 3:49PM Orthostatic hypotension Sep 14 2014 1:21PM Anticoagulant long-term use Oct 04 [...] on right side Nov 26 2014 10:57AM Payers Insurance Name Company Name Plan Name Plan Number Policy Number Policy Group Number Start Date Medicare Part A Medicare Part A [id number] N/A [facility] [id number] N/A [employer] Equitable Life Supplement [id number] Thursday, 2013 [employer] Equitable [employer] You [id number] Thursday, 2013 Medicare Part B Medicare Of [place] [id number] Wednesday, [facility] [id number] Wednesday, 2008 History of Encounters Visit Date Visit Type Provider 11/21/2014 Office visit Collette Gonzales MD 11/18/2014 Office visit Virginia Pollock BILLING CHECKER 10/08/2014 Nurse visit Jose Roberto Troy BILLING CHECKER 09/24/2014 Office visit Virginia Pollock BILLING CHECKER 07/17/2014 Office visit Collette Gonzales MD 04/15/2014 Office visit Collette Gonzales MD 03/07/2014 Office visit Mariano Fonseca MD 01/17/2014 Office visit Virginia Pollock BILLING CHECKER 09/18/2013 Office visit Collette Gonzales MD 06/29/2013 Office visit Jose Roberto Troy APRN 05/07/2013 Office visit Verónica Seay MD 03/13/2013 [facility] Ubaldo Monterroso MD 01/23/2013 Office visit Virginia Pollock APRN 11/27/2012 Office visit Virginia Pollock BILLING CHECKER 11/02/2012 Office visit Verónica Seay MD 10/16/2012 Office visit Verónica Seay MD 06/27/2012 Office visit Lai Sharp MD 05/10/2012 Office visit Lai Sharp MD 04/19/2012 Office visit Lai Sharp MD 02/17/2012 Office visit Verónica Seay MD 12/16/2011 Office visit Verónica Seay MD 11/05/2011 [facility] Ubaldo Monterroso MD 09/29/2011 Office visit Verónica Seay MD 09/21/2011 Office visit Verónica Seay MD 09/08/2011 Office visit Verónica Seay MD 08/16/2011 Office visit Verónica Seay MD 08/13/2011 Nurse visit Verónica Seay MD 08/12/2011 Nurse visit Verónica Seay MD 08/11/2011 Office visit Verónica Seay MD 07/08/2011 Office visit Tanya Michael WARNER 04/13/2011 Office visit Verónica Seay MD 01/21/2011 [...]
--- OUTSIDE RECORDS SUMMARY | 2017-09-30 12:58 | XMS REPORT ---
Author Author [facility] Organization [facility] Address [address] [place], [place] [id number] Care Team Providers Care Drill Presser Name Role Phone PCP Unavailable Allergies and Adverse Reactions Name Reaction Notes doxycycline hyclate hives/ vomiting Plan of Treatment Planned Activity Comments Planned Date Planned Time Plan/Goal ASSAY THYROID STIM HORMONE 10/16/2012 12:00 AM COMPLETE CBC W/AUTO DIFF WBC 11/18/2014 12:00 AM COMPREHEN METABOLIC PANEL 11/18/2014 12:00 AM ASSAY OF TROPONIN QUANT 11/18/2014 12:00 AM ASSAY OF MAGNESIUM 11/18/2014 12:00 AM Medications Active Name Start [...] 10:48AM Atrial Fibrillation Apr 20 2010 10:48AM Blindstitch Lining Feller (Current) Use Of Anticoagulants Apr 20 2010 [...] 10:07AM Atrial Fibrillation Sep 30 2010 10:07AM Blindstitch Lining Feller (Current) Use Of Anticoagulants Sep 30 2010 [...] 2:08PM Atrial Fibrillation Oct 05 2010 2:08PM Blindstitch Lining Feller (Current) Use Of Anticoagulants Oct 05 2010 [...] 2:12PM Atrial Fibrillation Oct 19 2010 2:12PM [facility] (Current) Use Of Anticoagulants Oct 19 2010 [...] 2:58PM Atrial Fibrillation Nov 16 2010 2:58PM [facility] (Current) Use Of Anticoagulants Nov 16 2010 [...] 2:04PM Atrial Fibrillation Jan 21 2011 2:04PM Blindstitch Lining Feller (Current) Use Of Anticoagulants Jan 21 2011 [...] 10:00AM Atrial Fibrillation Apr 13 2011 10:00AM Blindstitch Lining Feller (Current) Use Of Anticoagulants Apr 13 2011 [...] 11:10AM Atrial Fibrillation Aug 16 2011 11:10AM [facility] (Current) Use Of Anticoagulants Aug 16 2011 [...] 1:51PM Atrial Fibrillation Sep 08 2011 1:51PM Blindstitch Lining Feller (Current) Use Of Anticoagulants Sep 08 2011 [...] 3:55PM Atrial Fibrillation Sep 29 2011 3:55PM Blindstitch Lining Feller (Current) Use Of Anticoagulants Sep 29 2011 [...] 1:08PM Atrial Fibrillation Dec 16 2011 1:08PM Blindstitch Lining Feller (Current) Use Of Anticoagulants Dec 16 2011 [...] 4:15PM Atrial Fibrillation Sep 6 2011 4:15PM [facility] (Current) Use Of Anticoagulants Feb 17 2012 [...] 1:08PM Atrial Fibrillation May 07 2013 1:08PM Blindstitch Lining Feller (Current) Use Of Anticoagulants May 07 2013 [...] Dysphagia b 2014 3:49PM Polymyalgia Rheumatica b 2014 3:49PM Vitamin deficiency Feb 2014 3:49PM Anxiety Feb 4 2014 3:49PM Atrial Fibrillation Feb 2014 3:49PM Chronic Obstructive Pulmonary Disease Feb 2014 3:49PM Hyperlipidemia Feb 2014 3:49PM hypothyroid Feb 2014 3:49PM Osteopenia b 2014 3:49PM Numbness and Tingling b 2014 3:49PM Orthostatic hypotension Sep 24 2014 [...] Date Medicare Part A Medicare Part A [id number] N/A [facility] [id number] N/A [employer] Equitable Life Supplement [id number] Thursday, 2013 [employer] Equitable & You [id number] Thursday, 2013 Medicare Part B Medicare Of [place] [id number] Wednesday, 1992 [facility] [id number] Wednesday, 2008 History of Encounters Visit Date Visit Type Provider 11/18/2014 Office visit Virginia Pollock PIPE FOREMAN 10/08/2014 Nurse visit Jose Roberto Troy PIPE FOREMAN 09/24/2014 Office visit Virginia Pollock PIPE FOREMAN 07/17/2014 Office visit Collette Gonzales MD 04/15/2014 Office visit Collette Gonzales MD 03/07/2014 Office visit Mariano Fonseca MD 01/17/2014 Office visit Virginia Pollock PIPE FOREMAN 09/18/2013 Office visit Collette Gonzales MD 06/29/2013 Office visit Jose Roberto Troy PIPE FOREMAN 05/07/2013 Office visit Verónica Seay MD 03/13/2013 [facility] Shawanda Monterroso MD 01/23/2013 Office visit Virginia Pollock PIPE FOREMAN 11/27/2012 Office visit Virginia Pollock PIPE FOREMAN 11/02/2012 Office visit Verónica Seay MD 10/16/2012 Office visit Verónica Seay MD 06/27/2012 Office visit Lai Sharp MD 05/10/2012 Office visit Lai Sharp MD 04/19/2012 Office visit Lai Sharp MD 02/17/2012 Office visit Verónica Seay MD 12/16/2011 Office visit Verónica Seay MD 11/05/2011 [facility] Shawanda Monterroso MD 09/29/2011 Office visit Verónica Seay MD 09/21/2011 Office visit Verónica Seay MD 09/08/2011 Office visit Verónica Seay MD 08/16/2011 Office visit Verónica Seay MD 08/13/2011 Nurse visit Verónica Seay MD 08/12/2011 Nurse visit Verónica Seay MD 08/11/2011 Office visit Verónica Seay MD 07/08/2011 Office visit Tanya Rodriguez PIPE FOREMAN 04/13/2011 Office visit Verónica Seay MD 01/21/2011 [...]
[2017-09-30 12:59] LABS: ALANINE AMINOTRANSFERASE 12 U/L (0-55); ALBUMIN 4.3 GM/DL (3.2-4.5); ALKALINE PHOSPHATASE 97 U/L (40-136); BILIRUBIN,TOTAL 0.4 MG/DL (0.1-1.0); BUN/CREATININE RATIO 30; CALCIUM 9.7 MG/DL (8.5-10.1); CARBON DIOXIDE 25 MMOL/L (21-32); CHLORIDE 109 MMOL/L (98-107); CREATININE SERUM 1.08 MG/DL (0.60-1.30); GFR ESTIMATED 48; GLUCOSE 101 MG/DL (70-105); POTASSIUM 3.9 MMOL/L (3.6-5.0); SODIUM 143 MMOL/L (135-145); TOTAL PROTEIN 7.6 GM/DL (6.4-8.2)
--- OUTSIDE RECORDS SUMMARY | 2017-09-30 13:01 | XMS REPORT ---
Author Eliseo Green [facility] Address [address] [place], [place] [id number] Care Team Providers Care Hand Brim Ironer Name Role Phone Eliseo Malave PCP Eliseo [...] 1 capsule by oral route daily vitamin E80-kahai acid 500-400 mcg oral tablet take 1 [...] TAKE ONE TABLET BY MOUTH ONCE DAILY alprazolam 0.25 mg oral tablet 05/11/2017 08/09/2017 take 1 tablet by oral route 2 times a day as needed for 30 days meloxicam 7.5 mg oral tablet 05/11/2017 take [...] 3 times per day for 7 days Discontinued Name Start Date [...] HC BMI BSA BMI Percentile O2 Sat(%) 07/05/2017 11:09:00 AM 142 mmHg 62 mmHg [...] 10:48AM Atrial Fibrillation Apr 20 2010 10:48AM [facility] (Current) Use Of Anticoagulants Apr 20 2010 10:48AM Hypothyroidism, Acquired Apr 20 2010 10:48AM Anxiety Disorder Apr 20 2010 10:48AM Chronic Obstructive Pulmonary Disease Apr 20 2010 10:48AM Essential Hypertension May 20 2010 1:10PM Hyperlipidemia May 20 2010 1:10PM Atrial Fibrillation May 20 2010 1:10PM 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 Manager (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) Use Of Anticoagulants May 20 2010 1:10PM Hypothyroidism, Acquired May 20 2010 1:10PM Anxiety Disorder May 20 2010 1:10PM Chronic Obstructive Pulmonary Disease May 20 2010 1:10PM Neuropathy May 20 2010 1:10PM Essential Hypertension Aug 21 2010 9:25AM Hyperlipidemia Aug 21 2010 9:25AM Atrial Fibrillation Aug 21 2010 9:25AM It Account Manager (Current) Use Of Anticoagulants Aug 21 [...] 10:07AM Atrial Fibrillation Sep 30 2010 10:07AM [facility] (Current) Use Of Anticoagulants Sep 30 2010 [...] 2:08PM Atrial Fibrillation Oct 05 2010 2:08PM [facility] (Current) Use Of Anticoagulants Oct 05 2010 [...] 2:12PM Atrial Fibrillation Oct 19 2010 2:12PM [facility] (Current) Use Of Anticoagulants Oct 19 2010 [...] 2:58PM Atrial Fibrillation Nov 16 2010 2:58PM It Account Manager (Current) Use Of Anticoagulants Nov 16 [...] 10:33AM Atrial Fibrillation Aug 11 2011 10:33AM It Account Manager (Current) Use Of Anticoagulants Aug 11 [...] 11:10AM Atrial Fibrillation Aug 16 2011 11:10AM It Account Manager (Current) Use Of Anticoagulants Aug 16 [...] 1:51PM Atrial Fibrillation Sep 08 2011 1:51PM It Account Manager (Current) Use Of Anticoagulants Sep 08 [...] 3:55PM Atrial Fibrillation Sep 29 2011 3:55PM It Account Manager (Current) Use Of Anticoagulants Sep 29 [...] 1:08PM Atrial Fibrillation Dec 16 2011 1:08PM [facility] (Current) Use Of Anticoagulants Dec 16 2011 [...] 4:15PM Atrial Fibrillation Sep 6 2011 4:15PM [facility] (Current) Use Of Anticoagulants Sep 6 2011 [...] 1:24PM Atrial Fibrillation Oct 16 2012 1:24PM [facility] (Current) Use Of Anticoagulants Oct 16 2012 [...] 1:08PM Atrial Fibrillation May 07 2013 1:08PM It Account Manager (Current) Use Of Anticoagulants May 07 [...] 2017 11:14AM Arthritis Jul 05 2017 11:14AM Payers Insurance Name Company Name Plan Name Plan Number Policy Number Policy Group Number Start Date Medicare RHC Medicare RHC [id number] N/A [facility] [id number] N/A [employer] Equitable & You [id number] Tuesday, 2015 Medicare Part A Medicare - Lab/Xray [id number] N/A Medicare Part B Medicare Of [place] [id number] Wednesday, November 11, 1992 [employer] [facility] [id number] Wednesday, September 03, 2008 Medicare Part A Medicare Part A [id number] N/A [employer] Equitable Life MC Supplement [id number] Thursday, June 13, 2013 [employer] Equitable & You [id number] Thursday, June 13, 2013 [facility] [id number] N/A History of Encounters Visit Date Visit Type Provider 07/05/[address] Eliseo Malave MD 02/11/2017 [facility] Shawanda Monterroso MD 01/11/[address] [...] Office visit Jose Roberto Troy APRN 02/06/2015 [facility] Giana Mendes MD 02/06/2015 Office visit Collette Gonzales MD 12/30/2014 Office visit Jose Roberto Troy APRN 12/26/2014 Office visit Jose Roberto Troy APRN 11/21/2014 [facility] Shawanda Monterroso MD 11/21/2014 Office visit Collette Gonzales MD 11/18/2014 Office visit Virginia Pollock PLANT MAINTENANCE SUPERVISOR 10/08/2014 Nurse visit Jose Roberto Troy PLANT MAINTENANCE SUPERVISOR 09/24/2014 Office visit Virginia Pollock PLANT MAINTENANCE SUPERVISOR 07/17/2014 Office visit Collette Gonzales MD 04/15/2014 Office visit Collette Gonzales MD 03/07/2014 Office visit Mariano Fonseca MD 01/17/2014 Office visit Virginia Pollock PLANT MAINTENANCE SUPERVISOR 09/18/2013 Office visit Collette Gonzales MD 06/29/2013 Office visit Jose Roberto Troy PLANT MAINTENANCE SUPERVISOR 05/07/2013 Office visit Verónica Seay MD 03/13/2013 [facility] Shawanda Monterroso MD 01/23/2013 Office visit Virginia Pollock PLANT MAINTENANCE SUPERVISOR 11/27/2012 Office visit Virginia Pollock PLANT MAINTENANCE SUPERVISOR 11/02/2012 Office visit Verónica Seay MD 10/16/2012 [...] Verónica Seay MD 08/12/2011 Nurse visit Verónica Seya MD 08/11/2011 Office visit Verónica Seay MD 07/08/2011 Office visit Tanya Rodriguez PLANT MAINTENANCE SUPERVISOR 04/13/2011 Office visit Verónica Seay MD 01/21/2011 [...]
--- OUTSIDE RECORDS SUMMARY | 2017-09-30 13:02 | XMS REPORT ---
Author Author [facility] Organization [facility] Address [address] [place], [place] [address] Care Team Providers Care Edge Inker Heels Name Role Phone PCP Unavailable Allergies and Adverse Reactions Name Reaction Notes doxycycline hyclate hives/ vomiting Plan of Treatment Planned Activity Comments Planned Date Planned Time Plan/Goal ASSAY THYROID STIM HORMONE 10/16/2012 12:00 AM PROTHROMBIN TIME 10/18/2014 12:00 AM Medications Active Name Start Date [...] oral route once daily for 30 days warfarin oral tablet 1 mg 10/11/2014 11/10/2014 take 1 tablet by oral route three x per week Name Start Date Expiration Date SIG Comments [...] 12:00 AM Blood Pressure Check-no charge Reviewed 01/15/2011 12:00 AM URINALYSIS AUTO W/SCOPE [...] PM PROTIME POCT 70.50 secsINR POCT 5.9 History Of Immunizations Name Date Admin Mfg [...] 10:48AM Atrial Fibrillation Apr 20 2010 10:48AM Retirement (Current) Use Of Anticoagulants Apr 20 2010 10:48AM Hypothyroidism, Acquired Apr 20 2010 10:48AM Anxiety Disorder Apr 20 2010 10:48AM Chronic Obstructive Pulmonary Disease Apr 20 2010 10:48AM Essential Hypertension May 20 2010 1:10PM Hyperlipidemia May 20 2010 1:10PM Atrial Fibrillation May 20 2010 1:10PM [facility] (Current) Use Of Anticoagulants May 20 2010 1:10PM Hypothyroidism, Acquired May 20 2010 1:10PM Anxiety Disorder May 20 2010 1:10PM Chronic Obstructive Pulmonary Disease May 20 2010 1:10PM Neuropathy May 20 2010 1:10PM Essential Hypertension Aug 21 2010 9:25AM Hyperlipidemia Aug 21 2010 9:25AM Atrial Fibrillation Aug 21 2010 9:25AM [facility] (Current) Use Of Anticoagulants Aug 21 2010 9:25AM Hypothyroidism, Acquired Aug 21 2010 9:25AM Neuropathy Aug 21 2010 9:25AM Anxiety Disorder Aug 21 2010 9:25AM Chronic Obstructive Pulmonary Disease Aug 21 2010 9:25AM Essential Hypertension Sep 07 2010 4:10PM Hyperlipidemia Sep 07 2010 4:10PM Atrial Fibrillation Sep 07 2010 4:10PM [facility] (Current) Use Of Anticoagulants Sep 07 2010 4:10PM Hypothyroidism, Acquired Sep 07 2010 4:10PM Neuropathy Sep 07 2010 4:10PM Anxiety Disorder Sep 07 2010 4:10PM Chronic Obstructive Pulmonary Disease Sep 07 2010 4:10PM Diarrhea Sep 07 2010 4:10PM Essential Hypertension Sep 30 2010 10:07AM Hyperlipidemia Sep 30 2010 10:07AM Atrial Fibrillation Sep 30 2010 10:07AM 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 Sep 30 [...] 2:08PM Atrial Fibrillation Oct 05 2010 2:08PM 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 Oct 05 [...] 2:12PM Atrial Fibrillation Oct 19 2010 2:12PM 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 Oct 19 2010 [...] 2:58PM Atrial Fibrillation Nov 16 2010 2:58PM [facility] (Current) Use Of Anticoagulants Nov 16 2010 [...] 2:04PM Atrial Fibrillation Jan 21 2011 2:04PM 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 Jan 21 [...] 10:00AM Atrial Fibrillation Apr 13 2011 10:00AM 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 Apr 13 [...] 10:33AM Atrial Fibrillation Aug 11 2011 10:33AM 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 Aug 11 [...] 11:10AM Atrial Fibrillation Aug 16 2011 11:10AM Retirement (Current) Use Of Anticoagulants Aug 16 2011 [...] 1:51PM Atrial Fibrillation Sep 08 2011 1:51PM [facility] (Current) Use Of Anticoagulants Sep 08 2011 [...] 3:51PM Atrial Fibrillation Sep 21 2011 3:51PM [facility] (Current) Use Of Anticoagulants Sep 21 2011 [...] 3:55PM Atrial Fibrillation Sep 29 2011 3:55PM 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 Sep 29 [...] 1:08PM Atrial Fibrillation Dec 16 2011 1:08PM 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 Dec 16 [...] Hyperlipidemia Sep 6 2011 4:15PM Atrial Fibrillation Feb 6 2011 4:15PM 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 Feb 6 2011 [...] 1:24PM Atrial Fibrillation Oct 16 2012 1:24PM 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 Oct 16 [...] 1:08PM Atrial Fibrillation May 07 2013 1:08PM [facility] (Current) Use Of Anticoagulants May 07 2013 [...] 2014 3:49PM Hyperlipidemia b 2014 3:49PM hypothyroid b 2014 3:49PM Osteopenia b 2014 3:49PM Numbness and Tingling Jul 17 2014 3:49PM Orthostatic hypotension Sep 24 2014 1:21PM Anticoagulant long-term use Oct 04 2014 11:22AM Hypertension, Benign Essential Oct 08 2014 4:16PM Anticoagulation monitoring, INR range 2-3 Oct 18 2014 8:31AM Payers Insurance Name Company Name Plan Name Plan Number Policy Number Policy Group Number Start Date Medicare Part A Medicare Part A [id number] N/A [facility] [id number] N/A [employer] Equitable Life [place] Supplement [id number] Thursday, 2013 [employer] Equitable & You [id number] Thursday, 2013 Medicare Part B Medicare Of [place] [id number] Wednesday, [facility] [id number] Wednesday, 2008 History of Encounters Visit Date Visit Type Provider 10/08/2014 Nurse visit Jose Roberto Troy WIRELESS FIELD TECHNICIAN 09/24/2014 Office visit Virginia Pollock WIRELESS FIELD TECHNICIAN 07/17/2014 Office visit Collette Gonzales MD 04/15/2014 Office visit Collette Gonzales MD 03/07/2014 Office visit Mariano Fonseca MD 01/17/2014 Office visit Virginia Pollock WIRELESS FIELD TECHNICIAN 09/18/2013 Office visit Collette Gonzales MD 06/29/2013 Office visit Jose Roberto Troy WIRELESS FIELD TECHNICIAN 05/07/2013 Office visit Verónica Seay MD 03/13/2013 [facility] Ubaldo Monterroso MD 01/23/2013 Office visit Virginia Pollock WIRELESS FIELD TECHNICIAN 11/27/2012 Office visit Virginia Pollock WIRELESS FIELD TECHNICIAN 11/02/2012 Office visit Verónica Seay MD 10/16/2012 Office visit Verónica Seay MD 06/27/2012 Office visit Lai Sharp MD 05/10/2012 Office visit Lai Sharp MD 04/19/2012 Office visit Lai Sharp MD 02/17/2012 Office visit Verónica Seay MD 12/16/2011 Office visit Verónica Seay MD 11/05/2011 [facility] Ubaldo Monterroso MD 09/29/2011 Office visit Verónica Seay MD 09/21/2011 Office visit Verónica Seay MD 09/08/2011 Office visit Verónica Seay MD 08/16/2011 Office visit Verónica Seay MD 08/13/2011 Nurse visit Verónica Seay MD 08/12/2011 Nurse visit Verónica Seay MD 08/11/2011 Office visit Verónica Seay MD 07/08/2011 Office visit Tanya Rodriguez WIRELESS FIELD TECHNICIAN 04/13/2011 Office visit Verónica Seay MD 01/21/2011 [...]
--- OUTSIDE RECORDS SUMMARY | 2017-09-30 13:05 | XMS REPORT ---
Author Jose Roberto Park [facility] Address [address] [place], [place] [address] Care Team Providers Care Certified Legal Secretary Specialist Name Role Phone Jose Roberto Troy PCP Allergies and Adverse Reactions Name Reaction [...] 05/08/2014 TAKE ONE TABLET BY MOUTH DAILY Vitamin D2 50,000 unit oral capsule 11/26/2014 take 1 capsule (50,000 unit ) by oral route once weekly x 12 weeks pravastatin 40 mg oral tablet 01/23/2015 01/18/2016 TAKE 1 TABLET BY MOUTH EVERY DAY pravastatin 40 mg oral tablet 01/24/2015 TAKE ONE TABLET BY MOUTH ONCE DAILY levothyroxine 75 mcg oral tablet 02/05/2015 TAKE ONE TABLET BY MOUTH ONCE DAILY Probiotic oral metoprolol tartrate 25 mg oral tablet take 1 tablet (25 mg) by oral route once daily Prilosec 20 mg oral capsule,delayed release(DR/EC) take 1 capsule (20 mg ) by oral route once daily before a meal Benadryl 25 mg oral capsule take 2 capsules (50 mg) by oral route every 4-6 hours as needed melatonin 10 mg sublingual tablet, sublingual place 1 tablet under tongue by translingual route once a day (at bedtime) Vitamin B-12 2,000 mcg oral tablet extended release take 1 tablet by oral route daily Stool Softener oral Vitamin B-1 oral aspirin 325 mg oral tablet take 1 tablet (325 mg) by oral route once daily Tylenol 325 mg oral tablet take 2 tablets (650 mg) by oral route every 6 hours as needed alprazolam 0.25 mg oral tablet 09/24/2015 take 1 tablet by oral route 2 times a day as needed Name Start Date Expiration Date SIG Comments [...] HC BMI BSA BMI Percentile O2 Sat(%) 09/17/2015 11:07:00 AM 130 mmHg 80 mmHg [...] 10:48AM Atrial Fibrillation Apr 20 2010 10:48AM 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 Apr 20 2010 10:48AM Hypothyroidism, Acquired Apr 20 2010 10:48AM Anxiety Disorder Apr 20 2010 10:48AM Chronic Obstructive Pulmonary Disease Apr 20 2010 10:48AM Essential Hypertension May 20 2010 1:10PM Hyperlipidemia May 20 2010 1:10PM Atrial Fibrillation May 20 2010 1:10PM 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 May 20 2010 1:10PM Hypothyroidism, Acquired May 20 2010 1:10PM Anxiety Disorder May 20 2010 1:10PM Chronic Obstructive Pulmonary Disease May 20 2010 1:10PM Neuropathy May 20 2010 1:10PM Essential Hypertension Aug 21 2010 9:25AM Hyperlipidemia Aug 21 2010 9:25AM Atrial Fibrillation Aug 21 2010 9:25AM Group Home (Current) Use Of Anticoagulants Aug 21 2010 9:25AM Hypothyroidism, Acquired Aug 21 2010 9:25AM Neuropathy Aug 21 2010 9:25AM Anxiety Disorder Aug 21 2010 9:25AM Chronic Obstructive Pulmonary Disease Aug 21 2010 9:25AM Essential Hypertension Sep 07 2010 4:10PM Hyperlipidemia Sep 07 2010 4:10PM Atrial Fibrillation Sep 07 2010 4:10PM 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 Sep 07 2010 4:10PM Hypothyroidism, Acquired Sep 07 2010 4:10PM Neuropathy Sep 07 2010 4:10PM Anxiety Disorder Sep 07 2010 4:10PM Chronic Obstructive Pulmonary Disease Sep 07 2010 4:10PM Diarrhea Sep 07 2010 4:10PM Essential Hypertension Sep 30 2010 10:07AM Hyperlipidemia Sep 30 2010 10:07AM Atrial Fibrillation Sep 30 2010 10:07AM 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 Sep 30 2010 [...] 2:08PM Atrial Fibrillation Oct 05 2010 2:08PM Group Home (Current) Use Of Anticoagulants Oct 05 [...] 2:12PM Atrial Fibrillation Oct 19 2010 2:12PM Group Home (Current) Use Of Anticoagulants Oct 19 2010 [...] 2:58PM Atrial Fibrillation Nov 16 2010 2:58PM Group Home (Current) Use Of Anticoagulants Nov 16 [...] 2:04PM Atrial Fibrillation Jan 21 2011 2:04PM Group Home (Current) Use Of Anticoagulants Jan 21 2011 [...] 10:00AM Atrial Fibrillation Apr 13 2011 10:00AM Group Home (Current) Use Of Anticoagulants Apr 13 [...] 10:33AM Atrial Fibrillation Aug 11 2011 10:33AM 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 Aug 11 2011 [...] 11:10AM Atrial Fibrillation Aug 16 2011 11:10AM Group Home (Current) Use Of Anticoagulants Aug 16 2011 [...] 1:51PM Atrial Fibrillation Sep 08 2011 1:51PM Group Home (Current) Use Of Anticoagulants Sep 08 [...] 3:51PM Atrial Fibrillation Sep 21 2011 3:51PM Group Home (Current) Use Of Anticoagulants Sep 21 [...] 3:55PM Atrial Fibrillation Sep 29 2011 3:55PM 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 Sep 29 2011 [...] 1:08PM Atrial Fibrillation Dec 16 2011 1:08PM 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 Dec 16 2011 [...] Sep 6 2011 4:15PM Atrial Fibrillation Sep 2011 4:15PM 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 Sep 2011 4:15PM [...] 1:24PM Atrial Fibrillation Oct 16 2012 1:24PM Group Home (Current) Use Of Anticoagulants Oct 16 [...] 1:08PM Atrial Fibrillation May 07 2013 1:08PM Group Home (Current) Use Of Anticoagulants May 07 [...] 2015 11:10AM Hypertension Sep 17 2015 11:10AM Payers Insurance Name Company Name Plan Name Plan Number Policy Number Policy Group Number Start Date Medicare Part A Medicare [facility] [id number] N/A [employer] Equitable [employer] You [id number] Tuesday, 2015 Medicare Part B Medicare Of [place] [id number] Wednesday, [id number] Wednesday, 2008 Medicare Part A Medicare Part A [id number] N/A [employer] Equitable Life [employer] Supplement [id number] Thursday, 2013 [employer] Equitable & You [id number] Thursday, 2013 [facility] [place] [id number] N/A History of Encounters Visit Date Visit Type Provider 09/17/2015 Office visit Jose Roberto Troy FIELD NATURALIST 02/06/2015 [facility] Giana Mendes MD 02/06/2015 Office visit Collette Gonzales MD 12/30/2014 Office visit Jose Roberto Troy FIELD NATURALIST 12/26/2014 Office visit Jose Roberto Troy FIELD NATURALIST 11/21/2014 [facility] Shawanda Monterroso MD 11/21/2014 Office visit Collette Gonzales MD 11/18/2014 Office visit Virginia Pollock FIELD NATURALIST 10/08/2014 Nurse visit Jose Roberto Troy FIELD NATURALIST 09/24/2014 Office visit Virginia Pollock FIELD NATURALIST 07/17/2014 Office visit Collette Gonzales MD 04/15/2014 Office visit Collette Gonzales MD 03/07/2014 Office visit Mariano Fonseca MD 01/17/2014 Office visit Virginia Pollock FIELD NATURALIST 09/18/2013 Office visit Collette Gonzales MD 06/29/2013 Office visit Jose Roberto Troy FIELD NATURALIST 05/07/2013 Office visit Verónica Seay MD 03/13/2013 [facility] Shawanda Monterroso MD 01/23/2013 Office visit Virginia Pollock FIELD NATURALIST 11/27/2012 Office visit Virginia Pollock FIELD NATURALIST 11/02/2012 Office visit Verónica Seay MD 10/16/2012 Office visit Verónica Seay MD 06/27/2012 Office visit Lai Sharp MD 05/10/2012 Office visit Lai Sharp MD 04/19/2012 Office visit Lai Sharp MD 02/17/2012 Office visit Verónica Seay MD 12/16/2011 Office visit Verónica Seay MD 11/05/2011 [facility] Shawanda Monterroso MD 09/29/2011 Office visit Verónica Seay MD 09/21/2011 Office visit Verónica Seay MD 09/08/2011 Office visit Verónica Seay MD 08/16/2011 Office visit Verónica Seay MD 08/13/2011 Nurse visit Verónica Seay MD 08/12/2011 Nurse visit Verónica Seay MD 08/11/2011 Office visit Verónica Seay MD 07/08/2011 Office visit Tanya Rodriguez FIELD NATURALIST 04/13/2011 Office visit Verónica Seay MD 01/21/2011 [...]
--- OUTSIDE RECORDS SUMMARY | 2017-09-30 13:07 | XMS REPORT ---
Author Author Eliseo Malave [facility] Address [address] [place], [place] [id number] Care Team Providers Care Machine Lacer Name Role Phone Eliseo Malave PCP Allergies [...] Atrial Fibrillation Apr 20 2010 10:48AM Senior Living (Current) Use Of Anticoagulants Apr 20 2010 10:48AM Hypothyroidism, Acquired Apr 20 2010 10:48AM Anxiety Disorder Apr 20 2010 10:48AM Chronic Obstructive Pulmonary Disease Apr 20 2010 10:48AM Essential Hypertension May 20 2010 1:10PM Hyperlipidemia May 20 2010 1:10PM Atrial Fibrillation May 20 2010 1:10PM Supervisor Metal Cans (Current) Use Of Anticoagulants May 20 2010 1:10PM Hypothyroidism, Acquired May 20 2010 1:10PM Anxiety Disorder May 20 2010 1:10PM Chronic Obstructive Pulmonary Disease May 20 2010 1:10PM Neuropathy May 20 2010 1:10PM Essential Hypertension Aug 21 2010 9:25AM Hyperlipidemia Aug 21 2010 9:25AM Atrial Fibrillation Aug 21 2010 9:25AM Supervisor Metal Cans (Current) Use Of Anticoagulants Aug 21 2010 9:25AM Hypothyroidism, Acquired Aug 21 2010 9:25AM Neuropathy Aug 21 2010 9:25AM Anxiety Disorder Aug 21 2010 9:25AM Chronic Obstructive Pulmonary Disease Aug 21 2010 9:25AM Essential Hypertension Sep 07 2010 4:10PM Hyperlipidemia Sep 07 2010 4:10PM Atrial Fibrillation Sep 07 2010 4:10PM Supervisor Metal Cans (Current) Use Of Anticoagulants Sep 07 2010 4:10PM Hypothyroidism, Acquired Sep 07 2010 4:10PM Neuropathy Sep 07 2010 4:10PM Anxiety Disorder Sep 07 2010 4:10PM Chronic Obstructive Pulmonary Disease Sep 07 2010 4:10PM Diarrhea Sep 07 2010 4:10PM Essential Hypertension Sep 30 2010 10:07AM Hyperlipidemia Sep 30 2010 10:07AM Atrial Fibrillation Sep 30 2010 10:07AM Supervisor Metal Cans (Current) Use Of Anticoagulants Sep 30 2010 [...] 2:08PM Atrial Fibrillation Oct 05 2010 2:08PM Supervisor Metal Cans (Current) Use Of Anticoagulants Oct 05 2010 [...] Atrial Fibrillation Oct 19 2010 2:12PM Senior Living (Current) Use Of Anticoagulants Oct 19 2010 [...] 2:58PM Atrial Fibrillation Nov 16 2010 2:58PM Supervisor Metal Cans (Current) Use Of Anticoagulants Nov 16 2010 [...] 2:04PM Atrial Fibrillation Jan 21 2011 2:04PM Supervisor Metal Cans (Current) Use Of Anticoagulants Jan 21 2011 [...] 10:00AM Atrial Fibrillation Apr 13 2011 10:00AM Supervisor Metal Cans (Current) Use Of Anticoagulants Apr 13 2011 [...] Atrial Fibrillation Aug 11 2011 10:33AM Senior Living (Current) Use Of Anticoagulants Aug 11 2011 [...] 11:10AM Atrial Fibrillation Aug 16 2011 11:10AM Supervisor Metal Cans (Current) Use Of Anticoagulants Aug 16 2011 [...] Atrial Fibrillation Sep 08 2011 1:51PM Senior Living (Current) Use Of Anticoagulants Sep 08 2011 [...] 3:51PM Atrial Fibrillation Sep 21 2011 3:51PM Supervisor Metal Cans (Current) Use Of Anticoagulants Sep 21 2011 [...] 3:55PM Atrial Fibrillation Sep 29 2011 3:55PM Supervisor Metal Cans (Current) Use Of Anticoagulants Sep 29 2011 [...] 1:08PM Atrial Fibrillation Dec 16 2011 1:08PM Supervisor Metal Cans (Current) Use Of Anticoagulants Dec 16 2011 [...] 4:15PM Atrial Fibrillation Feb 17 2012 4:15PM Supervisor Metal Cans (Current) Use Of Anticoagulants Sep 6 2011 [...] 1:24PM Atrial Fibrillation Oct 16 2012 1:24PM Supervisor Metal Cans (Current) Use Of Anticoagulants Oct 16 2012 [...] Atrial Fibrillation May 07 2013 1:08PM Senior Living (Current) Use Of Anticoagulants May 07 2013 [...] Skin Of Face Nov 25 2015 10:26PM Payers Insurance Name Company Name Plan Name Plan Number Policy Number Policy Group Number Start Date Medicare Part A Medicare RHC [id number] N/A [employer] Equitable & You [id number] Tuesday, 2015 Medicare Part A Medicare - Lab/Xray [id number] N/A Medicare Part B Medicare Of [place] [id number] Wednesday, November 11, 1992 [facility] [id number] Wednesday, September 03, 2008 Medicare Part A Medicare Part A [id number] N/A [employer] Equitable Life MC Supplement [id number] Thursday, June 13, 2013 [employer] Equitable & You [id number] Thursday, June 13, [address] [facility] [id number] N/A History of Encounters Visit Date Visit Type Provider 11/24/[address] Eliseo Malave MD 10/03/[address] Eliseo Malave MD 09/17/2015 Office visit Jose Roberto Troy APRN 02/06/2015 [facility] Giana Mendes MD 02/06/2015 Office visit Collette Gonzales MD 12/30/2014 Office visit Jose Roberto Troy APRN 12/26/2014 Office visit Jose Roberto Troy APRN 11/21/2014 Hospital Shawanda Monterroso MD 11/21/2014 Office visit Collette Gonzales MD 11/18/2014 Office visit Virginia Pollock LIVESTOCK TRUCKER 10/08/2014 Nurse visit Jose Roberto Troy APRN 09/24/2014 Office visit Virginia Pollock LIVESTOCK TRUCKER 07/17/2014 Office visit Collette Gonzales MD 04/15/2014 Office visit Collette Gonzales MD 03/07/2014 Office visit Mariano Fonseca MD 01/17/2014 Office visit Virginia Pollock LIVESTOCK TRUCKER 09/18/2013 Office visit Collette Gonzales MD 06/29/2013 Office visit Jose Roberto Troy LIVESTOCK TRUCKER 05/07/2013 Office visit Verónica Seay MD 03/13/2013 Hospital Shawanda Monterroso MD 01/23/2013 Office visit Virginia Rowe Phill LIVESTOCK TRUCKER 11/27/2012 Office visit Virginiangozi Pollock LIVESTOCK TRUCKER 11/02/2012 Office visit Verónica Seay MD 10/16/2012 Office visit Verónica Seay MD 06/27/2012 Office visit Lai Sharp MD 05/10/2012 Office visit Lai Sharp MD 04/19/2012 Office visit Lai Sharp MD 02/17/2012 Office visit Verónica Seay MD 12/16/2011 Office visit Verónica Seay MD 11/05/2011 [facility] Shawanda Monterroso MD 09/29/2011 Office visit Verónica Seay MD 09/21/2011 Office visit Verónica Seay MD 09/08/2011 Office visit Verónica Seay MD 08/16/2011 Office visit Verónica Seay MD 08/13/2011 Nurse visit Verónica Seay MD 08/12/2011 Nurse visit Verónica Seay MD 08/11/2011 Office visit Verónica Seay MD 07/08/2011 Office visit Tanya Rodriguez LIVESTOCK TRUCKER 04/13/2011 Office visit Verónica Seay MD 01/21/2011 Office visit Verónica Seay MD 12/01/2010 Office visit Betty FREEMAN 11/16/2010 Office visit Verónica Seay MD 10/19/2010 Office visit Verónica Seay MD 10/05/2010 Office visit Verónica Seay MD 09/30/2010 Office visit Verónica Seay MD 09/07/2010 Office visit Verónica Seay MD 08/21/2010 Office visit Verónica Seay MD 05/20/2010 Office visit Verónica eSay MD 04/20/2010 Office visit Verónica Seay MD 09/17/2009 Office visit Verónica Seay MD 03/19/2009 Office visit Verónica Seay MD 03/04/2009 Office visit Verónica Seay MD
--- OUTSIDE RECORDS SUMMARY | 2017-09-30 13:10 | XMS REPORT ---
Author Author Eliseo Malave [facility] Address [address] [place], [place] [id number] Care Team Providers Care Seismology Technical Officer Name Role Phone Eliseo Malave PCP Allergies [...] tablet 07/17/2014 1/2 tablet on mon and and [...] HC BMI BSA BMI Percentile O2 Sat(%) 10/03/2015 1:29:00 PM 128 mmHg 80 mmHg [...] 10:48AM Atrial Fibrillation Apr 20 2010 10:48AM Jail (Current) Use Of Anticoagulants Apr 20 2010 10:48AM Hypothyroidism, Acquired Apr 20 2010 10:48AM Anxiety Disorder Apr 20 2010 10:48AM Chronic Obstructive Pulmonary Disease Apr 20 2010 10:48AM Essential Hypertension May 20 2010 1:10PM Hyperlipidemia May 20 2010 1:10PM Atrial Fibrillation May 20 2010 1:10PM Organisation And Methods Analyst (Current) Use Of Anticoagulants May 20 2010 1:10PM Hypothyroidism, Acquired May 20 2010 1:10PM Anxiety Disorder May 20 2010 1:10PM Chronic Obstructive Pulmonary Disease May 20 2010 1:10PM Neuropathy May 20 2010 1:10PM Essential Hypertension Aug 21 2010 9:25AM Hyperlipidemia Aug 21 2010 9:25AM Atrial Fibrillation Aug 21 2010 9:25AM Jail (Current) Use Of Anticoagulants Aug 21 2010 9:25AM Hypothyroidism, Acquired Aug 21 2010 9:25AM Neuropathy Aug 21 2010 9:25AM Anxiety Disorder Aug 21 2010 9:25AM Chronic Obstructive Pulmonary Disease Aug 21 2010 9:25AM Essential Hypertension Sep 07 2010 4:10PM Hyperlipidemia Sep 07 2010 4:10PM Atrial Fibrillation Sep 07 2010 4:10PM Organisation And Methods Analyst (Current) Use Of Anticoagulants Sep 07 2010 4:10PM Hypothyroidism, Acquired Sep 07 2010 4:10PM Neuropathy Sep 07 2010 4:10PM Anxiety Disorder Sep 07 2010 4:10PM Chronic Obstructive Pulmonary Disease Sep 07 2010 4:10PM Diarrhea Sep 07 2010 4:10PM Essential Hypertension Sep 30 2010 10:07AM Hyperlipidemia Sep 30 2010 10:07AM Atrial Fibrillation Sep 30 2010 10:07AM Jail (Current) Use Of Anticoagulants Sep 30 2010 [...] 2:08PM Atrial Fibrillation Oct 05 2010 2:08PM Jail (Current) Use Of Anticoagulants Oct 05 2010 [...] 2:12PM Atrial Fibrillation Oct 19 2010 2:12PM Organisation And Methods Analyst (Current) Use Of Anticoagulants Oct 19 2010 [...] 2:58PM Atrial Fibrillation Nov 16 2010 2:58PM Organisation And Methods Analyst (Current) Use Of Anticoagulants Nov 16 2010 [...] 2:04PM Atrial Fibrillation Jan 21 2011 2:04PM Organisation And Methods Analyst (Current) Use Of Anticoagulants Jan 21 2011 [...] 10:00AM Atrial Fibrillation Apr 13 2011 10:00AM Organisation And Methods Analyst (Current) Use Of Anticoagulants Apr 13 2011 [...] 10:33AM Atrial Fibrillation Aug 11 2011 10:33AM Jail (Current) Use Of Anticoagulants Aug 11 2011 [...] 11:10AM Atrial Fibrillation Aug 16 2011 11:10AM Organisation And Methods Analyst (Current) Use Of Anticoagulants Aug 16 2011 [...] 1:51PM Atrial Fibrillation Sep 08 2011 1:51PM Organisation And Methods Analyst (Current) Use Of Anticoagulants Sep 08 2011 [...] 3:51PM Atrial Fibrillation Sep 21 2011 3:51PM Organisation And Methods Analyst (Current) Use Of Anticoagulants Sep 21 2011 [...] 3:55PM Atrial Fibrillation Sep 29 2011 3:55PM Jail (Current) Use Of Anticoagulants Sep 29 2011 [...] 1:08PM Atrial Fibrillation Dec 16 2011 1:08PM Organisation And Methods Analyst (Current) Use Of Anticoagulants Dec 16 2011 [...] 4:15PM Atrial Fibrillation Feb 17 2012 4:15PM Organisation And Methods Analyst (Current) Use Of Anticoagulants Feb 17 2012 [...] 1:24PM Atrial Fibrillation Oct 16 2012 1:24PM Organisation And Methods Analyst (Current) Use Of Anticoagulants Oct 16 2012 [...] 1:08PM Atrial Fibrillation May 07 2013 1:08PM Jail (Current) Use Of Anticoagulants May 07 2013 [...] Idiopathic peripheral neuropathy Oct 03 2015 1:31PM Payers Insurance Name Company Name Plan Name Plan Number Policy Number Policy Group Number Start Date Medicare Part A Medicare RHC [id number] N/A [employer] Equitable & You [id number] Tuesday, 2015 Medicare Part A Medicare - Lab/Xray [id number] N/A Medicare Part B Medicare Of [place] [id number] Wednesday, November 11, 1992 [id number] Wednesday, September 03, 2008 Medicare Part A Medicare Part A [id number] N/A [employer] Equitable Life MC Supplement [id number] Thursday, June 13, 2013 [employer] Equitable & You [id number] Thursday, June 13, 2013 [facility] [id number] N/A History of Encounters Visit Date Visit Type Provider 10/03/[address] Eliseo Malave MD 09/17/2015 Office visit Jose Roberto Troy APRN 02/06/2015 [facility] Giana Mendes MD 02/06/2015 Office visit Collette Gonzales MD 12/30/2014 Office visit Jose Roberto Troy SCRATCH FINISHER 12/26/2014 Office visit Jose Roberto Troy APRN 11/21/2014 [facility] Shawanda Monterroso MD 11/21/2014 Office visit Collette Gonzales MD 11/18/2014 Office visit Virginia Pollock SCRATCH FINISHER 10/08/2014 Nurse visit Jose Roberto Troy SCRATCH FINISHER 09/24/2014 Office visit Virginia Pollock SCRATCH FINISHER 07/17/2014 Office visit Collette Gonzales MD 04/15/2014 Office visit Collette Gonzales MD 03/07/2014 Office visit Mariano Fonseca MD 01/17/2014 Office visit Virginia Pollock SCRATCH FINISHER 09/18/2013 Office visit Collette Gonzales MD 06/29/2013 Office visit Jose Roberto Troy APRN 05/07/2013 Office visit Verónica Seay MD 03/13/2013 Hospital Shawanda Monterroso MD 01/23/2013 Office visit Virginia Pollock SCRATCH FINISHER 11/27/2012 Office visit Virginia Pollock APRN 11/02/2012 Office visit Verónica Seay MD 10/16/2012 Office visit Verónica Seay MD 06/27/2012 Office visit Lai Sharp MD 05/10/2012 Office visit Lai Sharp MD 04/19/2012 Office visit Lai Sharp MD 02/17/2012 Office visit Verónica Seay MD 12/16/2011 Office visit Verónica Seay MD 11/05/2011 [facility] Ubaldo Monterroso MD 09/29/2011 Office visit Verónica Seay MD 09/21/2011 Office visit Verónica Seay MD 09/08/2011 Office visit Verónica Seay MD 08/16/2011 Office visit Verónica Seay MD 08/13/2011 Nurse visit Verónica Seay MD 08/12/2011 Nurse visit Verónica Seay MD 08/11/2011 Office visit Verónica Seay MD 07/08/2011 Office visit Tanya Michael CARSONN 04/13/2011 Office visit Verónica Seay MD 01/21/2011 [...]
--- OUTSIDE RECORDS SUMMARY | 2017-09-30 13:12 | XMS REPORT ---
Author Author [facility] Organization [facility] Address [address] [place], [place] [address] Care Team Providers Care Asphalt Roller Operator Name Role Phone PCP Unavailable Allergies and [...] 10:48AM Atrial Fibrillation Apr 20 2010 10:48AM Histopathologist (Current) Use Of Anticoagulants Apr 20 2010 10:48AM Hypothyroidism, Acquired Apr 20 2010 10:48AM Anxiety Disorder Apr 20 2010 10:48AM Chronic Obstructive Pulmonary Disease Apr 20 2010 10:48AM Essential Hypertension May 20 2010 1:10PM Hyperlipidemia May 20 2010 1:10PM Atrial Fibrillation May 20 2010 1:10PM Shelter (Current) Use Of Anticoagulants May 20 2010 1:10PM Hypothyroidism, Acquired May 20 2010 1:10PM Anxiety Disorder May 20 2010 1:10PM Chronic Obstructive Pulmonary Disease May 20 2010 1:10PM Neuropathy May 20 2010 1:10PM Essential Hypertension Aug 21 2010 9:25AM Hyperlipidemia Aug 21 2010 9:25AM Atrial Fibrillation Aug 21 2010 9:25AM Histopathologist (Current) Use Of Anticoagulants Aug 21 2010 9:25AM Hypothyroidism, Acquired Aug 21 2010 9:25AM Neuropathy Aug 21 2010 9:25AM Anxiety Disorder Aug 21 2010 9:25AM Chronic Obstructive Pulmonary Disease Aug 21 2010 9:25AM Essential Hypertension Sep 07 2010 4:10PM Hyperlipidemia Sep 07 2010 4:10PM Atrial Fibrillation Sep 07 2010 4:10PM Shelter (Current) Use Of Anticoagulants Sep 07 2010 4:10PM Hypothyroidism, Acquired Sep 07 2010 4:10PM Neuropathy Sep 07 2010 4:10PM Anxiety Disorder Sep 07 2010 4:10PM Chronic Obstructive Pulmonary Disease Sep 07 2010 4:10PM Diarrhea Sep 07 2010 4:10PM Essential Hypertension Sep 30 2010 10:07AM Hyperlipidemia Sep 30 2010 10:07AM Atrial Fibrillation Sep 30 2010 10:07AM Histopathologist (Current) Use Of Anticoagulants Sep 30 2010 [...] 2:08PM Atrial Fibrillation Oct 05 2010 2:08PM Shelter (Current) Use Of Anticoagulants Oct 05 2010 [...] 2:12PM Atrial Fibrillation Oct 19 2010 2:12PM Histopathologist (Current) Use Of Anticoagulants Oct 19 2010 [...] 2:58PM Atrial Fibrillation Nov 16 2010 2:58PM Shelter (Current) Use Of Anticoagulants Nov 16 2010 [...] 2:04PM Atrial Fibrillation Jan 21 2011 2:04PM Shelter (Current) Use Of Anticoagulants Jan 21 2011 [...] 10:00AM Atrial Fibrillation Apr 13 2011 10:00AM Histopathologist (Current) Use Of Anticoagulants Apr 13 2011 [...] 10:33AM Atrial Fibrillation Aug 11 2011 10:33AM Histopathologist (Current) Use Of Anticoagulants Aug 11 2011 [...] 11:10AM Atrial Fibrillation Aug 16 2011 11:10AM Shelter (Current) Use Of Anticoagulants Aug 16 2011 [...] 1:51PM Atrial Fibrillation Sep 08 2011 1:51PM Shelter (Current) Use Of Anticoagulants Sep 08 2011 [...] 3:51PM Atrial Fibrillation Sep 21 2011 3:51PM Shelter (Current) Use Of Anticoagulants Sep 21 2011 [...] 3:55PM Atrial Fibrillation Sep 29 2011 3:55PM Histopathologist (Current) Use Of Anticoagulants Sep 29 2011 [...] 1:08PM Atrial Fibrillation Dec 16 2011 1:08PM Shelter (Current) Use Of Anticoagulants Dec 16 2011 [...] 4:15PM Atrial Fibrillation Sep 6 2011 4:15PM Shelter (Current) Use Of Anticoagulants Sep 6 2011 [...] 1:24PM Atrial Fibrillation Oct 16 2012 1:24PM Histopathologist (Current) Use Of Anticoagulants Oct 16 2012 [...] 1:08PM Atrial Fibrillation May 07 2013 1:08PM Histopathologist (Current) Use Of Anticoagulants May 07 2013 [...] Date Medicare Part A Medicare Part A [id number] N/A [facility] [id number] N/A [employer] Equitable Life Supplement [id number] Thursday, 2013 [employer] Equitable [employer] You [id number] Thursday, 2013 Medicare Part B Medicare Of [place] [id number] Wednesday, 1992 [facility] [id number] Wednesday, 2008 History of Encounters Visit Date Visit Type Provider 11/18/2014 Office visit Virginia Pollock DINING SERVICES DIRECTOR 10/08/2014 Nurse visit Jose Roberto Troy DINING SERVICES DIRECTOR 09/24/2014 Office visit Virginia Pollock DINING SERVICES DIRECTOR 07/17/2014 Office visit Collette Gonzales MD 04/15/2014 Office visit Collette Gonzales MD 03/07/2014 Office visit Mariano Fonseca MD 01/17/2014 Office visit Virginia Pollock DINING SERVICES DIRECTOR 09/18/2013 Office visit Collette Gonzales MD 06/29/2013 Office visit Jose Roberto Troy DINING SERVICES DIRECTOR 05/07/2013 Office visit Verónica Seay MD 03/13/2013 Hospital Shawanda Monterroso MD 01/23/2013 Office visit Virginia Pollock DINING SERVICES DIRECTOR 11/27/2012 Office visit Virginia Pollock DINING SERVICES DIRECTOR 11/02/2012 Office visit Verónica Seay MD 10/16/2012 Office visit Verónica Seay MD 06/27/2012 Office visit Lai Sharp MD 05/10/2012 Office visit Lai Sharp MD 04/19/2012 Office visit Lai Sharp MD 02/17/2012 Office visit Verónica Seay MD 12/16/2011 Office visit Verónica Seay MD 11/05/2011 [facility] Shawanda Monterroso MD 09/29/2011 Office visit Verónica Seay MD 09/21/2011 Office visit Verónica Seay MD 09/08/2011 Office visit Verónica Seay MD 08/16/2011 Office visit Verónica Seay MD 08/13/2011 Nurse visit Verónica Seay MD 08/12/2011 Nurse visit Verónica Seay MD 08/11/2011 Office visit Verónica Seay MD 07/08/2011 Office visit Tanya Rodriguez DINING SERVICES DIRECTOR 04/13/2011 Office visit Verónica Seay MD [...]
--- OUTSIDE RECORDS SUMMARY | 2017-09-30 13:14 | XMS REPORT ---
Author Author [facility] Organization [facility] Address [address] [place], [place] [address] Care Team Providers Care Hand Blocker Name Role Phone PCP Unavailable Allergies and [...] CHEST X-RAY 2VW FRONTAL&LATL 11/18/2014 12:00 AM Medications Active Name Start [...] 13.30 g/dLHCT 39.80 %MCV 95.0 fLMCH 31.80 pgHC 33.40 g/dLMPV 10.90 fLPLT 205 %NEUT 78.10 [...] 10:48AM Atrial Fibrillation Apr 20 2010 10:48AM Correction (Current) Use Of Anticoagulants Apr 20 2010 10:48AM Hypothyroidism, Acquired Apr 20 2010 10:48AM Anxiety Disorder Apr 20 2010 10:48AM Chronic Obstructive Pulmonary Disease Apr 20 2010 10:48AM Essential Hypertension May 20 2010 1:10PM Hyperlipidemia May 20 2010 1:10PM Atrial Fibrillation May 20 2010 1:10PM Awnings Mechanic (Current) Use Of Anticoagulants May 20 2010 1:10PM Hypothyroidism, Acquired May 20 2010 1:10PM Anxiety Disorder May 20 2010 1:10PM Chronic Obstructive Pulmonary Disease May 20 2010 1:10PM Neuropathy May 20 2010 1:10PM Essential Hypertension Aug 21 2010 9:25AM Hyperlipidemia Aug 21 2010 9:25AM Atrial Fibrillation Aug 21 2010 9:25AM Correction (Current) Use Of Anticoagulants Aug 21 2010 9:25AM Hypothyroidism, Acquired Aug 21 2010 9:25AM Neuropathy Aug 21 2010 9:25AM Anxiety Disorder Aug 21 2010 9:25AM Chronic Obstructive Pulmonary Disease Aug 21 2010 9:25AM Essential Hypertension Sep 07 2010 4:10PM Hyperlipidemia Sep 07 2010 4:10PM Atrial Fibrillation Sep 07 2010 4:10PM Correction (Current) Use Of Anticoagulants Sep 07 2010 4:10PM Hypothyroidism, Acquired Sep 07 2010 4:10PM Neuropathy Sep 07 2010 4:10PM Anxiety Disorder Sep 07 2010 4:10PM Chronic Obstructive Pulmonary Disease Sep 07 2010 4:10PM Diarrhea Sep 07 2010 4:10PM Essential Hypertension Sep 30 2010 10:07AM Hyperlipidemia Sep 30 2010 10:07AM Atrial Fibrillation Sep 30 2010 10:07AM Correction (Current) Use Of Anticoagulants Sep 30 2010 [...] 2:08PM Atrial Fibrillation Oct 05 2010 2:08PM Awnings Mechanic (Current) Use Of Anticoagulants Oct 05 2010 [...] 2:12PM Atrial Fibrillation Oct 19 2010 2:12PM Awnings Mechanic (Current) Use Of Anticoagulants Oct 19 2010 [...] 2:58PM Atrial Fibrillation Nov 16 2010 2:58PM Awnings Mechanic (Current) Use Of Anticoagulants Nov 16 2010 [...] 2:04PM Atrial Fibrillation Jan 21 2011 2:04PM Awnings Mechanic (Current) Use Of Anticoagulants Jan 21 2011 [...] 10:00AM Atrial Fibrillation Apr 13 2011 10:00AM Awnings Mechanic (Current) Use Of Anticoagulants Apr 13 2011 [...] 10:33AM Atrial Fibrillation Aug 11 2011 10:33AM Correction (Current) Use Of Anticoagulants Aug 11 2011 [...] 11:10AM Atrial Fibrillation Aug 16 2011 11:10AM Correction (Current) Use Of Anticoagulants Aug 16 2011 [...] 1:51PM Atrial Fibrillation Sep 08 2011 1:51PM Correction (Current) Use Of Anticoagulants Sep 08 2011 [...] 3:51PM Atrial Fibrillation Sep 21 2011 3:51PM Awnings Mechanic (Current) Use Of Anticoagulants Sep 21 2011 [...] 3:55PM Atrial Fibrillation Sep 29 2011 3:55PM Correction (Current) Use Of Anticoagulants Sep 29 2011 [...] 1:08PM Atrial Fibrillation Dec 16 2011 1:08PM Awnings Mechanic (Current) Use Of Anticoagulants Dec 16 2011 [...] 4:15PM Atrial Fibrillation Sep 6 2011 4:15PM Awnings Mechanic (Current) Use Of Anticoagulants Sep 6 2011 4:15PM Hypothyroidism, Acquired Sep 2011 4:15PM [...] 1:24PM Atrial Fibrillation Oct 16 2012 1:24PM Awnings Mechanic (Current) Use Of Anticoagulants Oct 16 2012 [...] 1:08PM Atrial Fibrillation May 07 2013 1:08PM Awnings Mechanic (Current) Use Of Anticoagulants May 07 2013 [...] 2:44PM Pre-op examination Nov 18 2014 1:28PM Payers Insurance Name Company Name Plan Name Plan Number Policy Number Policy Group Number Start Date Medicare Part A Medicare Part A [id number] N/A [facility] [id number] N/A [employer] Equitable Life Supplement [id number] Thursday, 2013 [employer] Equitable & You [id number] Thursday, 2013 Medicare Part B Medicare Of [place] [id number] Wednesday, [id number], [facility] History of Encounters Visit Date Visit Type Provider 11/18/2014 Office visit Virginia Pollock ASSOCIATE PROFESSOR OF GEOLOGY 10/08/2014 Nurse visit Jose Roberto Troy ASSOCIATE PROFESSOR OF GEOLOGY 09/24/2014 Office visit Virginia Pollock ASSOCIATE PROFESSOR OF GEOLOGY 07/17/2014 Office visit Collette Gonzales MD 04/15/2014 Office visit Collette Gonzales MD 03/07/2014 Office visit Mariano Fonseca MD 01/17/2014 Office visit Virginia Pollock ASSOCIATE PROFESSOR OF GEOLOGY 09/18/2013 Office visit Collette Gonzales MD 06/29/2013 Office visit Jose Roberto Troy ASSOCIATE PROFESSOR OF GEOLOGY 05/07/2013 Office visit Verónica Seay MD 03/13/2013 Hospital Shawanda Monterroso MD 01/23/2013 Office visit Virginia Pollock ASSOCIATE PROFESSOR OF GEOLOGY 11/27/2012 Office visit Virginia Pollock ASSOCIATE PROFESSOR OF GEOLOGY 11/02/2012 Office visit Verónica Seay MD 10/16/2012 Office visit Verónica Seay MD 06/27/2012 Office visit Lai Sharp MD 05/10/2012 Office visit Lai Sharp MD 04/19/2012 Office visit Lai Sharp MD 02/17/2012 Office visit Verónica Seay MD 12/16/2011 Office visit Verónica Seay MD 11/05/2011 [facility] Shawanda Monterroso MD 09/29/2011 Office visit Verónica Seay MD 09/21/2011 Office visit Verónica Seay MD 09/08/2011 Office visit Verónica Seay MD 08/16/2011 Office visit Verónica Seay MD 08/13/2011 Nurse visit Verónica Seay MD 08/12/2011 Nurse visit Verónica Seay MD 08/11/2011 Office visit Verónica Seay MD 07/08/2011 Office visit Tanya Rodriguez ASSOCIATE PROFESSOR OF GEOLOGY 04/13/2011 Office visit Verónica Seay MD 01/21/2011 [...]
--- NOTE | 2017-09-30 13:15 | Diagnostic Imaging Report ---
EXAMINATION: CT of the head without contrast. INDICATION: Altered metal status. COMPARISON: There are no prior studies available for comparison. TECHNIQUE: Contiguous axial sections were taken through the skull. FINDINGS: There is no mass, shift of the midline, or hemorrhage to suggest an acute intracranial abnormality. There is no sign of an asymmetric hyperdense vessel. The ventricles are not abnormally dilated. There is cortical atrophy present. The degree of atrophy is consistent with the patient's age. There are also diffuse areas of diminished density in the periventricular white matter bilaterally. These findings are nonspecific but may be secondary to encephalomalacia from microvascular ischemia. The bone windows show no evidence for a fracture or for a destructive lesion. The orbits are symmetrical and within normal limits. The sinuses are generally clear. IMPRESSION: 1. There is no evidence for an acute intracranial abnormality. 2. If clinical concern regarding an underlying abnormality persists, then MRI would be recommended for further study. 3. These results were discussed with Ezekiel Graves APRN. Dictated by: Dictated on workstation # [id number]
--- OUTSIDE RECORDS SUMMARY | 2017-09-30 13:17 | XMS REPORT ---
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 Apr 20 2010 10:48AM Hypothyroidism, Acquired Apr 20 2010 10:48AM Anxiety Disorder Apr 20 2010 10:48AM Chronic Obstructive Pulmonary Disease Apr 20 2010 10:48AM Essential Hypertension May 20 2010 1:10PM Hyperlipidemia May 20 2010 1:10PM Atrial Fibrillation May 20 2010 1:10PM 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 20 2010 1:10PM Hypothyroidism, Acquired May 20 2010 1:10PM Anxiety Disorder May 20 2010 1:10PM Chronic Obstructive Pulmonary Disease May 20 2010 1:10PM Neuropathy May 20 2010 1:10PM Essential Hypertension Aug 21 2010 9:25AM Hyperlipidemia Aug 21 2010 9:25AM Atrial Fibrillation Aug 21 2010 9:25AM Custodial (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 Aug 21 2010 9:25AM Hypothyroidism, Acquired Aug 21 2010 9:25AM Neuropathy Aug 21 2010 9:25AM Anxiety Disorder Aug 21 2010 9:25AM Chronic Obstructive Pulmonary Disease Aug 21 2010 9:25AM Essential Hypertension Sep 07 2010 4:10PM Hyperlipidemia Sep 07 2010 4:10PM Atrial Fibrillation Sep 07 2010 4:10PM Custodial (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 Sep 07 2010 4:10PM Hypothyroidism, Acquired Sep 07 2010 4:10PM Neuropathy Sep 07 2010 4:10PM Anxiety Disorder Sep 07 2010 4:10PM Chronic Obstructive Pulmonary Disease Sep 07 2010 4:10PM Diarrhea Sep 07 2010 4:10PM Psoriasis 01/15/2016 Essential Hypertension Sep 30 2010 10:07AM Hyperlipidemia Sep 30 2010 10:07AM Atrial Fibrillation Sep 30 2010 10:07AM 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 Sep 30 2010 [...] 2:08PM Atrial Fibrillation Oct 05 2010 2:08PM 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 Oct 05 2010 [...] 2:12PM Atrial Fibrillation Oct 19 2010 2:12PM Custodial (Current) Use Of Anticoagulants Oct 19 2010 [...] 2:58PM Atrial Fibrillation Nov 16 2010 2:58PM Custodial (Current) Use Of Anticoagulants Nov 16 2010 [...] 2:04PM Atrial Fibrillation Jan 21 2011 2:04PM 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 Jan 21 2011 [...] 10:00AM Atrial Fibrillation Apr 13 2011 10:00AM Custodial (Current) Use Of Anticoagulants Apr 13 2011 [...] 10:33AM Atrial Fibrillation Aug 11 2011 10:33AM Custodial (Current) Use Of Anticoagulants Aug 11 2011 [...] 11:10AM Atrial Fibrillation Aug 16 2011 11:10AM Custodial (Current) Use Of Anticoagulants Aug 16 2011 [...] 1:51PM Atrial Fibrillation Sep 08 2011 1:51PM 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 Sep 08 2011 [...] 3:51PM Atrial Fibrillation Sep 21 2011 3:51PM Custodial (Current) Use Of Anticoagulants Sep 21 2011 [...] 3:55PM Atrial Fibrillation Sep 29 2011 3:55PM Custodial (Current) Use Of Anticoagulants Sep 29 2011 [...] 1:08PM Atrial Fibrillation Dec 16 2011 1:08PM Custodial (Current) Use Of Anticoagulants Dec 16 2011 [...] 4:15PM Atrial Fibrillation Feb 17 2012 4:15PM 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 Feb 17 2012 4:15PM Hypothyroidism, Acquired Feb 17 2012 4:15PM Myalgia Sep 6 2011 4:15PM Osteoporosis Sep 2011 4:15PM Neuropathy Sep 2011 4:15PM Anxiety Disorder Sep 2011 4:15PM Chronic Obstructive Pulmonary Disease Sep 2011 4:15PM Fatigue Sep 6 2011 4:15PM [...] 1:24PM Atrial Fibrillation Oct 16 2012 1:24PM Custodial (Current) Use Of Anticoagulants Oct 16 2012 [...] 1:08PM Atrial Fibrillation May 07 2013 1:08PM 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 07 2013 [...] 1:57PM Actinic keratosis Apr 30 2016 1:55PM Payers Insurance Name Company Name Plan Name Plan Number Policy Number Policy Group Number Start Date Medicare Part A Medicare [facility] [id number] N/A [employer] [id number] Tuesday, 2015 Medicare Part A Medicare - Lab/Xray [id number] N/A Medicare Part B Medicare Of [place] [id number] Wednesday, November 11, 1992 BCBS [facility] [id number] Wednesday, September 03, 2008 Medicare Part A Medicare Part A [id number] N/A [employer] Equ[employer] Life MC Supplement [id number] Thursday, June 13, 2013 [employer] You [id number] Thursday, June 13, 2013 [facility] [id number] N/A History of Encounters Visit Date Visit [...] MD 06/29/2013 Office visit Jose Roberto Troy XEROX MACHINE ASSEMBLER 05/07/2013 Office visit Verónica Seay MD 03/13/2013 Hospital Shawanda Monterroso MD 01/23/2013 Office visit Virginia Pollock XEROX MACHINE ASSEMBLER 11/27/2012 Office visit Virginia Pollock XEROX MACHINE ASSEMBLER 11/02/2012 Office visit Verónica Seay MD 10/16/2012 [...] Seay MD 07/08/2011 Office visit Tanya Rodriguez XEROX MACHINE ASSEMBLER 04/13/2011 Office visit Verónica Seay MD 01/21/2011 [...]
--- NOTE | 2017-09-30 13:20 | Diagnostic Imaging Report ---
INDICATION: Shortness of breath. TIME OF EXAM: 01:22 p.m. No prior studies are available for comparison. FINDINGS: The heart is mildly enlarged. There appear to be some calcified lymph nodes in the left hilum consistent with prior granulomatous exposure. No infiltrates are seen. No effusion or pneumothorax is identified. IMPRESSION: Mild cardiomegaly. No acute cardiopulmonary process is detected. Dictated by: Dictated on workstation # [id number]
--- OUTSIDE RECORDS SUMMARY | 2017-09-30 13:20 | XMS REPORT ---
Author Eliseo Green [facility] Address [address] [place], [place] [id number] Care Team Providers Care Meat Trimmer Name Role Phone Eliseo Malave PCP Collette Cardenas PreferredProvider Allergies and Adverse Reactions Name Reaction [...] 1 capsule by oral route daily vitamin L70-ksocu acid 500-400 mcg oral tablet take 1 [...] a day as needed for 30 days Name Start Date Expiration [...] HC BMI BSA BMI Percentile O2 Sat(%) 12/09/2016 1:33:00 PM 118 mmHg 70 mmHg [...] POCT 5.9 CALLED TO/BY REPORTED TO DR CARDENAS AT 164[address] 10/19/2014 12:29 PM PROTIME [...] POCT 7.8 CALLED TO/BY REPORTED TO RONALD FERNANDEZ,TEREZA CAN/ROLLY 12/26/2014 10:36 AM WBC 7.1 RBC [...] 10:48AM Atrial Fibrillation Apr 20 2010 10:48AM 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 Apr 20 2010 [...] 9:25AM Atrial Fibrillation Aug 21 2010 9:25AM 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 Aug 21 2010 9:25AM Hypothyroidism, Acquired Aug 21 2010 9:25AM Neuropathy Aug 21 2010 9:25AM Anxiety Disorder Aug 21 2010 9:25AM Chronic Obstructive Pulmonary Disease Aug 21 2010 9:25AM Essential Hypertension Sep 07 2010 4:10PM Hyperlipidemia Sep 07 2010 4:10PM Atrial Fibrillation Sep 07 2010 4:10PM 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 Sep 07 2010 4:10PM Hypothyroidism, Acquired Sep 07 2010 4:10PM Neuropathy Sep 07 2010 4:10PM Anxiety Disorder Sep 07 2010 4:10PM Chronic Obstructive Pulmonary Disease Sep 07 2010 4:10PM Diarrhea Sep 07 2010 4:10PM Psoriasis 01/15/2016 Essential Hypertension Sep 30 2010 10:07AM Hyperlipidemia Sep 30 2010 10:07AM Atrial Fibrillation Sep 30 2010 10:07AM 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 Sep 30 2010 [...] 2:08PM Atrial Fibrillation Oct 05 2010 2:08PM 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 Oct 05 2010 [...] 2:04PM Atrial Fibrillation Jan 21 2011 2:04PM Custodial (Current) Use Of Anticoagulants Jan 21 2011 [...] 10:00AM Atrial Fibrillation Apr 13 2011 10:00AM 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 Apr 13 2011 [...] 10:33AM Atrial Fibrillation Aug 11 2011 10:33AM 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 Aug 11 2011 [...] 11:10AM Atrial Fibrillation Aug 16 2011 11:10AM 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 Aug 16 2011 [...] 1:51PM Atrial Fibrillation Sep 08 2011 1:51PM Custodial (Current) Use Of Anticoagulants Sep 08 2011 [...] 1:08PM Atrial Fibrillation Dec 16 2011 1:08PM 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 Dec 16 2011 [...] 4:15PM Atrial Fibrillation Sep 6 2011 4:15PM 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 Sep 6 2011 [...] 1:24PM Atrial Fibrillation Oct 16 2012 1:24PM 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 Oct 16 2012 [...] 1:08PM Atrial Fibrillation May 07 2013 1:08PM 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 May 07 2013 [...] Jul 17 2014 3:49PM Numbness and Tingling b 2014 [...] 1:39PM Actinic keratosis Dec 09 2016 1:39PM Payers Insurance Name Company Name Plan Name Plan Number Policy Number Policy Group Number Start Date Medicare RHC Medicare RHC [id number] N/A [employer] Equ[employer] You [id number] Tuesday, 2015 Medicare Part A Medicare - Lab/Xray [id number] N/A Medicare Part B Medicare Of [place] [id number] Wednesday, November 11, 1992 [facility] [id number] Wednesday, September 03, 2008 Medicare Part A Medicare Part A [id number] N/A [employer] Equitable Life Supplement [id number] Thursday, June 13, 2013 [employer] Equ[employer] You [id number] Thursday, June 13, 2013 [facility] [id number] N/A History of Encounters Visit Date Visit Type Provider 12/09/[address] Eliseo Malave MD 06/09/2016 Office visit Jose Roberto Troy CONTRACT MODELER 04/30/2016 Procedures Prem Thomasholley DO 04/09/[address] Eliseo Malave MD 01/15/[address] Eliseo Malave MD 11/24/[address] Eliseo Malave MD 10/03/[address] Eliseo Malave MD 09/17/2015 Office visit Jose Roberto Troy CONTRACT MODELER 02/06/2015 Hospital Giana Mendes MD 02/06/2015 Office visit Collette Cardenas MD 12/30/2014 Office visit Jose Roberto Troy CONTRACT MODELER 12/26/2014 Office visit Jose Roberto Troy CONTRACT MODELER 11/21/2014 Hospital Shawanda Monterroso MD 11/21/2014 Office visit Collette Cardenas MD 11/18/2014 Office visit Virginia Pollock CONTRACT MODELER 10/08/2014 Nurse visit Jose Roberto Troy CONTRACT MODELER 09/24/2014 Office visit Virginia Pollock CONTRACT MODELER 07/17/2014 Office visit Collette Cardenas MD 04/15/2014 Office visit Collette Cardenas MD 03/07/2014 Office visit Mariano Fonseca MD 01/17/2014 Office visit Virginia Pollock CONTRACT MODELER 09/18/2013 Office visit Collette Cardenas MD 06/29/2013 Office visit Jose Roberto Troy CONTRACT MODELER 05/07/2013 Office visit Verónica Seay MD 03/13/2013 Hospital Shawanda Monterroso MD 01/23/2013 Office visit Virginia Pollock CONTRACT MODELER 11/27/2012 Office visit Virginia Pollock CONTRACT MODELER 11/02/2012 Office visit Verónica Seay MD 10/16/2012 Office visit Verónica Seay MD 06/27/2012 Office visit Lai Sharp MD 05/10/2012 Office visit Lai Sharp MD 04/19/2012 Office visit Lai Sharp MD 02/17/2012 Office visit Verónica Saey MD 12/16/2011 Office visit Verónica Seay MD 11/05/2011 [facility] Ubaldo Monterroso MD 09/29/2011 Office visit Verónica Seay MD 09/21/2011 Office visit Verónica Seay MD 09/08/2011 Office visit Verónica Seay MD 08/16/2011 Office visit Verónica Seay MD 08/13/2011 Nurse visit Verónica Seay MD 08/12/2011 Nurse visit Verónica Seay MD 08/11/2011 Office visit Verónica Seay MD 07/08/2011 Office visit Tanya Rodriguez CONTRACT MODELER 04/13/2011 Office visit Verónica Seay MD 01/21/2011 Office visit Verónica eSay MD 12/01/2010 Office visit Betty FREEMAN 11/16/2010 [...]
--- OUTSIDE RECORDS SUMMARY | 2017-09-30 13:20 | XMS REPORT | Continuity of Care Document ---
Author Author [facility] Organization [facility] Address Unknown Phone Unavailable Allergies Active Description Code Type Severity Reaction Onset Reported/Identified Relationship to Patient Clinical Status Yes NKDA N/A N/A Medications There is no data. Problems There is no data. Procedures There is no data. Results There is no data. Encounters ACCT No. Visit Date/Time Discharge Status Pt. Type Provider Facility Loc./Unit Complaint [id number] 08/23/2017 14:28:38 08/23/2017 23:59:59 CLS Outpatient Kelvin Desouza [id number] 08/09/2017 12:22:22 08/09/2017 23:59:59 CLS Outpatient Eliseo Malave [id number] 07/22/2017 11:43:34 07/22/2017 23:59:59 CLS Outpatient Shawanda Monterroso [id number] 07/05/2017 12:04:07 07/05/2017 23:59:59 CLS Outpatient Eliseo Malave [id number] 04/29/2017 12:22:36 04/29/2017 23:59:59 CLS Outpatient Shawanda Monterroso [id number] 01/11/2017 11:12:27 01/11/2017 23:59:59 CLS Outpatient Eliseo Malave [id number] 12/09/2016 14:20:45 12/09/2016 23:59:59 CLS Outpatient Eliseo Malave [id number] 06/09/2016 18:22:06 06/09/2016 23:59:59 CLS Outpatient Jose Roberto Troy [id number] 04/30/2016 12:00:25 04/30/2016 23:59:59 CLS Outpatient Prem Kim [id number] 04/09/2016 10:46:55 04/09/2016 23:59:59 CLS Outpatient Eliseo Malave [id number] 01/15/2016 16:32:21 01/15/2016 23:59:59 CLS Outpatient Eliseo Malave [id number] 02/10/2015 19:30:26 02/10/2015 23:59:59 CLS Outpatient Giana Mendes [id number] 02/09/2015 18:08:39 02/09/2015 23:59:59 CLS Outpatient Shawanda Monterroso [id number] 02/06/2015 18:15:22 02/06/2015 23:59:59 CLS Outpatient JanetCollette [id number] 01/20/2015 22:19:04 01/20/2015 23:59:59 CLS Outpatient Jose Roberto Troy [id number] 01/20/2015 22:17:07 01/20/2015 23:59:59 CLS Outpatient Jose Roberto Tory [id number] 01/20/2015 21:53:27 01/20/2015 23:59:59 CLS Outpatient Collette Gonzales [id number] 01/20/2015 21:50:40 01/20/2015 23:59:59 CLS Outpatient Virginia Pollock [id number] 10/08/2014 17:05:17 10/08/2014 23:59:59 CLS Outpatient Jose Roberto Troy [id number] 09/24/2014 13:58:32 09/24/2014 23:59:59 CLS Outpatient PhillVirginia [id number] 04/15/2014 16:26:37 04/15/2014 23:59:59 CLS Outpatient Collette Gonzales [id number] 03/07/2014 14:02:32 03/07/2014 23:59:59 CLS Outpatient Mariano Fonseca [id number] 01/17/2014 12:48:39 01/17/2014 23:59:59 CLS Outpatient Virginia Pollock [id number] 09/18/2013 10:16:00 09/18/2013 23:59:59 CLS Outpatient Collette Gonzales [id number] 06/29/2013 12:25:18 06/29/2013 23:59:59 CLS Outpatient Jose Roberto Troy [id number] 06/08/2013 16:38:38 Document Registration [id number] 12/23/2016 11:56:02 12/23/2016 23:59:59 CLS Outpatient Jerel Person [id number] 01/20/2016 15:55:13 01/20/2016 23:59:59 CLS Outpatient Jerel Person [id number] 07/23/2015 16:53:46 07/23/2015 23:59:59 CLS Outpatient PersonJerel adhikari [id number] 01/16/2015 12:05:21 01/16/2015 23:59:59 CLS Outpatient PersonJerel adhikari [id number] 01/03/2015 10:03:12 01/03/2015 23:59:59 CLS Outpatient Jerel Person [id number] 01/01/2014 15:32:33 01/01/2014 23:59:59 CLS Outpatient eJrel Person [id number] 12/01/2012 15:19:25 12/01/2012 23:59:59 CLS Outpatient Jerel Person [id number] 01/22/2016 19:16:00 01/22/2016 19:16:00 [facility] Outpatient [facility]
[2017-09-30 14:01] VITALS: BP 133/125
== END 2017-09-30 14:01 | disposition home or self-care (01) ==
LOC: ER 12:04
DX: N39.0 Urinary tract infection, site not specified (principal); R41.0 Disorientation, unspecified; F09 Unspecified mental disorder due to known physiological condition; R29.701 NIHSS score 1
CPT/HCPCS: 36415; 70450; 71045; 80053; 81000; 82962; 84484; 85025; 85379; 85610; 85730; 87088; 93005; 93041